=== PATIENT | female | born 1985 | race Caucasian/White ===

== ENCOUNTER 2021-07-22 14:12 | Emergency (ER) | payer MEDICAID, SELFPAY ==
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
[2021-07-22 14:19] VITALS: BP 110/72; PULSE 83; O2SAT 98
[2021-07-22 14:33] VITALS: BP 103/66; PULSE 74; RESP 18; TEMP 36.7; O2SAT 99; BMI 35.2
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
== END 2021-07-22 15:39 | disposition home or self-care (01) ==
PROVIDERS: Emergency Provider Internal Medicine; PCP Family Medicine
DX: S93.492A Sprain of other ligament of left ankle, initial encounter (principal); S40.812A Abrasion of left upper arm, initial encounter; S90.512A Abrasion, left ankle, initial encounter; X58.XXXA Exposure to other specified factors, initial encounter; Y93.9 Activity, unspecified; Y92.9 Unspecified place or not applicable; Y99.9 Unspecified external cause status; Z79.899 Other long term (current) drug therapy
CPT/HCPCS: 73610; 73630; 99283

== ENCOUNTER 2021-07-27 14:44 | Outpatient (REF) | payer MEDICAID, SELFPAY ==
--- NOTE | ~2021-07-27 | XR_ITS ---
EXAMINATION: XR SHOULDER, LEFT CLINICAL INFORMATION: Pain COMPARISON: None TECHNIQUE: AP external rotation, Grashey, scapular Y, and axillary views of the left shoulder. FINDINGS: The bones and soft tissues are normal. No fracture. Glenohumeral and acromioclavicular alignment is anatomic with normal joint space. No abnormal soft tissue calcifications. XR/XR shoulder LT min 2V IMPRESSION: Normal left shoulder.
== END 2021-07-27 14:45 | disposition home or self-care (01) ==
LOC: HO.LAB 14:44
PROVIDERS: Absent Provider Family Medicine; PCP Family Medicine; Visit Provider Nurse Practitioner Primary Care
DX: M25.512 Pain in left shoulder (principal)
CPT/HCPCS: 73030

== ENCOUNTER 2022-09-10 12:26 | Emergency (ER) | payer MEDICAID, SELFPAY ==
--- NOTE | ~2022-09-10 | CT_ITS ---
EXAMINATION: CT HEAD WITHOUT CONTRAST CLINICAL INFORMATION: Headache and hand tingling COMPARISON: None TECHNIQUE: Contiguous axial imaging was performed from the skull base to vertex without intravenous administration of contrast. This CT examination was performed using dose optimization techniques as appropriate, variously including the following: *Automated exposure control *Adjustment of mA and/or kV according to patient size (this includes techniques or standardized protocols for targeted exams where dose is matched to indication/reason for exam; i.e. extremities or head) *Use of iterative reconstruction technique DLP: 692 mGy-cm FINDINGS: Findings: There is no evidence for an extra-axial collection. There is no evidence for intra-or extra-axial hemorrhage. The ventricles and extra-axial CSF spaces are appropriate. Guerra-white matter differentiation is normal. No mass, mass effect or infarct is seen. Review of bone windows is normal. Visualized paranasal sinuses, mastoid air cells and middle ears are clear. CT/CT head/brain wo IV con IMPRESSION: Unremarkable exam.
[2022-09-10 12:37] VITALS: BP 129/83; PULSE 70; RESP 18; TEMP 36.2; O2SAT 98; BMI 33.5
--- NOTE | 2022-09-10 12:47 | ED.HA ---
HPI - Headache General Chief Complaint: Headache <Caleb Rose MD - Last Filed: 09/10/22 12:49> Stated Complaint: r eye drooping <Caleb Rose MD - Last Filed: 09/10/22 12:49> Time Seen by Provider: 09/10/22 14:57 <Caleb Rose MD - Last Filed: 09/10/22 12:49> Source: patient <POONAM Macedo - Last Filed: 09/10/22 15:58> Mode of arrival: ambulatory <POONAM Macedo - Last Filed: 09/10/22 15:58> Limitations: no limitations <POONAM Macedo - Last Filed: 09/10/22 15:58> History of Present Illness HPI Narrative: 37-year-old female with history of migraine headaches presents to the ER for evaluation of rights sided eye droop and swelling of her upper eyelid that started yesterday when she woke up. She also showed that her right arm was numb when she woke up yesterday from the elbow down to the hand. She states she sleeps on her back and did not sleep on that arm. She reports the numbness is now resolved but she reports pain in her right forearm with any movement of her hand or wrist, or with palpation. She denies any weakness in the right side just pain. She reports today when she woke up the right eyelid with a little more swollen and droopy than it was yesterday. She denies any difficulty with speech or swallowing. She reports she is treated with multiple medications for migraines and she has had throbbing headaches lately. She had meds adjusted by her PCP and is due to see them in 1 month. <POONAM Macedo - Last Filed: 09/10/22 15:58> MD elicited complaint: headache and other (Right eyelid drooping and right arm numbness and pain) <POONAM Macedo - Last Filed: 09/10/22 15:58> Pertinent past history: migraines <POONAM Macedo - Last Filed: 09/10/22 15:58> Onset (ago): day(s) (1) <POONAM Macedo Last Filed: 09/10/22 15:58> Onset description: suddenly <POONAM Macedo Last Filed: 09/10/22 15:58> Location: right <POONAM Macedo - Last Filed: 09/10/22 15:58> Severity: moderate <POONAM Macedo - Last Filed: 09/10/22 15:58> Quality & Timing: aching and throbbing <POONAM Macedo - Last Filed: 09/10/22 15:58> Exacerbating factors: none <POONAM Macedo - Last Filed: 09/10/22 15:58> Relieving factors: nothing <POONAM Macedo - Last Filed: 09/10/22 15:58> Context: occurred at rest <POONAM Macedo - Last Filed: 09/10/22 15:58> Treatments prior to arrival: none <POONAM Macedo - Last Filed: 09/10/22 15:58> Related Data Home Medications: Previous Rx's Medication Instructions Recorded cyclobenzaprine 10 mg tablet 10 mg PO TID PRN muscle spasm #10 07/22/21 tabs ibuprofen 600 mg tablet 600 mg PO Q8H PRN pain #20 tabs 07/22/21 <Caleb Rose MD - Last Filed: 09/10/22 12:49> Allergies/Adverse Reactions: Allergies Allergy/AdvReac Type Severity Reaction Status Date / Time No Known Allergies Allergy Mild UNKNOWN Verified 07/22/21 14:35 <Caleb Rose MD - Last Filed: 09/10/22 12:49> Review of Systems Review of Systems: Constitutional: No Fever, No Chills ENT/Mouth: No sore throat, No Rhinorrhea, No Swallowing Difficulty Eyes: No Eye Pain, + Swelling, No Redness Cardiovascular: No Chest Pain, No SOB Respiratory: No Cough, No Sputum, No Wheezing, No dyspnea Gastrointestinal: No Nausea, No Vomiting, No Diarrhea, No abdominal Pain Musculoskeletal: No joint pain, No Myalgias Skin: No Skin Lesions, No rash Neuro: No Weakness, + Numbness, No Dizziness, + Headache Psych: + Anxiety/Panic, No Depression Heme/Lymph: No Bruising, No Lymphadenopathy <POONAM Macedo - Last Filed: 09/10/22 15:58> [facility] Past Medical History Medical History: Medical History (Updated 11/22/22 @ 15:29 by POONAM Macedo) No known health problems <Caleb Rose MD - Last Filed: 09/10/22 12:49> Social History Social History: Social History Advance Directives: No Advance Directives Information Provided: No <Caleb Rose MD - Last Filed: 09/10/22 12:49> Physical Exam Vital Signs: Vital Signs: Last Vital Signs Temp 98.6 F 09/10/22 15:32 Pulse 74 09/10/22 15:32 Resp 16 09/10/22 15:32 BP 111/69 09/10/22 15:32 Pulse Ox 98 09/10/22 15:32 O2 Del Method 09/10/22 15:32 BMI result Body Mass Index 33.5 <Caleb Rose MD - Last Filed: 09/10/22 12:49> Vital Signs: Last Vital Signs Temp 98.6 F 09/10/22 15:32 Pulse 74 09/10/22 15:32 Resp 16 09/10/22 15:32 BP 111/69 09/10/22 15:32 Pulse Ox 98 09/10/22 15:32 O2 Del Method 09/10/22 15:32 BMI result Body Mass Index 33.5 <POONAM Macedo - Last Filed: 09/10/22 15:58> Appearance: Alert. Oriented X3. No acute distress. Eyes: Right upper eyelid with mild generalized swelling and ptosis. No erythema. Pupils equal, round and reactive to light. ENT: Pharynx normal. Neck: Normal inspection. Neck supple. No midline tenderness. Normal range of motion. CVS: Normal heart rate and rhythm. Pulses normal. Respiratory: No respiratory distress. Breath sounds normal. Skin: Skin warm and dry. Normal skin color. Normal skin turgor. No rashes. Extremities: No lower extremity edema. Neuro: Oriented X 3. No motor deficit. No sensory deficit. CN II-XII intact. Normal speech and cognition. Strength is equal and symmetrical throughout. <POONAM Macedo - Last Filed: 09/10/22 15:58> NIH Stroke Scale Internal: Initial- Upon Arrival <POONAM Macedo - Last Filed: 09/10/22 15:58> Level of Consciousness: Alert <POONAM Macedo - Last Filed: 09/10/22 15:58> Level of Consciousness Questions: Answers both questions correctly <POONAM Macedo - Last Filed: 09/10/22 15:58> Level of Consciousness Commands: Performs both tasks correctly <POONAM Macedo - Last Filed: 09/10/22 15:58> Best Gaze: Normal <POONAM Macedo - Last Filed: 09/10/22 15:58> Visual: No visual loss <POONAM Macedo - Last Filed: 09/10/22 15:58> Facial Palsy: Minor paralyis <POONAM Macedo - Last Filed: 09/10/22 15:58> Motor Arm (Right): No drift <POONAM Macedo - Last Filed: 09/10/22 15:58> Motor Arm (Left): No drift <POONAM Macedo - Last Filed: 09/10/22 15:58> Motor Leg (Right): No drift <POONAM Macedo - Last Filed: 09/10/22 15:58> Motor Leg (Left): No drift <POONAM Macedo - Last Filed: 09/10/22 15:58> Limb Ataxia: Absent <POONAM Macedo - Last Filed: 09/10/22 15:58> Sensory: Normal <POONAM Macedo - Last Filed: 09/10/22 15:58> Best Language: No aphasia <POONAM Macedo - Last Filed: 09/10/22 15:58> Dysarthia: Normal <POONAM Macedo - Last Filed: 09/10/22 15:58> Extinction and Inattention: No abnormality <POONAM Macedo - Last Filed: 09/10/22 15:58> Score: 1 <POONAM Macedo - Last Filed: 09/10/22 15:58> Course Reevaluation(s) Reevaluation #1: 37 yo female with history of migraine headache c/o right facial numbness, droopy eye and right hand tingling which started yesterday. Currently on topamax, sumitriptan prn and zofran prn for headaches. No known tick bite. Never had imaging. Lyme titer and CT head ordered. <Caleb Rose MD - Last Filed: 09/10/22 12:49> Time: 12:47 <Caleb Rose MD - Last Filed: 09/10/22 12:49> Reevaluation #2: Patient seen and evaluated in the emergency department. Her exam is not consistent with Thomas's palsy. Her CT scan is negative. She has no sensory or motor deficits on examination. Her right eye droop is due to some right upper eyelid swelling, unclear etiology. Lyme titer was sent. Case discussed with Dr. Roes, could be due to atypical migraine. She has an appointment with her PCP coming up after medications were adjusted. Comfortable with discharge home with outpatient follow-up. Patient advised come back to the ER symptoms were to worsen. <POONAM Macedo - Last Filed: 09/10/22 15:58> Time: 15:40 <POONAM Macedo - Last Filed: 09/10/22 15:58> Critical Care Time Critical Care Time Critical Care Time: No <POONAM Macedo - Last Filed: 09/10/22 15:58> Discharge Plan Discharge Clinical Impression: Migraine, Arm pain, right <Caleb Rose MD - Last Filed: 09/10/22 12:49> Patient Disposition: Home, Self-Care <Caleb Rose MD - Last Filed: 09/10/22 12:49> Instructions: Migraine Headache (ED) <Caleb Rose MD - Last Filed: 09/10/22 12:49> Additional Instructions: Your head CT today was normal. If you test positive for Lyme, we will call [facility] started on antibiotics for this. Recommend rest, no strenuous activity or lifting with the right arm. Take your previously prescribed medications for her migraines. This may be a manifestation of an atypical migraine. Follow-up with your doctor. If you develop new or worsening symptoms call 911 or come back to the ER for further evaluation. <Caleb Rose MD - Last Filed: 09/10/22 12:49> Prescriptions: No Action ibuprofen 600 mg tablet 600 mg PO Q8H PRN (Reason: pain) Qty: 20 0RF cyclobenzaprine 10 mg tablet 10 mg PO TID PRN (Reason: muscle spasm) Qty: 10 0RF <Caleb Rose MD - Last Filed: 09/10/22 12:49> Referrals: Jazmín Quevedo MD [Primary Care Provider] - <Caleb Rose MD - Last Filed: 09/10/22 12:49> Stand Alone Forms: Work/School Release <Caleb Rose MD - Last Filed: 09/10/22 12:49> Interventions: ED Discharge Assessment Last Done: 09/10/22 15:48 <Caleb Rose MD - Last Filed: 09/10/22 12:49> Discharge Date/Time: 09/10/22 15:48 <Caleb Rose MD - Last Filed: 09/10/22 12:49>
--- NOTE | 2022-09-10 14:30 | PC.NURSE ---
PT reports right eye swelling, right arm pain. A&Ox4, neuro exam intact. Right eye lid swelling with redness noted. Denies trauma to area.
[2022-09-10 15:32] VITALS: BP 111/69; PULSE 74; RESP 16; TEMP 37; O2SAT 98
[2022-09-13 20:51] LABS: Lyme Abs Screen <0.90 index
== END 2022-09-10 15:48 | disposition home or self-care (01) ==
PROVIDERS: Emergency Medicine; Emergency Provider Emergency Medicine; PCP Family Medicine
DX: G43.909 Migraine, unspecified, not intractable, without status migrainosus (principal); R20.2 Paresthesia of skin; Z79.899 Other long term (current) drug therapy
CPT/HCPCS: 36415; 70450; 86617; 86618; 99283; 99284

== ENCOUNTER 2022-10-30 08:28 | Outpatient (REF) | payer MEDICAID, SELFPAY ==
--- NOTE | ~2022-10-30 | MR_ITS ---
EXAMINATION: MRI OF THE BRAIN WITHOUT CONTRAST CLINICAL INFORMATION: Increased headache with nausea, worse lying down. COMPARISON: CT scan of the head 09/10/2022. TECHNIQUE: MRI of the brain was obtained using routine sequences without contrast. FINDINGS: No diffusion abnormalities are identified to suggest an acute or subacute infarct. No mass effect or midline shift is seen. The ventricles and sulci are normal in size. Brain parenchymal signal is unremarkable. No extra-axial fluid collections are seen. The brainstem and cerebellum are normal. No pathologic magnetic susceptibility artifact is identified on the gradient refocused acquisition. The craniovertebral junction and marrow signal are normal. There is a 1.3 mm area of low signal in the pars intermedia region of the pituitary gland, which may be consistent with a pars intermedia cyst. The major intracranial flow-voids at the level of the [place] are preserved. The dural venous sinus flow-voids are maintained. The mastoid air cells are well-aerated. There is mucoperiosteal thickening in the inferior right maxillary and bilateral ethmoid sinuses. The left frontal sinus is hypoplastic. MR/MR head/brain wo con IMPRESSION: 1. There are no acute bleeds or infarcts. No masses are demonstrated. 2. There is mild paranasal sinus disease.
== END 2022-10-30 08:29 | disposition home or self-care (01) ==
LOC: HO.MRI 08:28
PROVIDERS: PCP Family Medicine; Visit Provider Family Medicine
DX: G44.049 Chronic paroxysmal hemicrania, not intractable (principal)
CPT/HCPCS: 70551

== ENCOUNTER → 2023-03-05 09:11 | Outpatient (BNVA) | payer MEDICAID, SELFPAY | PROVIDERS: PCP Family Medicine; Referring Provider Family Medicine; Visit Provider Internal Medicine | DX: R00.2 Palpitations (principal) | CPT/HCPCS: 93005; 99202 ==

== ENCOUNTER 2023-05-29 15:50 | Outpatient (REF) | payer MEDICAID, SELFPAY ==
--- NOTE | ~2023-05-29 | XR_ITS ---
EXAMINATION: XR WRIST, LEFT CLINICAL INFORMATION: Left wrist pain beginning one week ago. COMPARISON: None available. TECHNIQUE: PA, lateral, and oblique views of the left wrist. FINDINGS: The bones and soft tissues appear unremarkable. No fracture appreciated. Alignment is anatomic with normal joint spaces. No erosions or abnormal soft tissue calcifications. XR/XR wrist LT min 3V IMPRESSION: Normal Pavel film examination of the left wrist.
== END 2023-05-29 15:51 | disposition home or self-care (01) ==
LOC: HO.HHCX 15:50
PROVIDERS: Visit Provider Pediatrics
DX: S63.502A Unspecified sprain of left wrist, initial encounter (principal)
CPT/HCPCS: 73110

== ENCOUNTER 2023-06-11 08:07 | Outpatient (REF) | payer MEDICAID, SELFPAY ==
--- NOTE | ~2023-06-11 | MM_ITS ---
EXAMINATION: MM SCREENING DIGITAL BREAST TOMOSYNTHESIS, BILATERAL CLINICAL INFORMATION: Screening. Asymptomatic. COMPARISON: Mammography: None. Baseline exam. TECHNIQUE: Digital breast tomosynthesis is performed in both the craniocaudal and mediolateral oblique views along with computer-aided detection (CAD). Synthesized 2D images are generated from the tomosynthesis. FINDINGS: There are scattered areas of fibroglandular density (ACR BI-RADS breast composition Category b). There are bilateral nipple rings present. There is a metallic object in the far posterior, slightly medial and upper left breast, unknown etiology or significance. This is not typical for a biopsy clip. This localizes to the skin on tomographic images. In the left breast, lower inner quadrant, middle one third, is a focal asymmetry for which diagnostic views are recommended. In the left breast in the MLO view only, there is a second oval asymmetry in one view slightly upper aspect without definite CC correlate, mid depth, for which diagnostic views are recommended. No additional suspicious findings right breast. In the left breast, there are no suspicious masses, suspicious grouped calcifications, or areas of architectural distortion. MM/MM tomosynthesis screening BI IMPRESSION: 1. Focal asymmetry right breast slightly lower inner quadrant, middle one third, for which diagnostic views are recommended to include 3-D spot CC and spot MLO views. 2. One view asymmetry seen right breast on MLO view only, upper aspect, middle one third, for which diagnostic views recommended to include 3-D spot MLO view. 3. As always, should the findings persist, ultrasound should be scheduled at the discretion of the interpreting radiologist. 4. There are no suspicious findings in the left breast. ASSESSMENT: BI-RADS BI-RADS 0 - Incomplete: Needs additional Imaging. RECOMMENDATION: 1. Additional views of the right breast 2. Targeted ultrasound if warranted after review of the additional views. 3. Radiology department staff will contact the patient for additional imaging. Additional Imaging required This examination should not preclude the clinical evaluation of a suspicious palpable abnormality.
== END 2023-06-11 08:08 | disposition home or self-care (01) ==
LOC: HO.MAMMO 08:07
PROVIDERS: PCP Family Medicine; Visit Provider Family Medicine
DX: Z12.31 Encounter for screening mammogram for malignant neoplasm of breast (principal)
CPT/HCPCS: 77063; 77067

== ENCOUNTER → 2023-06-11 08:15 | Outpatient (BNV) | payer MEDICAID, SELFPAY | PROVIDERS: PCP Family Medicine; Visit Provider Radiology Diagnostic Radiology | DX: Z12.31 Encounter for screening mammogram for malignant neoplasm of breast (principal) | CPT/HCPCS: 77063; 77067 ==

== ENCOUNTER → 2023-07-02 08:00 | Outpatient (BNV) | payer MEDICAID, SELFPAY | PROVIDERS: PCP Family Medicine; Visit Provider Radiology Diagnostic Radiology | DX: R92.8 Other abnormal and inconclusive findings on diagnostic imaging of breast (principal) | CPT/HCPCS: 76642; 77061; 77065 ==

== ENCOUNTER 2023-07-02 08:02 | Outpatient (REF) | payer MEDICAID, SELFPAY ==
--- NOTE | ~2023-07-02 | US_ITS ---
EXAMINATION: MM DIAGNOSTIC DIGITAL BREAST TOMOSYNTHESIS, RIGHT US BREAST LIMITED, RIGHT MAMMOGRAPHY: CLINICAL INFORMATION: Follow-up from screening mammography: Evaluate one view asymmetry seen right MLO projection superiorly. Evaluate 2 view asymmetric density seen lower inner right breast, middle one third. COMPARISON: Mammography: Baseline screening examination 06/11/2023. TECHNIQUE: Digital right breast tomosynthesis is performed utilizing full-field right 3-D digital mediolateral view, as well as 3-D right spot compression MLO views x2, and CC compression view, along with computer-aided detection (CAD). Synthesized 2D images are generated from the tomosynthesis. FINDINGS: There are scattered areas of fibroglandular density (ACR BI-RADS breast composition Category b). On diagnostic views, the one view asymmetry seen in the upper right breast on the MLO projection appears to persist, however there is no correlate on either the MLO tomosynthesis, or 90 degree lateral right ML tomosynthesis. This most likely represents superimposition artifact of normal overlapping tissues but will be evaluated with subsequent ultrasound. The focal asymmetry in the right breast slightly lower inner quadrant, middle one third, persists on diagnostic views and will be evaluated with subsequent ultrasound. ULTRASOUND: CLINICAL INFORMATION: Evaluate asymmetries as detailed above. COMPARISON: No prior relevant ultrasound. TECHNIQUE: Targeted sonographic evaluation of the right breast was performed spanning the 3:00 to 5:00 positions, and 9-10 o'clock positions, using a high frequency linear transducer. Selected archived documentation. FINDINGS: RIGHT BREAST: There is a mixture of fatty and fibroglandular tissue. No suspicious mass is seen. There is no pathologic acoustic shadowing. There is fibrocystic change noted in the 9-10 o'clock axis. There is no definite ultrasonographic correlate to the asymmetries seen on mammography. US/US breast RT limited mamm only IMPRESSION: Right breast asymmetry is seen on mammography persist on diagnostic views but do not have ultrasonographic correlate. These findings most likely represent fibrocystic changes/overlapping breast tissues, and are probably benign. Six-month interval follow-up right breast mammography to include standard 3-D right CC and MLO views recommended to ensure stability. Results were discussed with the patient by the technologist. OVERALL ASSESSMENT: Mammography: BI-RADS 3 - Probably benign finding(s) - 6 month follow-up suggested Ultrasound: BI-RADS 3 - Probably benign finding(s) - 6 month follow-up suggested RECOMMENDATION: 6 Month F/U This patient's information was entered into a reminder system with a target due date for their next mammogram.
== END 2023-07-02 08:03 | disposition home or self-care (01) ==
LOC: HO.MAMMO 08:02
PROVIDERS: PCP Family Medicine; Visit Provider Family Medicine
DX: N64.89 Other specified disorders of breast (principal)
CPT/HCPCS: 76642; 77061; 77065

== ENCOUNTER 2023-07-11 17:42 | Outpatient (REF) | payer MEDICAID, SELFPAY | END 2023-07-11 17:43 | disposition home or self-care (01) | LOC: HO.LNP 17:42 | PROVIDERS: Visit Provider Registered Nurse | DX: B34.9 Viral infection, unspecified (principal) | CPT/HCPCS: 87070; 87147 ==

== ENCOUNTER 2023-07-23 02:40 | Emergency (ER) | payer MEDICAID, SELFPAY ==
--- NOTE | ~2023-07-23 | XR_ITS ---
EXAMINATION: XR CHEST CLINICAL INFORMATION: Concern for pneumonia. COMPARISON: None available. TECHNIQUE: Frontal view of the chest was obtained. FINDINGS: The cardiomediastinal silhouette is normal. There is no focal lung consolidation or pleural effusion. The bony structures and soft tissues are unremarkable. XR/XR chest 1V IMPRESSION: No active cardiopulmonary disease.
[2023-07-23 02:45] VITALS: BP 110/66; PULSE 79; RESP 18; TEMP 36.7; O2SAT 98; BMI 33.6
[2023-07-23 03:16] LABS: COVID-19 Test Negative (Negative); IDNOW Serial# BCCEAD1C
[2023-07-23 03:18] LABS: IDNOW Serial# 08D9AD1C; Influenza A Negative (Negative); Influenza B2 Negative (Negative)
[2023-07-23 03:58] VITALS: BP 91/60; PULSE 65; RESP 16; O2SAT 98
--- NOTE | 2023-07-23 05:11 | ED_ITS ---
HPI - URI/Sore Throat General Chief Complaint: Upper Respiratory Symptoms Stated Complaint: flu like symptoms Time Seen by Provider: 07/23/23 05:06 Source: patient Mode of arrival: ambulatory Limitations: no limitations History of Present Illness HPI Narrative: Patient comes in the emergency room complaining of 3 weeks of coughing, chest pain from cough, chills. Patient states that she has been tested multiple times for flu and COVID and it is negative. However, patient states the cough keeps getting worse. Patient shortness of breath, no fever at [place] Related Data Home Medications Medication Instructions Recorded Confirmed ondansetron HCl 4 mg tablet 4 mg PO PRN nausea 03/05/23 03/05/23 sumatriptan succinate 25 mg tablet 25 mg PO PRN 03/05/23 03/05/23 topiramate 25 mg tablet 25 mg PO QPM PRN migraine 03/05/23 03/05/23 Previous Rx's Medication Instructions Recorded cyclobenzaprine 10 mg tablet 10 mg PO TID PRN muscle spasm #10 07/22/21 tabs codeine 6.3 mg-guaifenesin 100 10 ml PO Q4-6H PRN cough #473 mL 07/23/23 mg/5 mL oral liquid Allergies Allergy/AdvReac Type Severity Reaction Status Date / Time No Known Allergies Allergy Mild UNKNOWN Verified 03/05/23 09:25 Review of Systems Review of Systems: Constitutional : No Weight loss, No Fever, No Chills, No Night Sweats, No Fatigue, No Malaise ENT/Mouth : No Hearing loss, No Ear Pain, complaining a of Nasal Congestion, No Sinus Pain, No Hoarseness, No sore throat, No Rhinorrhea, No Swallowing Difficulty Eyes: No Eye Pain, No Swelling, No Redness, No Foreign Body, No Discharge, No Vision Changes Cardiovascular : No Chest Pain, No SOB, No Dyspnea on Exertion, No Orthopnea, No Edema, No Palpitations Respiratory : Complaining of worsening cough, shortness of breath Gastrointestinal, no nausea vomiting, no Diarrhea, No Constipation, No abdominal Pain, No Hematochezia, No Melena Genitourinary : no irregular bleeding, No Dysuria, No Urinary Frequency, No Hematuria, No Urinary Incontinence, No Urgency, No Flank Pain, No Urinary Flow Changes, No Hesitancy Musculoskeletal : No joint pain, No Myalgias, No Joint Swelling Skin : No Skin Lesions, No rash Neuro : No Weakness, No Numbness, No Paresthesias, No Loss of Consciousness, No Dizziness, No Headache Psych : No Anxiety/Panic, No Depression, No SI/HI/AH/VH, No Social Issues, Heme/Lymph: No Bruising, No Bleeding,No Lymphadenopathy Endocrine : No Polyuria, No Polydipsia, No Temperature Intolerance PMF Past Medical History Medical History No known health problems Family History Family History (Updated 03/05/23 @ 09:26 by Marbella Rapp) Mother No problems noted. Social History Social History (Updated 03/05/23 @ 09:27 by Marbella Rapp) Patient Tobacco Use Status: Current everyday Tobacco user Tobacco use type: Cigarette Cigarettes Per Day: 6 Advance Directives: No Advance Directives Information Provided: No Physical Exam Vital Signs: Vital Signs: Last Vital Signs Temp 98.1 F 07/23/23 02:45 Pulse 65 07/23/23 03:58 Resp 16 07/23/23 03:58 BP 91/60 07/23/23 03:58 Pulse Ox 98 07/23/23 03:58 O2 Del Method Room Air 07/23/23 03:58 BMI result Body Mass Index 33.6 Const: Other: Appearance: Alert. Oriented X3. No acute distress. Eyes: Pupils equal, round and reactive to light. ENT: Pharynx normal. Patient does have nasal congestion, Neck: Normal inspection. Neck supple. No lymph nodes noted. No crepitus CVS: Normal heart rate and rhythm. Pulses normal. Normal S1 and S2 Respiratory: No respiratory distress. Breath sounds normal. No Wheezing. No rales Abdomen: Soft and nontender. No rigidity. No distention. Skin: Skin warm and dry. Normal skin color. Normal skin turgor. Extremities: No lower extremity edema. No Lacerations. No Rash Neuro: Oriented X 3. No motor deficit. No sensory deficit. Moving all extremities. No slurred speech. CN 2 through 12 grossly intact Psych: calm, cooperative, normal affect Course Course Course Narrative: -my interpretation of labs, patient tested negative for COVID RSV and flu -chest x-ray: Medical Decision Making Medical Decision Making [facility] Narrative: -my interpretation of chest x-ray: No pneumonia -interpretation of labs, negative for COVID, influenza -patient likely has chronic bronchitis Differential Diagnosis Differential Diagnoses: The differential diagnosis associated with the presentation includes (COVID, influenza, bronchitis, pneumonia cough earlier) Lab Data MDM Lab Attestation statement: I reviewed the patient's lab results. Labs: Lab Results 07/23/23 Range/Units 02:55 COVID-19 (ALISHA) Negative (Negative) COVID-19 Clin Com See Note Influenza Type A (PERLA) Negative (Negative) Influenza Type B (PERLA) Negative (Negative) Influenza A & B Note See Note Independent Interpretation I performed an independent interpretation of an: Plain X-Ray Radiology Impression Discussion of test interpretation with radiology: I have reviewed the radiologist's reading. Radiologist Impression: FINDINGS: The cardiomediastinal silhouette is normal. There is no focal lung consolidation or pleural effusion. The bony structures and soft tissues are unremarkable. XR/XR chest 1V IMPRESSION: No active cardiopulmonary disease. Discharge Plan Discharge Clinical Impression: Viral bronchitis Patient Disposition: Home, Self-Care Instructions: Acute Bronchitis (ED) Additional Instructions: Is likely that you will have cough for the next 6-10 weeks, gradually getting better. Please follow-up with your primary care physician tomorrow. If you have any worsening or new symptoms, please return to the emergency room or call 911 Prescriptions: New codeine-guaifenesin 6.3-100 mg/5 mL liquid 10 ml PO Q4-6H PRN (Reason: cough) Qty: 473 0RF No Action cyclobenzaprine 10 mg tablet 10 mg PO TID PRN (Reason: muscle spasm) Qty: 10 0RF sumatriptan succinate 25 mg tablet 25 mg PO PRN ondansetron HCl 4 mg tablet 4 mg PO PRN (Reason: nausea) topiramate 25 mg tablet 25 mg PO QPM PRN (Reason: migraine)
--- NOTE | 2023-07-23 06:18 | PC.NURSE ---
No sob or chest pain, no respiratory distress, reviewed discharge instruction with pt. pt verbalized understanding.
== END 2023-07-23 06:19 | disposition home or self-care (01) ==
PROVIDERS: Emergency Provider Emergency Medicine; PCP Family Medicine
DX: J20.8 Acute bronchitis due to other specified organisms (principal); R05.9 Cough, unspecified; R07.89 Other chest pain; F17.210 Nicotine dependence, cigarettes, uncomplicated; Z20.822 Contact with and (suspected) exposure to COVID-19; Z20.828 Contact with and (suspected) exposure to other viral communicable diseases; Z71.6 Tobacco abuse counseling; Z79.899 Other long term (current) drug therapy
CPT/HCPCS: 71045; 87502; 87635; 99282; 99283

== ENCOUNTER 2023-10-19 09:05 | Emergency (ER) | payer MEDICAID, SELFPAY ==
--- NOTE | ~2023-10-19 | XR_ITS ---
EXAMINATION: XR CHEST CLINICAL INFORMATION: Cough. COMPARISON: None available. TECHNIQUE: 2 views of the chest were obtained. FINDINGS: The lungs are clear. The cardiomediastinal silhouette is normal in size. There is no pleural effusion or pneumothorax. No acute osseous abnormality. XR/XR chest 2V IMPRESSION: No acute cardiopulmonary findings.
[2023-10-19 09:14] VITALS: BP 116/67; PULSE 83; RESP 16; TEMP 36.6; O2SAT 98; BMI 35.7
--- NOTE | 2023-10-19 09:43 | ED_ITS ---
HPI - General Adult General Chief complaint: General Medical Stated complaint: Flu symptoms Time Seen by Provider: 10/19/23 09:34 Source: patient, RN notes reviewed and old records reviewed Mode of arrival: ambulatory History of Present Illness HPI narrative: 38-year-old female with no significant past medical history presenting to the ED complaining of right-sided lower back spasms x few weeks, nonradiating, generalized fatigue/malaise, nasal congestion, cough, chills & ?syncopal episode yesterday after donating plasma. Admits donates plasma weekly, felt generally unwell prior, and worse after donating plasma yesterday, states when driving home felt lightheaded, pulled over and may have passed out, however daughter states patient did not pass out and maybe had seizure, but no witnessed convulsions, tongue biting or incontinence. Patient does admit to remote hx of epilepsy when she was a child however has been off medications/follow-up since she 14yo. Denies chest pain/shortness of breath, abdominal pain, nausea/vomiting at present, incontinence/retention Related Data Home Medications Medication Instructions Recorded Confirmed ondansetron HCl 4 mg tablet 4 mg PO PRN nausea 03/05/23 03/05/23 sumatriptan succinate 25 mg tablet 25 mg PO PRN 03/05/23 03/05/23 topiramate 25 mg tablet 25 mg PO QPM PRN migraine 03/05/23 03/05/23 Previous Rx's Medication Instructions Recorded cyclobenzaprine 10 mg tablet 10 mg PO TID PRN muscle spasm #10 07/22/21 tabs codeine 6.3 mg-guaifenesin 100 10 ml PO Q4-6H PRN cough #473 mL 07/23/23 mg/5 mL oral liquid Allergies Allergy/AdvReac Type Severity Reaction Status Date / Time No Known Allergies Allergy Mild UNKNOWN Verified 10/19/23 09:14 Review of Systems 2 Review of Systems: Constitutional: No Fever, +Chills, + Fatigue, + Malaise ENT/Mouth: No Ear Pain, No Nasal Congestion, No sore throat, No Rhinorrhea, No Swallowing Difficulty Eyes: No Eye Pain, No Swelling, No Redness, No Vision Changes Cardiovascular: No Chest Pain, No SOB, No Dyspnea on Exertion,No Edema, No Palpitations Respiratory: + Cough, No Dyspnea Gastrointestinal: No Nausea, No Vomiting, No Diarrhea, No Constipation, No Abdominal pain Genitourinary: No Dysuria, No Urinary Incontinence/retention, No Flank Pain Musculoskeletal: No joint pain, +Myalgias, No Joint Swelling Skin: No Skin Lesions, No rash Neuro: No Weakness, No Numbness, No Paresthesias, + Loss of Consciousness, No Dizziness, No Headache Yes all other systems are reviewed and are negative Constitutional: Constitutional: Reports as per [facility] Past Medical History Attestation statement: The following information was validated with the patient. Source: old records reviewed Medical History No known health problems Family History Family History Mother No problems noted. Social History Social History Patient Tobacco Use Status: Current everyday Tobacco user Tobacco use type: Cigarette Cigarettes Per Day: 6 Advance Directives: No Physical Exam ED Vital Signs: Vital Signs - 24 hr 10/19/23 09:14 10/19/23 10:50 10/19/23 10:53 Temperature 97.8 F 98.6 F Pulse Rate 83 73 73 Respiratory Rate 16 16 Blood Pressure 116/67 106/61 106/61 Pulse Oximetry 98 98 Oxygen Delivery Method Room Air Room Air BMI result Body Mass Index 35.7 Const General: cooperative, healthy appearing and no acute distress Orientation/consciousness: patient oriented x3 Limitations: no limitations HENMT Head: Yes normal to inspection and Yes atraumatic Ears: hearing grossly normal bilaterally General nose exam: Normal external nose present Face and sinus: Yes normal facial exam Mouth: Normal oral and palatal mucosa present Throat: Yes posterior oropharynx normal Eyes General: appearance normal, both eyes and all related structures EOM: EOMs intact bilaterally Neck Neck: Yes normal visual inspection and Yes no meningeal signs Resp Effort & Inspection: normal respiratory effort and no respiratory distress Auscultation: clear to auscultation bilaterally, no crackles and no wheezes Cardio Rate: regular rate Heart sounds: S1 normal heart sound present and S2 normal heart sound present GI Inspection: Yes normal to inspection Palpation (GI): Soft to palpation, nontender, no guarding and not rigid General: Yes no CVA tenderness Back/Spine/Pelvis Other: No midline cervical/thoracic/lumbar spinous tenderness/step-off or deformity. + back pain not reproducible. No rash Back: no CVA tenderness Skin Rashes: no rashes Wounds: no wounds Neuro Other: Strength intact throughout. No saddle anesthesia. Sensation intact to light touch. Neurovascular intact distally General: patient oriented x3, tone normal, moves all extremities and no meningeal signs Cranial nerves: Yes CN's II-XII intact bilaterally Gait exam (Neuro): Normal gait present Motor exam (neuro): 5/5 motor strength present throughout Extrem General: Yes normal to inspection Course Course Course Narrative: -COVID-19 positive -1109--labs reassuring. UA negative -orthostatic vital signs negative Results discussed with patient including worrisome signs and symptoms and strict return precautions, and when to return to the emergency department. They verbalized understanding and feel safe for discharge at this time. Medications Administered Discontinued Medications Generic Name Dose Route Start Last Admin Trade Name Thorq PRN Reason Stop Dose Admin Acetaminophen 650 mg 10/19/23 09:59 10/19/23 10:39 Acetaminophen 325 Mg Tablet PO 10/19/23 10:00 650 mg ONCE ONE Administration Lidocaine 1 patch 10/19/23 09:59 10/19/23 10:39 Lidocaine 4 % Patch Adh..Patch TRANSDERMA 10/19/23 10:00 1 patch ONCE ONE Administration Protocol Medical Decision Making Medical Decision Making [facility] Narrative: 38-year-old female with no significant past medical history presenting to the ED complaining of right-sided lower back spasms x few weeks, nonradiating, generalized fatigue/malaise, nasal congestion, cough, chills & ?syncopal episode yesterday after donating plasma. On exam vital signs stable, NAD, nontoxic appearing, no midline spinous tenderness through or red flag symptoms. Ambulating with steady gait. No focal neuro deficits. Concern for metabolic/infectious etiologies vs syncope versus seizure vs viral syndrome. Lower suspicion for ACS/PE, CVA/TIA. Rule out anemia. Unlikely cauda equina/cord compression Plan: EKG, labs, UA, CXR, viral testing, orthostatics, re-evaluate Please refer to course for remaining clinical decision making, interpretation of labs/imaging results, and discussions with consultants and/or family members. Differential Diagnosis Differential Diagnoses: The differential diagnosis associated with the presentation includes As above Admission/Observation Consideration of admission/observation: Escalation of care including admission/observation considered Lab Data MDM Lab Attestation statement: I reviewed the patient's lab results. 10/19/23 10:09 10/19/23 10:09 Labs: Lab Results 10/19/23 10/19/23 10/19/23 Range/Units 09:29 10:09 10:47 WBC 4.8 (4.8-10.8) X10*3/uL RBC 5.02 (4.20-5.50) X10*6/uL Hgb 15.2 (12.0-16.0) g/dl Hct 45.1 (37.0-47.0) % MCV 89.8 (80.0-98.0) fL MCH 30.3 (27.0-33.0) pg MCHC 33.7 (31.0-35.0) g/dl RDW 12.7 (11.0-16.0) % Plt Count 182 (160-400) X10*3/uL MPV 9.3 L (9.4-12.3) fL Immature Gran % (Auto) 0.2 (0.0-0.4) % Neut % (Auto) 66.4 (45-73) % Lymph % (Auto) 19.7 L (20-40) % Harmon % (Auto) 13.1 H (2-11) % Eos % (Auto) 0.2 (0-4) % Baso % (Auto) 0.4 (0-2) % Lymph # (Auto) 1.0 L (1.2-4.9) X10*3/uL Harmon # (Auto) 0.6 (0.1-1.2) X10*3/uL Eos # (Auto) 0.0 (0.0-0.4) X10*3/uL Baso # (Auto) 0.0 (0.0-0.2) X10*3/uL Abs Immat Gran (auto) 0.01 (0.00-0.03) X10*3/uL Absolute Neuts (auto) 3.2 (2.0-8.3) x10*3/uL Absolute Nucleated RBC 0.000 (0.0-0.012) X10*3/uL Nucleated RBC % (auto) 0.0 (0.0-0.2) /100WBC Sodium 141 (135-145) mmol/L Potassium 4.7 (3.3-5.1) mmol/L Chloride 108 (96-108) mmol/L Carbon Dioxide 25 (22-29) mmol/L Anion Gap 13 (12-20) BUN 14 (9-16) mg/dL Creatinine 0.83 (0.5-1.4) mg/dL Estim Creat Clear Calc 100.3 Estimated GFR > 60 Random Glucose 99 (60-115) mg/dL Calcium 8.5 (8.4-10.2) mg/dL Magnesium 2.3 (1.6-2.6) mg/dL Total Bilirubin 0.3 (0.0-1.0) mg/dL Direct Bilirubin 0.1 (0.0-0.5) mg/dL AST 21 (5-31) U/L ALT 24 (0-31) U/L Alkaline Phosphatase 72 (39-117) U/L Total Protein 6.6 (6.5-8.0) g/dL Albumin 3.9 (3.5-5.0) g/dL Urine Color Dark Yellow Urine Appearance Cloudy Urine pH 5.5 (5.0-9.0) Ur Specific [place] >= 1.030 H (1.005-1.025) Urine Protein Trace (Neg-Trace) mg/dL Urine Glucose (UA) Negative (Negative) mg/dL Urine Ketones Trace (Negative) mg/dL Urine Blood Negative (Negative) Urine Nitrite Negative (Negative) Ur Leukocyte Esterase Negative (Negative) Urine Test (NEGATIVE) Influenza Type A (PCR) NEGATIVE (Negative) Influenza Type B (PCR) NEGATIVE (Negative) RSV RNA Qual (PCR) NEGATIVE (Negative) SARS-CoV-2 RNA (RT-PCR) POSITIVE A (Negative) 10/19/23 Range/Units 10:56 WBC (4.8-10.8) X10*3/uL RBC (4.20-5.50) X10*6/uL Hgb (12.0-16.0) g/dl Hct (37.0-47.0) % MCV (80.0-98.0) fL MCH (27.0-33.0) pg MCHC (31.0-35.0) g/dl RDW (11.0-16.0) % Plt Count (160-400) X10*3/uL MPV (9.4-12.3) fL Immature Gran % (Auto) (0.0-0.4) % Neut % (Auto) (45-73) % Lymph % (Auto) (20-40) % Harmon % (Auto) (2-11) % Eos % (Auto) (0-4) % Baso % (Auto) (0-2) % Lymph # (Auto) (1.2-4.9) X10*3/uL [place]on # (Auto) (0.1-1.2) X10*3/uL Eos # (Auto) (0.0-0.4) X10*3/uL Baso # (Auto) (0.0-0.2) X10*3/uL Abs Immat Gran (auto) (0.00-0.03) X10*3/uL Absolute Neuts (auto) (2.0-8.3) x10*3/uL Absolute Nucleated RBC (0.0-0.012) X10*3/uL Nucleated RBC % (auto) (0.0-0.2) /100WBC Sodium (135-145) mmol/L Potassium (3.3-5.1) mmol/L Chloride (96-108) mmol/L Carbon Dioxide (22-29) mmol/L Anion Gap (12-20) BUN (9-16) mg/dL Creatinine (0.5-1.4) mg/dL Estim Creat Clear Calc Estimated GFR Random Glucose (60-115) mg/dL Calcium (8.4-10.2) mg/dL Magnesium (1.6-2.6) mg/dL Total Bilirubin (0.0-1.0) mg/dL Direct Bilirubin (0.0-0.5) mg/dL AST (5-31) U/L ALT (0-31) U/L Alkaline Phosphatase (39-117) U/L Total Protein (6.5-8.0) g/dL Albumin (3.5-5.0) g/dL Urine Color Urine Appearance Urine pH (5.0-9.0) Ur Specific [place] (1.005-1.025) Urine Protein (Neg-Trace) mg/dL Urine Glucose (UA) (Negative) mg/dL Urine Ketones (Negative) mg/dL Urine Blood (Negative) Urine Nitrite (Negative) Ur Leukocyte Esterase (Negative) Urine Test NEGATIVE (NEGATIVE) Influenza Type A (PCR) (Negative) Influenza Type B (PCR) (Negative) RSV RNA Qual (PCR) (Negative) SARS-CoV-2 RNA (RT-PCR) (Negative) Independent Interpretation I performed an independent interpretation of an: EKG and Plain X-Ray Radiology Impression Discussion of test interpretation with radiology: I have reviewed the radiologist's reading. External Record Review External record reviewed: Inpatient record, Office record, Outpatient record, Prior outpatient labs, Prior outpatient radiology, Primary care record and Outside ED record Tests considered The following testing was considered but not selected: As above Prescription Management I considered prescription management with: Pain Medication Discharge Plan Discharge Clinical Impression: COVID-19 Patient Disposition: Home, Self-Care Instructions: COVID-19 (Coronavirus Disease 2019) (ED) Additional Instructions: YOU HAVE COVID-19 At this time you will be okay for discharge. Please self isolate for 5 days. Do not expose yourself to others. You may not go to work or school. Please continue to follow cold instructions and wash your hands frequently. You may take Tylenol / Motrin as directed on the bottle for pain or fever. If you have constant or persistent shortness of breath, fever unresolved with medications, chest pain, or your unable to eat or drink please return to the ED CDC Guidelines for home isolation: - Stay away from others - WEAR A MASK if you are sick AND STAY HOME - Cover your mouth and nose with a tissue when you cough or sneeze. Dispose of tissues in a lined trash can and wash your hands immediately with soap and water for at least 20 seconds. If soap and water are not available, clean hands with alcohol-based hand advisor to command in combat that contains at least 60% alcohol. - Clean your hands often with soap and water for at least 20 seconds - Avoid touching your eyes, nose and mouth with unwashed hands - Do not share dishes, drinking glasses, cups, eating utensils, towels, or bedding with other people in your home. After using these items, wash them thoroughly with soap and water or put in the skilled labor. - Clean high-touch surfaces in your isolation area ( sick room and bathroom) every day; let a caregiver clean and disinfect high-touch surfaces in other areas of the home. Clean the area or item with soap and water or another detergent if it is dirty. Then, use a household disinfectant. - Limit contact with pets and animals: If you must care for a pet, wash your hands before and after interacting with them) Prescriptions: No Action cyclobenzaprine 10 mg tablet 10 mg PO TID PRN (Reason: muscle spasm) Qty: 10 0RF codeine-guaifenesin 6.3-100 mg/5 mL liquid 10 ml PO Q4-6H PRN (Reason: cough) Qty: 473 0RF sumatriptan succinate 25 mg tablet 25 mg PO PRN ondansetron HCl 4 mg tablet 4 mg PO PRN (Reason: nausea) topiramate 25 mg tablet 25 mg PO QPM PRN (Reason: migraine) Referrals: Jazmín Quevedo MD [Primary Care Provider] - 10 days Stand Alone Forms: Work/School Release
--- NOTE | 2023-10-19 09:50 | ECG_ITS ---
Test Reason : SYNCOPE Blood Pressure : / mmHG Vent. Rate : 083 BPM Atrial Rate : 083 BPM P-R Int : 130 ms QRS Dur : 088 ms QT Int : 382 ms P-R-T Axes : 025 034 052 degrees QTc Int : 448 ms Normal sinus rhythm Normal ECG When compared with ECG of 13-FEB-2007 07:46, Vent. rate has increased BY 31 BPM Referred By: Vonnie Godinez Electronically Signed By:ISABEL LAMBERT
[2023-10-19 10:13] LABS: MANUAL DIFF FLAG NO
[2023-10-19 10:19] LABS: Basophils Percent Auto 0.4 % (0-2); Eosinophils Percent Auto 0.2 % (0-4); Hematocrit 45.1 % (37.0-47.0); Hemoglobin 15.2 g/dl (12.0-16.0); Imm Gran Abs Auto 0.01 X10*3/uL (0.00-0.03); Imm Gran Pct Auto 0.2 % (0.0-0.4); Lymphocytes Percent Auto 19.7 % (20-40); Mean Corpuscular HGB Conc 33.7 g/dl (31.0-35.0); Mean Corpuscular Hemoglobin 30.3 pg (27.0-33.0); Mean Corpuscular Volume 89.8 fL (80.0-98.0); Mean Platelet Volume 9.3 fL (9.4-12.3); Monocytes Absolute Auto 0.6 X10*3/uL (0.1-1.2); Monocytes Percent Auto 13.1 % (2-11); Neutrophils Absolute Auto 3.2 x10*3/uL (2.0-8.3); Neutrophils Percent Auto 66.4 % (45-73); Platelet Count 182 X10*3/uL (160-400); Red Blood Count 5.02 X10*6/uL (4.20-5.50); Red Cell Distribution Width 12.7 % (11.0-16.0); White Blood Count 4.8 X10*3/uL (4.8-10.8)
[2023-10-19 10:24] LABS: Influenza A PCR NEGATIVE (Negative); Influenza B PCR NEGATIVE (Negative); Resp Syncy Virus RNA Qual PCR NEGATIVE (Negative); SARS COV2 PCR INHOUSE POSITIVE (Negative)
[2023-10-19 10:36] LABS: Alanine Aminotransferase 24 U/L (0-31); Albumin Level 3.9 g/dL (3.5-5.0); Alkaline Phosphatase 72 U/L (39-117); Anion Gap 13 (12-20); Aspartate Amino Transferase 21 U/L (5-31); Bilirubin Direct 0.1 mg/dL (0.0-0.5); Bilirubin Total 0.3 mg/dL (0.0-1.0); Blood Urea Nitrogen 14 mg/dL (9-16); Calcium 8.5 mg/dL (8.4-10.2); Carbon Dioxide 25 mmol/L (22-29); Chloride 108 mmol/L (96-108); Creatinine Clr Calc Pharmacy 100.3; Estimated Glomerular Filt Rate > 60; Glucose Random 99 mg/dL (60-115); Magnesium 2.3 mg/dL (1.6-2.6); Potassium 4.7 mmol/L (3.3-5.1); Sodium 141 mmol/L (135-145); Total Protein 6.6 g/dL (6.5-8.0)
[2023-10-19] MEDS: Acetaminophen 325 MG TABLET 650 MG PO (10:39)
[2023-10-19] MEDS: Lidocaine 4 % Patch ADH..PATCH 1 PATCH TRANSDERMA (10:39)
[2023-10-19 10:50] VITALS: BP 106/61; PULSE 73
[2023-10-19 10:53] VITALS: BP 106/61; PULSE 73; RESP 16; TEMP 37; O2SAT 98
[2023-10-19 11:03] LABS: Appearance Urine Cloudy; Color Urine Dark Yellow; Glucose Urine UA Negative (Negative); Leukocyte Esterase Urine Negative (Negative); Nitrite Urine Negative (Negative); PH 5.5 (5.0-9.0); Specific Gravity - Urine >= 1.030 (1.005-1.025); Urine Blood Negative (Negative); Urine Ketones Trace mg/dL (Negative); Urine Protein Trace mg/dL (Neg-Trace)
[2023-10-19 11:05] LABS: UPreg QC Valid YES; Urine Pregnancy NEGATIVE (NEGATIVE)
== END 2023-10-19 11:21 | disposition home or self-care (01) ==
PROVIDERS: Physician Assistant; Emergency Provider Emergency Medicine; PCP Family Medicine
DX: U07.1 COVID-19 (principal)
CPT/HCPCS: 0241U; 36415; 71046; 80048; 80076; 81003; 81025; 83735; 85025; 93005; 99283; 99284

== ENCOUNTER → 2023-10-19 09:50 | Outpatient (BNV) | payer MEDICAID, SELFPAY | PROVIDERS: Emergency Provider Emergency Medicine; PCP Family Medicine; Visit Provider Internal Medicine | DX: R55 Syncope and collapse (principal) | CPT/HCPCS: 93010 ==

== ENCOUNTER 2023-12-26 12:56 | Outpatient (REF) | payer MEDICAID, SELFPAY ==
--- NOTE | ~2023-12-26 | MM_ITS ---
EXAMINATION: MM DIAGNOSTIC DIGITAL BREAST TOMOSYNTHESIS, RIGHT CLINICAL INFORMATION: 6 month Follow-up for focal 6 mm oval probably benign asymmetry seen right breast lower inner quadrant, middle one third. Previously no ultrasound correlate. COMPARISON: Mammography: 07/02/2023, 06/11/2023 (BI-RADS 0). Right breast ultrasound 07/02/2023. TECHNIQUE: Digital right breast tomosynthesis is performed in both the craniocaudal and mediolateral oblique views along with computer-aided detection (CAD). Synthesized 2D images are generated from the tomosynthesis. In addition, full-field 3-D right 90 degree ML view was also included. FINDINGS: There are scattered areas of fibroglandular density (ACR BI-RADS breast composition Category b). There is been no significant change in the focal asymmetry right breast slightly lower inner quadrant, middle one third, measuring 7 mm in diameter. This has benign features and is unchanged, measuring 6 mm in diameter. Previously no ultrasound correlate could be identified on targeted right breast ultrasound. This remains probably benign, and may be related to an intramammary lymph node or summation artifact. Additional six-month interval follow-up recommended when the patient is due for bilateral screening. No skin or axillary abnormality. No new suspicious abnormalities in the right breast. Nipple barbell again noted. MM/MM tomosynthesis diagnostic RT IMPRESSION: No findings suspicious for malignancy right breast. Stable probably benign focal asymmetry lower inner quadrant right breast, middle one third, unchanged. Recommend six-month interval follow-up when the patient is due for bilateral screening to establish one-year stability. At that time, if persistent, Second Look ultrasound may be of benefit. ASSESSMENT: BI-RADS BI-RADS 3 - Probably benign finding(s) - 12 month follow-up suggested RECOMMENDATION: 6 Month F/U Results were provided to the patient at time of visit by the technologist. This patient's information was entered into a reminder system with a target due date for their next mammogram.
== END 2023-12-26 12:57 | disposition home or self-care (01) ==
LOC: HO.MAMMO 12:56
PROVIDERS: PCP Family Medicine; Visit Provider Family Medicine
DX: R92.2 Inconclusive mammogram (principal)
CPT/HCPCS: 77061; 77065

== ENCOUNTER → 2023-12-26 13:00 | Outpatient (BNV) | payer MEDICAID, SELFPAY | PROVIDERS: PCP Family Medicine; Visit Provider Radiology Diagnostic Radiology | DX: R92.321 Mammographic fibroglandular density, right breast (principal) | CPT/HCPCS: 77061; 77065 ==

== ENCOUNTER 2024-02-18 13:57 | Outpatient (AMB) | payer MEDICAID, SELFPAY ==
--- NOTE | 2024-02-18 14:15 | A.OFFVIS_ITS ---
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 States she has a bump on her radial dorsum aspect of wrist. States she noticed this about 2 weeks ago and has increase in size. States since, it has decreased a lille however is having pain. States she has pain when she moves her wrist and affects her at work. She is also having numbness and tingling mainly at time time which started about 1 years. No EMG done. Allergies No Known Allergies Allergy (Mild, Verified 02/18/24 14:21) UNKNOWN HPI HPI DO[facility] [employer] NATUROPATHIC MEDICINE - LT wrist ganglion cyst: Details: Minal is a 39 year old right hand dominant woman who presents with complaints of a left wrist mass & bilateral hand numbness. She reports having a mass on her wrist for ~2 weeks now, which has been increasing & changing in size. She says this has been causing her pain and limiting her performance at work. 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 She complains of numbness in the bilateral thumb, index, and middle fingers. Symptoms intermittent, but daily, primarily at night. She also reports some hand weakness when trying to open jars. [facility] Medical History No known health problems Family History Mother No problems noted. 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 Review of Systems Const All systems reviewed & are unremarkable except as noted in HPI and below Physical Exam Vital Signs: BMI result Body Mass Index 35.7 Const General: cooperative, healthy appearing and no acute distress Orientation/consciousness: patient oriented x3 HEENT Head: Yes normocephalic and Yes atraumatic Eyes EOM: EOMs intact bilaterally Resp Effort & Inspection: normal respiratory effort and able to speak in complete sentences Cardio Jugular venous distension: no JVD Skin General skin exam: turgor normal Rashes: no rashes Neuro General: patient oriented x3 Extrem Other: Evaluation of Bilateral Upper Extremity: The patient is alert, oriented, and in no acute distress Neuro: Median, Ulnar, Radial nerves motor and sensory intact and sensation is normal to the tips of all digits No thenar or intrinsic wasting Good APB muscle belly firing & good finger cross Vascular: Cap refill brisk ROM: She can make a fist and extend all her digits No locking or catching Skin: No lacerations or abrasions. General: No Ecchymosis. No Erythema or evidence of infection. There is a mass on the dorsal radial of her left wrist. Measuring ~1.5cm in diameter, but this appears flatter than a week ago according to the patient and partially-deflated. This is soft and fluid-filled today but the patient says a few weeks ago this was larger and harder. Psych Appearance: grossly normal Affect: normal affect Attitude: cooperative Assessment & Plan Assessment & Plan (1) Numbness and tingling in both hands: Code(s): R20.0 - Anesthesia of skin; R20.2 - Paresthesia of skin Category: Medical (2) Ganglion cyst of dorsum of left wrist: Code(s): M67.432 - Ganglion, left wrist Category: Medical Plan Assessment & Plan: 1. Left dorsal wrist ganglion On the dorsal radial aspect of her wrist Measuring ~1.5cm in diameter, this is partially-deflated and soft to palpation I educated her about this condition This has been slowly decreasing in size in the last week I recommend she massage across this mass gently to see if this improves If this does not improve we may consider surgery We will review this again at her next appointment 2. Bilateral hand numbness In the median nerve distribution Symptoms intermittent, but daily, primarily at night I ordered a NCS to assess for peripheral nerve compression She will follow up when completed for review Scribed for Erica Gregory MD by Mateusz Tolentino, paramedical aide, on 02/18/24 at 2:25 PM, EST. Orders: Orders NE nerve conduction velocity Today R20.0 - Anesthesia of skin, R20.2 - Paresthesia of skin Coding Level of Care Code New Pt Level 3 (29670) Diagnoses Numbness and tingling in both hands R20.0; R20.2 Ganglion cyst of dorsum of left wrist M67.432
[2024-02-18 14:17] VITALS: BMI 35.7
== END 2024-02-18 14:30 | disposition home or self-care (01) ==
PROVIDERS: PCP Family Medicine; Referring Provider Family Medicine; Visit Provider Orthopaedic Surgery
DX: R20.0 Anesthesia of skin (principal); R20.2 Paresthesia of skin; M67.432 Ganglion, left wrist
CPT/HCPCS: 99203

== ENCOUNTER → 2024-02-18 13:57 | Outpatient (BNVA) | payer MEDICAID, SELFPAY | PROVIDERS: PCP Family Medicine; Visit Provider Orthopaedic Surgery | DX: R20.0 Anesthesia of skin (principal); R20.2 Paresthesia of skin; M67.432 Ganglion, left wrist | CPT/HCPCS: 99202 ==

== ENCOUNTER 2024-12-09 12:38 | Emergency (ER) | payer SELFPAY ==
--- NOTE | ~2024-12-09 | XR_ITS ---
EXAMINATION: XR LUMBOSACRAL SPINE CLINICAL INFORMATION: pain after lifting COMPARISON: None available. TECHNIQUE: Three views of the lumbosacral spine. FINDINGS: There is a prominent right transverse process of L5 joining the right S1 with the sclerosis and the articular surface. The last rib-bearing vertebra labeled T12 suggesting Castellvi type I sacralization. Endplate sclerosis and decreased intervertebral disc height at L5-S1. No acute cortical disruption or gross malalignment. No lytic or blastic lesions. XR/XR lumbar spine 2-3V IMPRESSION: Consider Bertolotti syndrome, right-sided. Electronically signed by: Grupo Garzon MD 12/09/2024 01:37 PM EST
[2024-12-09 13:15] VITALS: BP 121/58; PULSE 73; RESP 16; TEMP 36.4; O2SAT 100; BMI 33.1
--- NOTE | 2024-12-09 13:16 | ED.GENADULT ---
HPI - General Adult General Chief complaint: Back Pain/Injury Stated complaint: back pain Time Seen by Provider: 12/09/24 20:09 Source: patient and RN notes reviewed Mode of arrival: ambulatory Limitations: no limitations History of Present Illness ED Provider: Sumi Stallings PA-C HPI narrative: This is a 39-year-old female, with a history of back pain, who presents emergency department for evaluation of back pain. Patient reports that on Friday she was loading saw onto her truck, and felt pain. Patient reports that she has had pain with movement, with palpation. She denies any urinary frequency, urgency, dysuria or hematuria. No saddle anesthesia. No urinary or bowel retention or incontinence. She denies any fevers, chills, chest pain, shortness for breath, abdominal pain, nausea, vomiting or diarrhea. MD complaint: Back pain Related Data Home Medications ?Medication ?Instructions ?Recorded ?Confirmed naproxen 250 mg tablet 250 mg PO BID PRN 02/18/24 Previous Rx's ?Medication ?Instructions ?Recorded acetaminophen 500 mg tablet 1,000 mg (2 x 500 mg) PO Q8H PRN 12/09/24 (Tylenol Extra Strength) pain #30 tabs cyclobenzaprine 5 mg tablet 5 mg PO TID PRN muscle spasm #14 12/09/24 tabs lidocaine 5 % topical patch 1 patch topical DAILY #30 ea 12/09/24 (Lidoderm) prednisone 20 mg tablet 40 mg (2 x 20 mg) PO DAILY 5 days 12/09/24 #10 tabs Allergies Allergy/AdvReac Type Severity Reaction Status Date / Time No Known Allergies Allergy Mild UNKNOWN Verified 12/09/24 13:17 Review of Systems Review of Systems: Yes all other systems are reviewed and are negative Constitutional: Constitutional: Reports as per [facility] Past Medical History Medical History No known health problems Family History Family History Mother No problems noted. 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 Physical Exam ED Vital Signs: Vital Signs - 24 hr 12/09/24 13:15 Temperature 97.5 F Pulse Rate 73 Respiratory Rate 16 Blood Pressure 121/58 L Pulse Oximetry 100 Oxygen Delivery Method Room Air BMI result Body Mass Index 33.1 Const General: cooperative, comfortable and no acute distress Orientation/consciousness: patient oriented x3 Limitations: no limitations HENMT Head: Yes normal to inspection, Yes normocephalic and Yes atraumatic Ears: hearing grossly normal bilaterally General nose exam: Normal external nose present Face and sinus: Yes normal facial exam Mouth: Normal oral and palatal mucosa present, oropharynx normal and moist mucous membranes Throat: Yes posterior oropharynx normal Eyes General: appearance normal, both eyes and all related structures Eyelids: Yes eyelids normal Conjunctivae: conjunctivae normal Sclerae: sclerae normal Pupils: Equal, round and reactive pupils present EOM: EOMs intact bilaterally Neck Neck: Yes normal visual inspection, Yes full ROM and Yes no lymphadenopathy Lymphatic: no lymphadenopathy noted Chest Chest palpation & inspection: normal inspection of the chest Resp Effort & Inspection: normal respiratory effort and able to speak in complete sentences Auscultation: clear to auscultation bilaterally, no crackles, no rales, no rhonchi and no wheezes Cardio Rate: regular rate Rhythm: regular rhythm Heart sounds: S1 normal heart sound present and S2 normal heart sound present GI Other: Abdomen is soft, nontender, nondistended Inspection: Yes normal to inspection Back/Spine/Pelvis Other: No overlying skin changes or warmth. Patient has mild tenderness palpation along the lumbar midline spine, as well as paraspinous muscles, more overlying the left. DTRs are 2+. Strength 5/5 in lower extremities. Skin General skin exam: no rashes or lesions noted Trauma: no lacerations or abrasions Wounds: no wounds Neuro General: patient oriented x3 and moves all extremities Cranial nerves: Yes Equal, round and reactive pupils present Extrem General: Yes normal to inspection Right upper extremity: normal to inspection Left upper extremity: normal to inspection Right lower extremity: normal to inspection Left lower extremity: normal to inspection Course Course Course Narrative: This is a rapid medical exam performed by Ignacia Hernandez NP: Additional HPI, ROS, PE not included below will be deferred to primary provider. Patient is a 39-year-old female presenting with complaint of low back pain since Friday while lifting bags of salt. Describes as spasms. Denies bowel/bladder incontinence, saddle anesthesia. Plan: imaging Medical Decision Making Medical Decision Making [facility] Narrative: This is a 39-year-old female who presents emergency department for evaluation of low back pain since Friday. Patient has been in the emergency department for several hours prior to being seen. A lumbar spine x-ray was performed, this revealed prominent right transverse process of L5 joint with a right S1 with sclerosis in the articular surface. Consider brought totally syndrome, right-sided. I discussed with patient. She does report that she has a history of back pain however states that this back pain is different. She has no red flag back symptoms. DTRs are 2+. Strength is 5/5 in lower extremities. Will treat with Toradol injection, and discharged on prednisone, muscle relaxants, and Lidoderm patches. Given strict return precautions. She understands and agrees with plan. Patient stable for discharge. Differential Diagnosis Differential Diagnoses: The differential diagnosis associated with the presentation includes Lumbar radiculopathy, fracture, herniated disc, sciatica Radiology Impression Discussion of test interpretation with radiology: I have reviewed the radiologist's reading. Radiologist Impression: EXAMINATION: XR LUMBOSACRAL SPINE CLINICAL INFORMATION: pain after lifting COMPARISON: None available. TECHNIQUE: Three views of the lumbosacral spine. FINDINGS: There is a prominent right transverse process of L5 joining the right S1 with the sclerosis and the articular surface. The last rib-bearing vertebra labeled T12 suggesting Castellvi type I sacralization. Endplate sclerosis and decreased intervertebral disc height at L5-S1. No acute cortical disruption or gross malalignment. No lytic or blastic lesions. XR/XR lumbar spine 2-3V IMPRESSION: Consider Bertolotti syndrome, right-sided. Electronically signed by: Grupo Garzon MD 12/09/2024 01:37 PM [facility] Dictated By: Grupo Watson MD Discharge Plan Discharge Clinical Impression: Back pain Patient Disposition: Home, Self-Care Instructions: Acute Low Back Pain (ED), Back Pain (ED) Additional Instructions: You were seen in the emergency department due to back pain. Your x-ray findings are as listed below. There are no new findings, however given your symptoms, I want you to follow-up with your primary care physician as you may need further diagnostic imaging. I am also referring you to the regional facilities specialist. We had given you a medication called Toradol in the emergency department. I am discharging you home on muscle relaxants, Lidoderm patch, and pain medication. Please take Flexeril as needed for symptoms, please be advised that this is a muscle relaxants and can cause drowsiness, do not drink alcohol or drive while taking this medication. Please take prednisone as prescribed, this can help decrease inflammation and help with your symptoms. Use Lidoderm patches as prescribed, do not directly apply heat or ice to this area as this can cause thermal lopez. Take Tylenol as needed for pain. If any new or worsening symptoms occur including but not limited to worsening back pain, severe abdominal pain, chest pain, shortness of breath, please seek emergent care. Prescriptions: New prednisone 20 mg tablet 40 mg PO DAILY 5 Days Qty: 10 0RF acetaminophen [Tylenol Extra Strength] 500 mg tablet 1,000 mg PO Q8H PRN (Reason: pain) Qty: 30 0RF cyclobenzaprine 5 mg tablet 5 mg PO TID PRN (Reason: muscle spasm) Qty: 14 0RF lidocaine [Lidoderm] 5 % adhesive patch,medicated 1 patch topical DAILY Qty: 30 0RF Rx Instructions: leave on most painful area for up to 12 hrs No Action naproxen 250 mg tablet 250 mg PO BID PRN Referrals: [facility] [Provider Group] Stand Alone Forms: Work/School Release Print Language: Surinamese
[2024-12-09] MEDS: Lidocaine 4 % Patch ADH..PATCH 1 PATCH TRANSDERMA (20:29)
[2024-12-09] MEDS: Ketorolac Tromethamine 15 MG/ML VIAL IM (20:29)
[2024-12-09 20:32] VITALS: BP 126/74; PULSE 62; RESP 16; TEMP 37.1; O2SAT 99
--- OUTSIDE RECORDS SUMMARY | 2024-12-09 20:33 | XMS_ITS | Clinical Summary ---
Author Organization [employer] Address [address] [facility] [address] [place] [address] Care Team Providers Care Gang Leader Name Role Phone Jazmín Quevedo MD Primary Care Provider [phone] Allergies No known active allergies Medications SUMAtriptan (Imitrex) 25 MG tablet Take 1 tablet by mouth if needed each day. 07/31/2022 Active topiramate (Topamax) 25 MG tablet Take 25 mg by mouth at bedtime. 07/31/2022 Active cyclobenzaprine (Flexeril) 5 MG tablet Take 1 tablet by mouth if needed at bedtime for pain. 09/06/2022 Active ondansetron (Zofran) 4 MG tablet Take 1 tablet by mouth. When migraine comes with nausea, up to three times a day as needed 09/06/2022 Active amitriptyline (Elavil) 25 MG tablet Take 25 mg by mouth at bedtime. 01/06/2023 Active Benzocaine 15 MG lozengeIndicati ons:Acute viral syndrome Dissolve 15 mg in the mouth Every 4-6 hours as needed (sore throat). 100 lozenge 07/11/2023 Active baclofen (Lioresal) 10 MG tablet Take 1 tablet (10 mg) by mouth every 8 (eight) hours if needed for muscle spasms. 90 tablet 07/19/2024 Active Active Problems Problem Noted Date Diagnosed Date Ganglion cyst 02/19/2024 Overview (02/19/2024): -seen by Erica Gregory MD 01/2024 1. Left dorsal wrist ganglion On the dorsal radial aspect of her wrist Measuring 1.5cm in diameter, this is partially-deflated and soft to palpation -slowly decreasing in size in the last week -recommend she massage across this mass gently to see if this improves -If this does not improve we may consider surgery Bilateral hand numbness 02/19/2024 Overview (02/19/2024): -Seen by Dr. Erica Gregory 01/2024 for Bilateral hand numbness In the median nerve distribution Symptoms intermittent, but daily, primarily at night -NCS ordered by Dr. Gregory to assess for peripheral nerve compression She will follow up when completed for review Preventative health care 05/01/2023 Overview (05/01/2023): -next physical exam due after 12/2023. -eye care facilitated by -dental home is Palpitations 12/23/2022 Overview (05/01/2023): Seen by cardiology 02/2023. -EKG normal. -Echo and holter monitor order. -Number was given today to call 05/01/2023. Assessment & Plan (05/01/2023 11:00 AM EDT): Seen by cardiology 02/2023. -EKG normal. -Echo and holter monitor order. -Number was given today to call 05/01/2023. Assessment & Plan (12/23/2022 9:40 AM EST): Cardiology referral done 12/23/22. Chronic nonintractable headache 10/02/2022 Overview (12/20/2022): -Reporting headaches sine 10/2021. Exam non focal. -Seen once by me and twice by for migraine type headache. -Seen 08/2022 in ER for right eye droop with headache. CT unremarkable. -Headachess daily but get better and worse. At times gets week and feels she will pass out . Worse when lying down. Positive nausea, no vomiting. -Feels like spasms on right side like getting electrocuted lasting minutes. Can be severe. -No aura. -No recent eye exam. -Given positional worse with lying down, associated nausea, length of symptoms and episodic focal symptom of eye droop in past, will check MRI and labs. Assessment & Plan (12/20/2022 11:55 AM EST): -Reporting headaches sine 10/2021. Exam non focal. -Seen once by me and twice by for migraine type headache. -Seen 08/2022 in ER for right eye droop with headache. CT unremarkable. -Headachess daily but get better and worse. At times gets week and feels she will pass out . Worse when lying down. Positive nausea, no vomiting. -Feels like spasms on right side like getting electrocuted lasting minutes. Can be severe. -No aura. -No recent eye exam. -Given positional worse with lying down, associated nausea, length of symptoms and episodic focal symptom of eye droop in past, will check MRI and labs. Assessment & Plan (10/02/2022 12:52 PM EST): -Reporting headaches sine 10/2021. Exam non focal. -Seen once by me and twice by for migraine type headache. -Seen 08/2022 in ER for right eye droop with headache. CT unremarkable. -Headachess daily but get better and worse. At times gets week and feels she will pass out . Worse when lying down. Positive nausea, no vomiting. -Feels like spasms on right side like getting electrocuted lasting minutes. Can be severe. -No aura. -No recent eye exam. -Given positional worse with lying down, associated nausea, length of symptoms and episodic focal symptom of eye droop in past, will check MRI and labs. Midline low back pain 10/02/2022 Right tennis elbow 10/02/2022 Overview (10/02/2022): -Dx on exam 10/02/2022 -[place] of elbow brace Assessment & Plan (10/02/2022 12:50 PM EST): -Dx on exam 10/02/2022 -[place] of elbow brace Vitamin D deficiency 09/30/2022 Cobalamin deficiency 01/03/2022 Resolved Problems Problem Noted Date Diagnosed Date Resolved Date Strep pharyngitis 02/17/2023 05/01/2023 Overview (02/17/2023): -clinic picture highly suspicious for strep pharyngitis -formal culture sent to lab -amoxicillin 500mg bid for 10 days, can discontinue if strep send out is negative -droplet precautions discussed -supportive care discussed -ER precautions given Assessment & Plan (02/17/2023 10:51 AM EDT): -clinic picture highly suspicious for strep pharyngitis -formal culture sent to lab -amoxicillin 500mg bid for 10 days, can discontinue if strep send out is negative -droplet precautions discussed -supportive care discussed -ER precautions given Migraine 09/30/2022 10/02/2022 Encounters Date Type Department Care Team Description 12/09/2024 Orders Only [facility] External Provider, [facility] 12/09/2024 Telephone [facility] [address] [place] [address] Jazmín Quevedo MD Nurse Triage from Last 3 Months Immunizations Name Administration Dates Next Due DTaP 08/31/2013 Influenza injectable quadriv alent IIV4 with preservative 10/02/2022,07/13/2018,07/07/2017 Influenza injectable quadriv alent preservative free 09/26/2020,09/09/2019 Influenza, Split (incl. asha fied surface antigen) 08/02/2013,11/10/2012 MMR 10/17/2017 Pfizer Covid-19 Vaccine 12+ 03/02/2021, 1 TD (adult), 2 Lf tetanus tox oid, preservative free, adsorbed 06/22/2019 Tdap 10/01/2017,07/07/2017 Social History Tobacco Use Types Packs/Day Years Used Date Smoking Tobacco: Every Day Cigarettes Passive Smoke Exposure: Current Smokeless Tobacco: Never Tobacco Cessation:Ready to Q uit: Not Asked; Counseling Given: Not Answered Depression Answer Date Recorded Patient Health Questionnaire-9 Score 0 12/23/2022 Housing Stability Answer Date Recorded What is your housing situation today? I have mayda blevins 08/06/[address] you li ve. Do you have problems with any of the following? None of the above 08/06/2023 Food Insecurity Answer Date Recorded Within the past 12 months, y ou worried that your food would run out before you got money to buy more: Never True 08/06/2023 Within the past 12 months,th e food you bought just didn't last and you didn't have enough money to get more: Never True Transportation Answer Date Recorded In the past 12 months, has l ack of transportation kept you from medical appts, meetings, work or from getting things needed for daily living? No 08/06/2023 Utilities Answer Date Recorded In the past 12 months, has t he lark, gas, oil or water company threatened to shut off services in your home? No 08/06/2023 Depression Answer Date Recorded Patient Health Questionnaire-2 Score 0 12/23/2022 Comments Unknown Sex and Gender Information Value Date Recorded Sex Assigned at Female 08/19/2022 10:19 AM EDT Legal Sex Female 10:19 AM EDT Gender Identity Female 08/19/2022 10:19 AM EDT Sexual Orientation Choose not to disclose 2022 8:18 AM EST Sexual Orientation Straight 12/23/2022 8: 18 AM EST Last Filed Vital Signs Vital Sign Reading Time Taken Comments Blood Pressure 113/71 07/19/2024 6:52 PM EDT Pulse 86 07/19/2024 6:52 PM EDT Temperature 35.8 ??C (96.5 ??F) 07/19/2024 6:52 PM ED T Respiratory Rate 12 07/19/2024 6:52 PM EDT Oxygen Saturation 98% 07/19/2024 6:52 PM EDT Inhaled Oxygen Concentration - - Weight 94.7 kg (208 lb 12.8 oz) 07/19/2024 6:52 PM EDT Height 162.6 cm (5' 4 ) 07/19/2024 6:52 PM EDT Body Mass Index 35.84 07/19/2024 6:52 PM EDT Plan of Treatment Health Maintenance Due Date Last Done Comments Alcohol/Substance Use Screening 1995 Family Planning (PISQ) 1998 Hepatitis B Vaccines (1 of 3 - 19+ 3-dose series) 2002 Pneumococcal Vaccine: Pediatrics (0 to 5 Years) and At-Risk Patients (6 to 49) Years) (1 of 2 - PCV) 2002 Depression Screening 12/24/2023 12/23/2022, 12/24/19 SDOH Screening 12/24/2023 12/23/2022 COVID-19 Vaccine ( season) 2024 03/02/2021, 02/09/2021 Influenza Vaccine (#1) 2024 , 09/26/2020, 09/09/2019, Additional history exists Diagnostic Breast Imaging 12/25/2024 12/26/2023, Tobacco Screening 02/03/2025 02/04/2024 Lipid Panel 10/02/2027 10/02/2022 Cervical Cancer Screening 12/24/2027 HPV/Cotest 12/24/2027 12/23/2022, 11/26/2017 Pap Smear 12/24/2027 12/23/2022, 11/26/2017 DTaP/Tdap/Td Vaccines (6 - Td or Tdap) 06/22/2029 06/22/2019, 10/01/2017, 07/07/2017, Additional history exists Zoster Vaccines (1 of 2) 2033 RSV Patients and Patients Aged 60 years or older (1 - 1-dose 75+ series) 2058 HIV Screening Completed 10/02/2022, 06/30/2020 Hepatitis C Screening Completed 10/02/2022 , 09/19/2022, 06/30/2020 HIB Vaccines Aged Out No longer eligi ble based on patient's age to complete this topic HPV Vaccines Aged Out No longer eligi ble based on patient's age to complete this topic Hepatitis A Vaccines Aged Out No long er eligible based on patient's age to complete this topic IPV Vaccines Aged Out No longer eligi ble based on patient's age to complete this topic Meningococcal Vaccine Aged Out No marcy vivien eligible based on patient's age to complete this topic RSV under 20 months Aged Out No longe r eligible based on patient's age to complete this topic Rotavirus Vaccines Aged Out No longer eligible based on patient's age to complete this topic Procedures Procedure Name Priority Date/Time Associated Diagnosis Comments XR LUMBAR SPINE 2-3 VIEWS Routine 12/09/2024 1:16 PM EST BI MAMMOGRAM DIAGNOSTIC TOMOSYNTHESIS RIGHT Routine 12/26/2023 1:15 PM EST THINPREP PAP, HPV MRNA E6/E7 RFX HPV 16,18/45, CHLAMYDIA/N.GONORRHOEA E Routine 12/23/2022 9:47 AM EST Pap smear for cervical cancer screening HEPATITIS C VIRAL RNA, QUANTITATIVE, REAL-TIME PCR Routine 10/02/2022 10:24 AM EST Chronic intractable headache, unspecified headache type HIV 1/2 ANTIGEN/ANTIBODY, FOURTH GENERATION W/RFL Routine 10/02/2022 10:24 AM EST Chronic intractable headache, unspecified headache type LIPID PANEL, STANDARD Routine 10/02/2022 10:24 AM EST Chronic intractable headache, unspecified headache type from Last 3 Months or Most Recently Relevant to Health Maintenance Results * XR Lumbar Spine 2-3 Views (12/09/2024 1:16 PM EST) Anatomical Region Laterality Modality Spine, L-spine Radiographic Heather ging 12/09/2024 1:16 PM EST Narrative 12/09/2024 1:40 PM EST ? [facility] ?[address] ?[place] [address] ?XRay Report ? Signed ? Patient: Minal Rodriguez ?MR#: [id number] ?? 32 ? : 1985 ?Acct:[id number] ? Age/Sex: 39 / F ?ADM Date: 12/09/24 ? Loc: HO.ED ? Attending Dr: ? Ordering Physician: Kadi Hernandez DIMENSIONAL INTEGRATION ENGINEER ?? Date of Service: 12/09/24 ?? Procedure(s): XR lumbar spine 2-3V ?? Accession Number(s): [id number] ? cc: Jazmín Quevedo MD; Kadi Hernandez NP ? EXAMINATION: ?? XR LUMBOSACRAL SPINE ? CLINICAL INFORMATION: ?? pain after lifting ? COMPARISON: ?? None available. ? TECHNIQUE: ?? Three views of the lumbosacral spine. ? FINDINGS: ?? There is a prominent right transverse process of L5 joining the right ?? S1 with the sclerosis and the articular surface. ?? The last rib-bearing vertebra labeled T12 suggesting Castellvi type I ?? sacralization. ?? Endplate sclerosis and decreased intervertebral disc height at L5-S1. ?? No acute cortical disruption or gross malalignment. No lytic or blastic ?? lesions. ? XR/XR lumbar spine 2-3V ?? IMPRESSION: ?? Consider Bertolotti syndrome, right-sided. ? Electronically signed by: ??Grupo Garzon MD ??12/09/2024 01:37 PM ?? EST RP ? Dictated By: ?Grupo Watson MD ? Signed By: ?<Electronically signed by Grupo Clemens MD in OV> ? 12/09/24 1337 ? DD/ 1316 ? TD/TT: 12/09/24 1330 ? Tourist Guide: ? Procedure Note Tonie, Faith - 12/09/2024 [place] [address] XRay Report Signed Patient: Trinidad Rodriguez#: [id number] 32 : 1985Acct:[id number] Age/Sex: 39 / FADM Date: 12/09/24 Loc: HO.ED Attending Dr: Ordering Physician: Kadi Hernandez NP Date of Service: 12/09/24 Procedure(s): XR lumbar spine 2-3V Accession Number(s): [id number] cc: Jazmín Quevedo MD; Kadi Hernandez NP EXAMINATION: XR LUMBOSACRAL SPINE CLINICAL INFORMATION: pain after lifting COMPARISON: None available. TECHNIQUE: Three views of the lumbosacral spine. FINDINGS: There is a prominent right transverse process of L5 joining the right S1 with the sclerosis and the articular surface. The last rib-bearing vertebra labeled T12 suggesting Castellvi type I sacralization. Endplate sclerosis and decreased intervertebral disc height at L5-S1. No acute cortical disruption or gross malalignment. No lytic or blastic lesions. XR/XR lumbar spine 2-3V IMPRESSION: Consider Bertolotti syndrome, right-sided. Electronically signed by: Grupo Garzon MD 12/09/2024 01:37 PM EST RP Dictated By: Grupo Watson MD Signed By: <Electronically signed by Grupo Clemens MDin OV> 12/09/24 1337 DD/ 1316 TD/TT: 12/09/24 1330 Tourist Guide: [facility] External Provider IMG XR PROCEDURES Final Result * BI Mammogram Diagnostic Tomosynthesis Right (12/26/2023 1:15 PM EST) Anatomical Region Laterality Modality Breast Right Mammography 12/26/2023 1:15 PM EST Narrative 12/26/2023 1:52 PM EST ? [facility] ? [address] ?[place] [address] ? Mammography Report ? Signed with Addenda ? Patient: Perri Rodriguezn ?MR#: [id number] ?? 32 ? : 1985 ?Acct:[id number] ? Age/Sex: 38 / F ?ADM Date: 03/08/24 ? Loc: HO.MAMMO ? Attending Dr: Jazmín Quevedo MD ? Ordering Physician: Sae,Jazmín MD ? Results: 3.12MProbably Benign Finding - 12 month F/U ?? Suggested ? Date of Service: 12/26/23 ?Follow Up: 12 month diagnos ?? tic follow up ? Procedure(s): MM tomosynthesis diagnostic RT ?? Accession Number(s): [id number] ? cc: Jazmín Quevedo MD ?ADDENDUM ?? ADDENDUM: ?? Typographical follow-up error in the original report. Corrected is ?? below: ? OVERALL ASSESSMENT: ?? BI-RADS 3 - Probably benign finding(s) - 12 month follow-up suggested ? RECOMMENDATION: ?? 12 month diagnostic follow up ? Results were provided to the patient at time of visit by the ?? technologist. ? This patient's information was entered into a reminder system with a ?? target due date for their next mammogram. ? Addendum Dictated By: ?Torrey Rios MD ? Addendum Signed By: ? <Electronically signed by Torrey Rios MD in OV> ?12/29/23 0825 ?? Addendum Cosigned By: ? DD/ /12/1300 ? TD/TT: / ? EXAMINATION: ?? MM DIAGNOSTIC DIGITAL BREAST TOMOSYNTHESIS, RIGHT ? CLINICAL INFORMATION: ? 6 month Follow-up for focal 6 mm oval probably benign asymmetry seen ?? right breast lower inner quadrant, middle one third. Previously no ?? ultrasound correlate. ? COMPARISON: ?? Mammography: 07/02/2023, 06/11/2023 (BI-RADS 0). ?? Right breast ultrasound 07/02/2023. ? TECHNIQUE: ?? Digital right breast tomosynthesis is performed in both the ?? craniocaudal and mediolateral oblique views along with computer-aided ?? detection (CAD). Synthesized 2D images are generated from the ?? tomosynthesis. In addition, full-field 3-D right 90 degree ML view was ?? also included. ? FINDINGS: ?? There are scattered areas of fibroglandular density (ACR BI-RADS breast ?? composition Category b). ? There is been no significant change in the focal asymmetry right breast ?? slightly lower inner quadrant, middle one third, measuring 7 mm in ?? diameter. This has benign features and is unchanged, measuring 6 mm in ?? diameter. Previously no ultrasound correlate could be identified on ?? targeted right breast ultrasound. This remains probably benign, and may ?? be related to an intramammary lymph node or summation artifact. ?? Additional six-month interval follow-up recommended when the patient is ?? due for bilateral screening. ? No skin or axillary abnormality. No new suspicious abnormalities in the ?? right breast. Nipple barbell again noted. ? MM/MM tomosynthesis diagnostic RT ?? IMPRESSION: ?? No findings suspicious for malignancy right breast. ? Stable probably benign focal asymmetry lower inner quadrant right ?? breast, middle one third, unchanged. Recommend six-month interval ?? follow-up when the patient is due for bilateral screening to establish ?? one-year stability. At that time, if persistent, Second Look ultrasound ?? may be of benefit. ? ASSESSMENT: ? BI-RADS BI-RADS 3 - Probably benign finding(s) - 12 month follow-up ?? suggested ? RECOMMENDATION: ?? 6 Month F/U ? Results were provided to the patient at time of visit by the ?? technologist. ? This patient's information was entered into a reminder system with a ?? target due date for their next mammogram. ? Dictated By: ?Torrey Rios MD ? Signed By: ?<Electronically signed by Torrey Rios MD in OV> ?12/26/23 1348 ? DD/ 1315 ? TD/TT: ? Tourist Guide: ? Procedure Note Tonie, Image - 12/29/2023 [facility] [address] [place] [address] [place] [address] Mammography Report Signed with Glenn Patient: Perri RodriguezElíasR#: [id number] 32 : 1985Acct:[id number] Age/Sex: 38 / FADM Date: 12/26/23 Loc: HO.MAMMO Attending Dr: Jazmín Quevedo MD Ordering Physician: Jazmín Quevedo MD Results: 3.12MProbably Benign Finding - 12 month F/U Suggested Date of Service: 12/26/23Follow Up: 12 month diagnos tic follow up Procedure(s): MM tomosynthesis diagnostic RT Accession Number(s): [id number] cc: Jazmín Quevedo MD ADDENDUM ADDENDUM: Typographical follow-up error in the original report. Corrected is below: OVERALL ASSESSMENT: BI-RADS 3 - Probably benign finding(s) - 12 month follow-up suggested RECOMMENDATION: 12 month diagnostic follow up Results were provided to the patient at time of visit by the technologist. This patient's information was entered into a reminder system with a target due date for their next mammogram. Addendum Dictated By: Torrey Rios MD Addendum Signed By: <Electronically signed by Torrey Rios MD in OV> 12/29/23824 Addendum Cosigned By: DD/ /12/1300 TD/TT: / EXAMINATION: MM DIAGNOSTIC DIGITAL BREAST TOMOSYNTHESIS, RIGHT CLINICAL INFORMATION: 6 month Follow-up for focal 6 mm oval probably benign asymmetry seen right breast lower inner quadrant, middle one third. Previously no ultrasound correlate. COMPARISON: Mammography: 07/02/2023, 06/11/2023 (BI-RADS 0). Right breast ultrasound 07/02/2023. TECHNIQUE: Digital right breast tomosynthesis is performed in both the craniocaudal and mediolateral oblique views along with computer-aided detection (CAD). Synthesized 2D images are generated from the tomosynthesis. In addition, full-field 3-D right 90 degree ML view was also included. FINDINGS: There are scattered areas of fibroglandular density (ACR BI-RADS breast composition Category b). There is been no significant change in the focal asymmetry right breast slightly lower inner quadrant, middle one third, measuring 7 mm in diameter. This has benign features and is unchanged, measuring 6 mm in diameter. Previously no ultrasound correlate could be identified on targeted right breast ultrasound. This remains probably benign, and may be related to an intramammary lymph node or summation artifact. Additional six-month interval follow-up recommended when the patient is due for bilateral screening. No skin or axillary abnormality. No new suspicious abnormalities in the right breast. Nipple barbell again noted. MM/MM tomosynthesis diagnostic RT IMPRESSION: No findings suspicious for malignancy right breast. Stable probably benign focal asymmetry lower inner quadrant right breast, middle one third, unchanged. Recommend six-month interval follow-up when the patient is due for bilateral screening to establish one-year stability. At that time, if persistent, Second Look ultrasound may be of benefit. ASSESSMENT: BI-RADS BI-RADS 3 - Probably benign finding(s) - 12 month follow-up suggested RECOMMENDATION: 6 Month F/U Results were provided to the patient at time of visit by the technologist. This patient's information was entered into a reminder system with a target due date for their next mammogram. Dictated By: Torrey Rios MD Signed By: <Electronically signed by Torrey Rios MD in OV> 12/26/23 1348 DD/ 1315 TD/TT: Tourist Guide: Jazmín Quevedo MD IMG BI PROCEDURES Edited R esult - Final * Thinprep PAP, HPV mRNA E6/E7 RFX HPV 16,18/45, Chlamydia/N. Gonorrhoeae (12/23/2022 9:47 AM EST) Clinical Information: NO HX ABNORMAL PAPS [facility] LMP: NONE GIVEN [facility] Prev. PAP: NONE GIVEN Univat Prev. BX: NO Tapvalue Diagnost SOURCE: None given Univat Statement Of Adequacy: Client Outlook Comment: Satisfactory for evaluation. Endocervical/transformation zone component present. Interpretation/Re sult: Negative for intraepithelial lesion or malignancy. [facility] [employer] Plant Grinder: [facility] [employer] Comment: RXB, CT(ASCP) CT screening location: [address] ??[address] (Always Message) [facility] Comment: EXPLANATORY NOTE: The Pap is a screening test for cervical cancer. It is not a diagnostic test and is subject to false negative and false positive results. It is most reliable when a satisfactory sample, regularly obtained, is submitted with relevant clinical findings and history, and when the Pap result is evaluated along with historic and current clinical information. HPV nRNA E6/E7 Not Detected Not Detected Client Outlook Comment: Methodology: Knee Bolter-Mediated Amplification This assay detects E6/E7 viral messenger RNA (mRNA) from 14 high-risk HPV types (16,18,31,33,35,39,45,51,52,56,58,59,66,68). Cervical sources are required for HPV testing. If a vaginal source from a patient who has had a total hysterectomy with removal of cervix was submitted, please contact the testing laboratory for alternative testing options. For additional information, please refer to http://[employer].Moodswing/faq/WHQ895t2 (This link if provided for information/ educational purposes only.) Chlamydia trachomatis RNA, TMA, Urogenital NOT DETECTED NOT DETECTED Client Outlook Neisseria gonorrhoeae RNA, TMA, Urogenital NOT DETECTED NOT DETECTED Client Outlook (Always Message) [facility] Comment: The analytical performance characteristics of this assay, when used to test SurePath(TM) specimens have been determined by [employer]. The modifications have not been cleared or approved by the FDA. This assay has been validated pursuant to the CLIA regulations and is used for clinical purposes. For additional information, please refer to https://[employer].Moodswing/faq/VGP856 (This link is being provided for information/ educational purposes only.) Cytology specimen container (physical object) 12/23/2022 9:47 AM EST 12/24/2022 10:14 AM EST Jazmín Quevedo MD LAB PATHOLOGY ORDERABLES F inal Result [facility] [address] [facility], [place] [address] Client Outlook [address] [facility], ([address]) [place] [address] * Hepatitis C Viral RNA, Quantitative, Real-Time PC (10/02/2022 10:24 AM EST) HCV RNA, QN Real Time PCR <15 NOT DETECTED NOT DETECTED IU/mL Client Outlook HCV RNA QN Real Time PCR <1.18 NOT DETECTED NOT DETECTED Log IU/mL Univat Comment: This test was performed using Real-Time Polymerase Chain Reaction. Reportable Range: 15 IU/mL to 100,000,000 IU/mL (1.18 Log IU/mL to 8.00 Log IU/mL). ?? The analytical performance characteristics of this assay have been determined by [employer]. The modifications have not been cleared or approved by the FDA. This assay has been validated pursuant to the CLIA regulations and is used for clinical purposes. ?? For more information on this test, go to: http://[employer].Moodswing/faq/IKB94n5 (This link is being provided for informational/ educational purposes only.) 10/02/2022 10:2 4 AM EST 10/02/2022 10:25 AM EST Narrative [facility] - 10/05/2022 2:27 PM EST FASTING:YES FASTING: YES Jazmín Quevedo MD LAB BLOOD ORDERABLES Final Result [facility] [address] [facility], [facility], [place] [address] [facility] [place] [employer] [address] [facility], ([address]) [place] [address] * HIV-1/2 Antigen and Antibodies, Fourth Generation, with Reflexes (10/02/2022 10:24 AM EST) HIV Antigen/Antibody, 4th Generation NON-REAC TIVE NON-REAC TIVE [facility] [place] [employer] Comment: HIV-1 antigen and HIV-1/HIV-2 antibodies were not detected. There is no laboratory evidence of HIV infection. PLEASE NOTE: This information has been disclosed to you from records whose confidentiality may be protected by state law. ??If your state requires such protection, then the state law prohibits you from making any further disclosure of the information without the specific written consent of the person to whom it pertains, or as otherwise permitted by law. A general authorization for the release of medical or other information is NOT sufficient for this purpose. ?? For additional information please refer to http://education.Moodswing/faq/HAB333 (This link is being provided for informational/ educational purposes only.) The performance of this assay has not been clinically validated in patients less than 2 years old. Blood Venous blood specimen / Unknown 10/02/2022 10:24 AM EST 10/02/2022 10:25 AM EST Narrative [facility] - 10/05/2022 2:27 PM EST FASTING:YES FASTING: YES Jazmín Quevedo MD LAB BLOOD ORDERABLES Final Result [facility] [address] [facility], [facility], [place] [address] [facility] [place] [facility] [address] [facility], ([address]) [place] [address] * (ABNORMAL) Lipid Panel, Standard (10/02/2022 10:24 AM EST) Cholesterol, Total 173 <200 mg/dL [facility] [place] [facility] HDL Cholesterol 52 > OR = 50 mg/dL [facility] [place] [facility] Triglycerides 57 <150 mg/dL [facility] [place] [facility] LDL Cholesterol 107(H) mg/dL (calc) [facility] [place] [facility] Comment: Reference range: <100 Desirable range <100 mg/dL for primary prevention; ?? <70 mg/dL for patients with CHD or diabetic patients with > or = 2 CHD risk factors. LDL-C is now calculated using the Kenrick-Dawit calculation, which is a validated novel method providing better accuracy than the Friedewald equation in the estimation of LDL-C. Kenrick GARCIA et al. CAYETANO. 2013;310(19): 8927-1886 (http://education.Ischemix/faq/IOM008) Chol/HDLC Ratio 3.3 <5.0 (calc) [facility] Non-HDL Cholesterol 121 <130 mg/dL (calc) Client Outlook Comment: For patients with diabetes plus 1 major ASCVD risk factor, treating to a non-HDL-C goal of <100 mg/dL (LDL-C of <70 mg/dL) is considered a therapeutic option. Blood Venous blood specimen / Unknown 10/02/2022 10:24 AM EST 10/02/2022 10:25 AM EST Narrative [facility] - 10/05/2022 2:27 PM EST FASTING:YES FASTING: YES Jazmín Quevedo MD LAB BLOOD ORDERABLES Final Result [facility] [address] [facility], 3rd [address], [place] [address] [facility] [address] [facility], ([address]) [place] [address] from Last 3 Months or Most Recently Relevant to Health Maintenance [facility] Care Teams Gang Leader Relationship Specialty Start Date End Date Jazmín Quevedo MD [address] [place] [id number] PCP - General Family Medicine 10/20/18
--- OUTSIDE RECORDS SUMMARY | 2024-12-09 20:33 | XMS_ITS | Encounter Summary ---
Author Organization [employer] Address [address] [place] [address] Care Team Providers Care Radiologic Technologist Chief Name Role Phone Jazmín Quevedo MD Primary Care Provider +1- [phone] Encounter Details Date Type Department Care Team (Late st Contact Info) Description 12/09/2024 Orders Only [facility] External Provider, [facility] Social History Tobacco Use Types Packs/Day Years Used Date Smoking Tobacco: Every Day Cigarettes Passive Smoke Exposure: Current Smokeless Tobacco: Never Depression Answer Date Recorded Patient Health Questionnaire-9 Score 0 12/23/2022 Housing Stability Answer Date Recorded What is your housing situation today? I have maydamichelle blevins 08/06/[address] you [...] the past 12 months, has t he electric, gas, oil or water company threatened to [...] Orientation Straight 12/23/2022 8: 18 AM EST documented as of this encounter Plan of Treatment Not on file documented as of this encounter Procedures Procedure Name Priority Date/Time Associated Diagnosis Comments XR LUMBAR SPINE 2-3 VIEWS Routine 12/09/2024 1:16 PM EST documented in this encounter Results * XR Lumbar Spine 2-3 Views (12/09/2024 1:16 PM EST) Anatomical Region Laterality Modality Spine, L-spine Radiographic Heather ging 12/09/2024 1:16 PM EST Narrative 12/09/2024 1:40 PM EST ? [facility] ?[address] ?[place] [address] ?XRay Report ? Signed ? Patient: Rodriguez,Minal ?MR#: [id number] ?? 32 ? : 1985 ?Acct:[id number] ? Age/Sex: 39 / F ?ADM Date: 12/09/24 ? Loc: HO.ED ? Attending Dr: ? Ordering Physician: Kadi Hernandez NP ?? Date of Service: 12/09/24 ?? Procedure(s): XR lumbar spine 2-3V ?? Accession Number(s): [id number] ? cc: Jazmín Quevedo MD; Kadi Hernandez [...] DD/ 1316 ? TD/TT: 12/09/24 1330 ? Ware Cleaner: ? Procedure Note Donotuseinterpreter, Image - 12/09/[address] [address] XRay Report Signed Patient: Trinidad Rodriguez#: [id number] 32 : 1985Acct:[id number] Age/Sex: 39 / FADM Date: 12/09/24 Loc: HO.ED Attending Dr: Ordering Physician: Kadi Hernandez NP Date of Service: 12/09/24 Procedure(s): XR lumbar spine 2-3V Accession Number(s): [id number] cc: Jazmín Quevedo MD; Kadi Hernandez NP [...] Grupo Garzon MD 12/09/2024 01:37 PM EST Dictated By: Grupo Watson MD Signed By: <Electronically signed by Grupo Clemens MDin OV> 12/09/24 1337 DD/ 1316 TD/TT: 12/09/24 1330 Ware Cleaner: [facility] External Provider IMG XR PROCEDURES Final Result documented in this encounter Visit Diagnoses Not on filedocumented in this encounter Additional Health Concerns Assessment Noted Time PHQ-9 Depression Total Score: 0 12/24/19 23 9:04 AM EST documented as of this encounter Care Teams Radiologic Technologist Chief Relationship Specialty Start Date End Date Jazmín Quevedo MD [address] [place] [address] PCP - General Family Medicine 10/20/18 documented as of this encounter
--- OUTSIDE RECORDS SUMMARY | 2024-12-09 20:33 | XMS_ITS | Encounter Summary ---
Author Organization [employer] Address [address] [facility] [address] [place] [address] Care Team Providers Care Taxicab Starter Name Role Phone Jazmín Quevedo MD Primary Care Provider +1- [phone] Reason for Visit * Reason Comments Med Refill Encounter Details Date Type Department Care Team ([facility] st Contact Info) Description 04/15/[address] [facility] MEDICINE [address] [place], [place] [phone] Jazmín Quevedo MD [address] [place], [place] [phone] Social History Tobacco Use Types Packs/Day Years Used Date Smoking Tobacco: Every Day Cigarettes Smokeless Tobacco: Never Depression Answer Date Recorded Patient Health Questionnaire-9 Score 0 12/23/2022 Depression Answer Date Recorded Patient Health Questionnaire-2 [...] on file documented as of this encounter Visit Diagnoses Not on filedocumented in this encounter Additional Health Concerns Assessment Noted Time PHQ-9 Depression Total Score: 0 12/24/19 9:04 AM EST documented as of this encounter Care Teams Taxicab Starter Relationship Specialty Start Date End Date Jazmín Quevedo MD [address] [place] [address] PCP - General Family Medicine 10/20/18 documented as of this encounter
--- OUTSIDE RECORDS SUMMARY | 2024-12-09 20:33 | XMS_ITS | Encounter Summary ---
Author Organization [employer] Address [address] [place] [address] Care Team Providers Care Retail Sales Manager Name Role Phone Jazmín Quevedo MD Primary Care Provider +1- [phone] Reason for Visit * Reason Onset Date Comments Nurse Triage 12/09/2024 Encounter Details Date Type Department Care Team ([facility] st Contact Info) Description 12/09/2024 Telephone [facility] MEDICINE [address] [place], [place] [phone] Jazmín Quevedo MD [address] [place], [place] [phone] Nurse Triage Social History Tobacco Use Types Packs/Day Years [...] AM EST documented as of this encounter Miscellaneous Notes * Telephone Encounter - Jordana Condon RN - 12/09/2024 9:04 AM EST Call returned to [facility] to triage below. Reports having possible lifting injury to lower back 2 days ago. Pain states right leg having intermittent leg numbness. Pt has been using Motrin OTC PRN with mild relief. Pain with ambulation. NO heat/ice compresses. Pt advised of disptioin, no Sickon site today or tomorrow. Advised of disposition, agrees to seek [facility] for exam as no sick on site availability on teams at time of call. Reviewed [facility] operating hours and that wait times vary. Reviewed home care advise, ER precautions and reasons to call back. Protocol Used: Back Injury (Adult) Protocol-Based Disposition: Go to Office or Video Visit Now Video visit offer not recorded Positive Triage Question: * Pain radiates into the thigh or further down the leg now * All higher-acuity triage questions were negative Care Advice Discussed: * Reassurance and Education - Bending or Twisting Injury (Strain, Sprain) * Use Heat on Area After 48 Hours * Avoid Heavy Lifting and Sports * Rest vs. Movement * Reasons To Call Back - You become worse documented in this encounter Plan of Treatment Not on file documented as of this encounter Visit Diagnoses Not on filedocumented in this encounter Additional Health Concerns Assessment Noted Time PHQ-9 Depression Total Score: 0 12/24/19 23 9:04 AM EST documented as of this encounter Care Teams Retail Sales Manager Relationship Specialty Start Date End Date Jazmín Quevedo MD [address] [place] [phone] PCP - General Family Medicine 10/20/18 documented as of this encounter
[2024-12-09 20:37] VITALS: BP 126/74; PULSE 62; RESP 16; TEMP 37.1; O2SAT 99
== END 2024-12-09 20:38 | disposition home or self-care (01) ==
PROVIDERS: Emergency Provider Internal Medicine; PCP Family Medicine
DX: M54.50 Low back pain, unspecified (principal); F17.210 Nicotine dependence, cigarettes, uncomplicated; Z79.899 Other long term (current) drug therapy
CPT/HCPCS: 72100; 96372; 99283; 99284; J1885

== ENCOUNTER → 2024-12-09 13:16 | Outpatient (BNV) | payer SELFPAY | PROVIDERS: PCP Family Medicine; Visit Provider Radiology Diagnostic Radiology | DX: M54.50 Low back pain, unspecified (principal) | CPT/HCPCS: 72100 ==

== ENCOUNTER 2025-03-01 12:21 | Outpatient (REF) | payer MEDICAID, SELFPAY ==
--- NOTE | ~2025-03-01 | XR_ITS ---
CLINICAL HISTORY: atraumatic right posterior chest pain 2 view chest x-ray Comparison: None Findings: No consolidation or effusion. Heart size is normal. No acute fracture. IMPRESSION: 1. No acute findings. This document has been electronically signed by: Genaro Sanford MD on 03/01/2025 16:00:15
[2025-03-01 13:16] LABS: D Dimer High Sensitivity 234 NG/ML
--- OUTSIDE RECORDS SUMMARY | 2025-03-01 13:28 | XMS_ITS | Clinical Summary ---
Author Organization [employer] Address [address] [facility] 7t [place] [address] Care Team Providers Care Shipwright Apprentice Name Role Phone Jazmín Quevedo MD Primary Care Provider +1- [phone] Allergies No known active allergies Medications SUMAtriptan [...] for muscle spasms. 90 tablet 07/19/2024 Active cefpodoxime (Vantin) 200 MG tablet Take 1 tablet (200 mg) by mouth 2 times daily for 7 days. 14 tablet 03/01/2025 03/08/20 25 Active Active Problems Problem Noted Date Diagnosed Date Tobacco dependence 03/01/2025 Posterior chest pain 03/01/2025 Acute midline low back pain without sciatica Overview (12/10/2024): -seen in ER 12/09/24 X ray There is a prominent right transverse process of L5 joining the right S1 with the sclerosis and the articular surface. The last rib-bearing vertebra labeled T12 suggesting Castellvi type I sacralization. Endplate sclerosis and decreased intervertebral disc height at L5-S1. No acute cortical disruption or gross malalignment. No lytic or blastic lesions. Consider Bertolotti syndrome, right-sided. Ganglion cyst 02/19/2024 Overview (02/19/2024): -seen by [...] for review Preventative health care 05/01/2023 Overview (12/28/2024): -next physical exam due after 12/2023 -eye care facilitated by -dental home is -health care proxy Palpitations 12/23/2022 Overview (05/01/2023): Seen by cardiology [...] 10/02/2022 Overview (10/02/2022): -Dx on exam 10/02/2022 -[place] of elbow brace Assessment & Plan (10/02/2022 12:50 PM EST): -Dx on exam 10/02/2022 -[place] of elbow brace Vitamin D deficiency [...] Encounters Date Type Department Care Team Description 03/01/2025 10:40 AM EDT Office Visit [facility] [address] [place] [phone] Right flank pain (Primary Dx); Posterior chest pain; Chronic right-sided low back pain with right-sided sciatica 01/07/2025 Telephone [facility] [address] [place] [address] Jazmín Quevedo MD mammography appoinment 12/09/2024 Orders Only [facility] External Provider, [facility] Acute midline low back pain without sciatica (Primary Dx) 12/09/2024 Telephone [facility] [address] [place] [address] Jazmín Quevedo MD Nurse Triage [...] Sign Reading Time Taken Comments Blood Pressure 127/77 03/01/2025 10:39 AM EDT Pulse 85 03/01/2025 10:39 AM EDT Temperature 36.7 ??C (98.1 ??F) 03/01/2025 1 0:39 AM EDT Respiratory Rate 16 03/01/2025 10:3 9 AM EDT Oxygen Saturation 98% 03/01/2025 10: 39 AM EDT Inhaled Oxygen Concentration - - Weight 91.1 kg (200 lb 12.8 oz) 025 10:39 AM EDT Height 162.6 cm (5' 4 ) 07/19/2024 6:52 PM EDT Body Mass Index 34.47 07/19/2024 6:52 PM EDT Plan of Treatment Health Maintenance Due Date Last Done Comments Alcohol/Substance Use Screening 1995 Family Planning (PISQ) 1998 Hepatitis B Vaccines (1 of 3 - 19+ 3-dose series) 2002 Pneumococcal Vaccine: Pediatrics (0 to 5 Years) and At-Risk Patients (6 to 49) Years) (1 of 2 - PCV) 2002 Depression Screening 12/24/2023 12/23/2022, 12/24/19 23 SDOH Screening 12/24/2023 12/23/2022 COVID-19 Vaccine ( season) 2024 03/02/2021, 02/09/2021 Influenza Vaccine (#1) 2024 , 09/26/2020, 09/09/2019, Additional history exists Diagnostic Breast Imaging 12/25/2024 12/26/2023, Mammogram 01/17/2025 12/26/2023, 06/20, 06/11/2023 Tobacco Screening 03/01/2026 03/01/2025 Lipid Panel 10/02/2027 10/02/2022 Cervical Cancer Screening [...] Procedure Name Priority Date/Time Associated Diagnosis Comments POCT URINALYSIS DIPSTICK Routine 03/01/2025 1:13 PM EDT Posterior chest pain D DIMER HIGH SENSITIVITY Routine 03/01/2025 12:38 PM EDT Acute midline low back pain without sciatica XR LUMBAR SPINE 2-3 VIEWS Routine 12/09/2024 [...] Recently Relevant to Health Maintenance Results * (ABNORMAL) POCT urinalysis dipstick manually resulted (03/01/2025 1:13 PM EDT) Color, UA Yellow Clarity, UA Clear Glucose, UA Negative Bilirubin, UA Negative Ketones, UA Negative Spec Grav, UA 1.020 Blood, UA Positive(A) Negative, None Detected Comment:moderate pH, UA 6.0 Protein, UA Few 15 Comment:30 mg/dL Urobilinogen, UA 0.2 Leukocytes, UA Moderate(A) Negative, Rare, Trace Nitrite, UA Positive(A) Negative, None Detected Urine 03/01/2025 1:13 PM EDT us Yeison Erwin MD POINT OF CARE TEST ENTER/EDIT OR DERABLES Final Result * D Dimer High Sensitivity (03/01/2025 12:38 PM EDT) Pathologist [facility] D Dimer High Sensitivity 234 NG/ML [facility] Comment:D-DIMER HS REFERENCE RANGENote: Our assay reports D-Dimer Units (D- DU).The cut-off value for venous thromboembolic (VTE) disease is230 ng/mL. This value has a very high negative predictivevalue when the patient has a low to moderate clinicalprobability of VTE.The upper limit of normal is 243 ng/mL. 03/01/2025 12:3 8 PM EDT 03/01/2025 12:38 PM EDT us Yeison Erwin MD LAB BLOOD ORDERABLES Final Resul t [facility] [address] [place] [address] [phone] * XR Lumbar Spine 2-3 Views (12/09/2024 1:16 PM EST) Anatomical Region Laterality Modality Spine, L-spine Radiographic Heather ging 12/09/2024 1:16 PM EST Narrative 12/09/2024 1:40 PM EST ? [facility] ?[address] ?[place] [address] ?XRay Report ? Signed ? Patient: Minal Rodriguez ?MR#: [id number] ?? 32 ? : 1985 ?Acct:[id number] ? Age/Sex: 39 / F ?ADM Date: 12/09/24 ? Loc: HO.ED ? Attending Dr: ? Ordering Physician: Kadi Hernandez NP ?? Date of Service: 12/09/24 ?? Procedure(s): XR lumbar spine 2-3V ?? Accession Number(s): [id number] ? cc: Jazmín Quevedo MD; Kadi Hernandez [...] DD/ 1316 ? TD/TT: 12/09/24 1330 ? Wardrobe Technician: ? Procedure Note Donotuseinterpreter, Image - 12/09/[address] [address] XRay Report Signed Patient: Trinidad Rodriguez#: [id number] 32 : 1985Acct:[id number] Age/Sex: 39 / FADM Date: 12/09/24 Loc: HO.ED Attending Dr: Ordering Physician: Kadi Hernandez NP Date of Service: 12/09/24 Procedure(s): XR lumbar spine 2-3V Accession Number(s): [id number] cc: Jazmín Quevedo MD; Kadi Hernandez NP [...] 12/09/24 1337 DD/ 1316 TD/TT: 12/09/24 1330 Wardrobe Technician: [facility] External Provider IMG XR PROCEDURES Final Result * BI Mammogram Diagnostic Tomosynthesis Right (12/26/2023 1:15 PM EST) Anatomical Region Laterality Modality Breast Right Mammography 12/26/2023 1:15 PM EST Narrative 12/26/2023 1:52 PM EST ? [facility] ? [address] ?[place] [address] ? Mammography Report ? Signed with Addenda ? Patient: Rodriguez,Minal ?MR#: [id number] ?? 32 ? : 1985 ?Acct:[id number] ? Age/Sex: 38 / F ?ADM Date: 12/26/23 ? Loc: HO.MAMMO ? Attending Dr: Jazmín Quevedo MD ? Ordering Physician: Jazmín Quevedo MD ? Results: 3.12MProbably Benign Finding - 12 month F/U ?? Suggested ? Date of Service: 12/26/23 ?Follow Up: 12 month diagnos ?? tic follow up ? Procedure(s): MM tomosynthesis diagnostic RT ?? Accession Number(s): [id number] ? cc: Jazmín Quevedo MD ?ADDENDUM ?? [...] signed by Torrey Rios MD in OV> ?03/11/24 0825 ?? Addendum Cosigned By: ? DD/ [...] 1348 ? DD/ 1315 ? TD/TT: ? Wardrobe Technician: ? Procedure Note Donjoselulúalejoter, Image - 12/29/2023 [facility] [address] [place], [place] [address] Mammography Report Signed with Addenda Patient: Perri RodrigueznMWashington#: [id number] 32 : 1985Acct:[id number] Age/Sex: 38 / FADM Date: 12/26/23 Loc: HO.MAMMO Attending Dr: Jazmín Quevedo MD Ordering Physician: Jazmín Quevedo MD Results: 3.12MProbably Benign Finding - 12 month F/U Suggested Date of Service: 12/26/23Follow Up: 12 month diagnos tic follow up Procedure(s): MM tomosynthesis diagnostic RT Accession Number(s): [id number] cc: Jazmín Quevedo MD ADDENDUM ADDENDUM: Typographical [...] signed by Torrey Rios MD in OV> 12/29/23 08 Addendum Cosigned By: DD/ /1300 TD/TT: / EXAMINATION: MM DIAGNOSTIC DIGITAL BREAST [...] in OV> 12/26/23 1348 DD/ 1315 TD/TT: Wardrobe Technician: us Jazmín Quevedo MD IMG BI PROCEDURES Edited R esult - Final * Thinprep PAP, HPV mRNA E6/E7 RFX HPV 16,18/45, Chlamydia/N. Gonorrhoeae (12/23/2022 9:47 AM EST) Clinical Information: NO HX ABNORMAL PAPS [employer] LMP: NONE GIVEN [employer] Prev. PAP: NONE GIVEN [employer] Prev. BX: NO [employer] SOURCE: None given [employer] Statement Of Adequacy: [email or web address] Comment: Satisfactory for evaluation. Endocervical/transformation zone component present. Interpretation/Re sult: Negative for intraepithelial lesion or malignancy. [email or web address] Mortgage Loan Closer: Ivana hager [employer] Comment: RXB, CT(ASCP) CT screening location: [address] ??[address] (Always Message) [employer] Comment: EXPLANATORY NOTE: The Pap is a [...] HPV nRNA E6/E7 Not Detected Not Detected [email or web address] Comment: Methodology: Quality Control Operator-Mediated Amplification This assay detects E6/E7 viral messenger RNA (mRNA) from 14 high-risk HPV types (16,18,31,33,35,39,45,51,52,56,58,59,66,68). Cervical sources are required for HPV testing. If a vaginal source from a patient who has had a total hysterectomy with removal of cervix was submitted, please contact the testing laboratory for alternative testing options. For additional information, please refer to http://education.CryptoSeal/faq/CUE984u8 (This link if provided for information/ educational purposes only.) Chlamydia trachomatis RNA, TMA, Urogenital NOT DETECTED NOT DETECTED [email or web address] Neisseria gonorrhoeae RNA, TMA, Urogenital NOT DETECTED NOT DETECTED [email or web address] (Always Message) Eyewitness Surveillance [facility] [employer] Comment: The analytical performance characteristics of this assay, when used to test SurePath(TM) specimens have been determined by [employer]. The modifications have not been cleared or approved by the FDA. This assay has been validated pursuant to the CLIA regulations and is used for clinical purposes. For additional information, please refer to https://Think Passenger.CryptoSeal/faq/DOY261 (This link is being provided for information/ educational purposes only.) Cytology specimen container (physical object) 12/23/2022 9:47 AM EST 12/24/2022 10:14 AM EST Jazmín Quevedo MD LAB PATHOLOGY ORDERABLES F inal Result [facility] [address], [place] [address] [facility] [address] [facility], ([address]) [place] [address] * Hepatitis C Viral RNA, Quantitative, Real-Time PC (10/02/2022 10:24 AM EST) HCV RNA, QN Real Time PCR <15 NOT DETECTED NOT DETECTED IU/mL [employer] HCV RNA QN Real Time PCR <1.18 NOT DETECTED NOT DETECTED Log IU/mL [facility] Comment: This test was performed using Real-Time Polymerase Chain Reaction. Reportable Range: 15 IU/mL to 100,000,000 IU/mL (1.18 Log IU/mL to 8.00 Log IU/mL). ?? The analytical performance characteristics of this assay have been determined by [employer]. The modifications have not been cleared or approved by the FDA. This assay has been validated pursuant to the CLIA regulations and is used for clinical purposes. ?? For more information on this test, go to: http://Think Passenger.CryptoSeal/faq/FWV35j7 (This link is being provided for informational/ educational purposes only.) 10/02/2022 10:2 4 AM EST 10/02/2022 10:25 AM EST Narrative [facility] - 10/05/2022 2:27 PM EST FASTING:YES FASTING: YES Jazmín Quevedo MD LAB BLOOD ORDERABLES Final Result [facility] [address], [place] [address] [employer] [place] [employer] [address] [facility], ([address]) [place] [address] * HIV-1/2 Antigen and Antibodies, Fourth Generation, with Reflexes (10/02/2022 10:24 AM EST) HIV Antigen/Antibody, 4th Generation NON-REAC TIVE NON-REAC TIVE [employer] Comment: HIV-1 antigen and HIV-1/HIV-2 antibodies were [...] ?? For additional information please refer to http://education.CryptoSeal/faq/IKP191 (This link is being provided for informational/ educational purposes only.) The performance of this assay has not been clinically validated in patients less than 2 years old. Blood Venous blood specimen / Unknown 10/02/2022 10:24 AM EST 10/02/2022 10:25 AM EST Narrative [facility] - 10/05/2022 2:27 PM EST FASTING:YES FASTING: YES Jazmín Quevedo MD LAB BLOOD ORDERABLES Final Result [facility] [address], [place] [address] [employer] [place] [employer] [address] [facility], ([address]) [place] [address] * (ABNORMAL) Lipid Panel, Standard (10/02/2022 10:24 AM EST) Cholesterol, Total 173 <200 mg/dL [facility] [employer] HDL Cholesterol 52 > OR = 50 mg/dL [facility] [place] [employer] Triglycerides 57 <150 mg/dL [facility] [place] [employer] LDL Cholesterol 107(H) mg/dL (calc) [facility] [place] [employer] Comment: Reference range: <100 Desirable range <100 mg/dL for primary prevention; ?? <70 mg/dL for patients with CHD or diabetic patients with > or = 2 CHD risk factors. LDL-C is now calculated using the Denise calculation, which is a validated novel method providing better accuracy than the Friedewald equation in the estimation of LDL-C. Kenrick SS et al. CAYETANO. 2013;310(19): 0114-8625 (http://education.Coffee and Power/faq/STR978) Chol/HDLC Ratio 3.3 <5.0 (calc) [employer] Non-HDL Cholesterol 121 <130 mg/dL (calc) [facility] [employer] Comment: For patients with diabetes plus 1 major ASCVD risk factor, treating to a non-HDL-C goal of <100 mg/dL (LDL-C of <70 mg/dL) is considered a therapeutic option. Blood Venous blood specimen / Unknown 10/02/2022 10:24 AM EST 10/02/2022 10:25 AM EST Narrative [facility] - 10/05/2022 2:27 PM EST FASTING:YES FASTING: YES us Jazmín Quevedo MD LAB BLOOD ORDERABLES Final Result [facility] [address], [place] [address] [employer] [address] [facility], ([address]) [place] [address] from Last 3 Months or Most Recently Relevant to Health Maintenance Insurance [facility] C3 Care Teams Shipwright Apprentice Relationship Specialty Start Date End Date [place], [place] Jazmín [address] [place] [phone] PCP - General Family Medicine 10/20/18
--- OUTSIDE RECORDS SUMMARY | 2025-03-01 13:28 | XMS_ITS | Encounter Summary ---
Author Organization [email or web address] Address [address] [facility] 7[address] [place] [address] Care Team Providers Care Hat Cleaner Name Role Phone Jazmín Quevedo MD Primary Care Provider +1- [phone] Reason for Referral * Consultation (Routine) - Pending Review Specialty Diagnoses / Procedures Referred By Keo chen Referred To Contact Pain Medicine Diagnoses Chronic right-sided low back pain with right-sided sciatica Yeison Erwin MD [address] [place] [address] Phone: tel: fax: Referral ID Status Reason Start Date Expiration Date Visits Requested Visits Authorized [id number] Pending Review Specialty Services Required 03/01/2025 03/01/2026 1 1 Reason for Visit * Reason Comments Leg Pain Encounter Details Date Type Department Care Team ([facility] Contact Info) Description 03/01/2025 10:40 AM EDT Office Visit [facility] [address] [place] [phone] Right flank pain (Primary Dx); Posterior chest pain; Chronic right-sided low back pain with right-sided sciatica Social History Tobacco Use Types Packs/Day Years [...] the past 12 months, has t he [employer], gas, oil or water company threatened to [...] AM EST documented as of this encounter Last Filed Vital Signs Vital Sign Reading [...] 12.8 oz) 025 10:39 AM EDT Height - - Body Mass Index 34.47 07/19/2024 6:52 PM EDT documented in this encounter Plan of Treatment Scheduled Orders Name Type Priority Associated Diagnoses Orde r Schedule Culture, Urine, Routine Microbiology Routine Posterior chest pain Ordered: 03/01/2025 XR Chest 2 Views Imaging Routine Posterior chest pain Expected: 03/01/2025, Expires: 03/01/2026 D-Dimer, Quantitative Lab Routine Posterior chest pain Expected: 03/01/2025 (Approximate), Expires: 03/01/2026 Scheduled Referrals Name Type Priority Associated Diagnoses Orde r Schedule Referral to Pain Medicine Outpatient Referral Routine Chronic right-sided low back pain with right-sided sciatica Expected: 03/01/2025 (Approximate), Expires: 03/01/2026 documented as of this encounter Procedures Procedure Name Priority Date/Time Associated Diagnosis Comments POCT URINALYSIS DIPSTICK Routine 03/01/2025 1:13 PM EDT Posterior chest pain documented in this encounter Results * (ABNORMAL) POCT urinalysis dipstick manually [...] None Detected Urine 03/01/2025 1:13 PM EDT Yeison Erwin MD POINT OF CARE TEST ENTER/EDIT OR DERABLES Final Result documented in this encounter Visit Diagnoses Diagnosis Right flank pain- Primary Abdominal pain, unspecified site Posterior chest pain Chronic right-sided low back pain with right-sided sciatica documented in this encounter Additional Health Concerns Assessment Noted Time PHQ-9 Depression Total Score: 0 12/24/19 23 9:04 AM EST documented as of this encounter Care Teams Hat Cleaner Relationship Specialty Start Date End Date Jazmín Quevedo MD [address] [place] [phone] PCP - General Family Medicine 10/20/18 documented as of this encounter
--- OUTSIDE RECORDS SUMMARY | 2025-03-01 13:28 | XMS_ITS | Encounter Summary ---
Author Organization [employer] Address [address] [facility] 7t [place] [address] Care Team Providers Care Neurology Tech Name Role Phone Jazmín Quevedo MD Primary Care Provider [phone]- [phone] Reason for Visit * Reason Comments Med Refill Encounter Details Date Type Department Care Team ([facility] st Contact Info) Description 04/15/2023 Refill [facility] [address] [place], [place] [phone] Jazmín Quevedo MD [address] [place], [place] [phone] Social History Tobacco Use Types Packs/Day Years [...] documented as of this encounter Care Teams Neurology Tech Relationship Specialty Start Date End Date Jazmín Quevedo MD [address] [place] [address] PCP - General Family Medicine 10/20/18 documented as of this encounter
== END 2025-03-01 12:22 | disposition home or self-care (01) ==
LOC: HO.XRAY 12:21
PROVIDERS: PCP Family Medicine; Visit Provider Emergency Medicine
DX: R07.89 Other chest pain (principal)
CPT/HCPCS: 36415; 71046; 85379

== ENCOUNTER → 2025-03-01 12:41 | Outpatient (BNV) | payer MEDICAID, SELFPAY | PROVIDERS: PCP Family Medicine; Visit Provider Radiology Diagnostic Radiology | DX: R07.9 Chest pain, unspecified (principal) | CPT/HCPCS: 71046 ==

== ENCOUNTER 2025-03-01 16:09 | Outpatient (REF) | payer MEDICAID, SELFPAY ==
--- OUTSIDE RECORDS SUMMARY | 2025-03-01 16:37 | XMS_ITS | Encounter Summary ---
Author Organization [employer] Address [address] [facility] 7t [place] [address] Care Team Providers Care Accounts Receivable Collector Name Role Phone Jazmín Quevedo MD Primary Care Provider +1- [phone] Reason for Referral * Consultation (Routine) - Pending Review Specialty Diagnoses / Procedures Referred By Keo chen Referred To Contact Pain Medicine Diagnoses Chronic right-sided low back pain with right-sided sciatica Yeison Franklin MD [address] [place] [address] Phone: tel: fax: Referral ID Status Reason Start Date Expiration Date Visits Requested Visits Authorized [id number] Pending Review Specialty Services Required 03/01/2025 03/01/2026 1 1 Reason for Visit * Reason Comments Leg Pain Encounter Details Date Type Department Care Team ([facility] Contact Info) Description 03/01/2025 10:40 AM EDT Office Visit [facility] [address] [place] [address] Yeison Franklin MD [address] [place] [phone] Right flank pain (Primary Dx); Posterior chest [...] 6:52 PM EDT documented in this encounter Progress Notes * Yeison Franklin MD - 03/01/2025 10:40 AM EDT Subjective Patient ID: Minal Rodriguez is a 40 y.o. female. HPI Yesterday Minal woke with pain in right lateral upper back, worse with inspiration, walking, twisting torso, described as an ache. + tactile fever last night, chills with nausea, no vomiting. No cough, SOB, urinary sx. States that this pain is different than chronic right LBP with chronic numbness that goes down right LEKeo Fontaine was seen at the [facility] emergency department on December 09, 2024 for low back pain. It mentions that she has a history of back pain that worsened when she was loading a saw onto her truck. Lumbar spine x-rays: FINDINGS: There is a prominent right transverse process of L5 joining the right S1 with the sclerosis and thearticular surface. The last rib-bearing vertebra labeled T12 suggesting Castellvi type I sacralization. Endplate sclerosis and decreased intervertebral disc height at L5-S1. No acute cortical disruption or gross malalignment. No lytic or blastic lesions. XR lumbar spine 2-3V IMPRESSION: Consider Bertolotti syndrome, right-sided. Lives with and 8 children. LMP=5/1. H/o BTL Not employed. Smokes 6 cigarettes/day. Declines NRT Patient Active Problem List Diagnosis Cobalamin deficiency Vitamin D deficiency Chronic nonintractable headache Midline low back pain Right tennis elbow Palpitations Preventative health care Ganglion cyst Bilateral hand numbness Acute midline low back pain without sciatica The following portions of the chart were reviewed this encounter and updated as appropriate: Review of Systems Constitutional: Negative for fever. Respiratory: Negative for shortness of breath. Cardiovascular: Positive for chest pain. Gastrointestinal: Negative for abdominal pain. Musculoskeletal: Positive for back pain. Skin: Negative for rash. Neurological: Positive for numbness. Negative for headaches. Objective Physical Exam Constitutional: Appearance: Normal appearance. HENT: Right Ear: Tympanic membrane, ear canal and external ear normal. Left Ear: Tympanic membrane, ear canal and external ear normal. Nose: Nose normal. Mouth/Throat: Mouth: Mucous membranes are moist. Pharynx: Oropharynx is clear. Eyes: Conjunctiva/sclera: Conjunctivae normal. Pupils: Pupils are equal, round, and reactive to light. Cardiovascular: Rate and Rhythm: Normal rate and regular rhythm. Heart sounds: No murmur heard. Pulmonary: Effort: Pulmonary effort is normal. Breath sounds: Normal breath sounds. Musculoskeletal: General: Normal range of motion. Arms: Cervical back: No tenderness. Comments: Area over right upper back/flank where pain is located noted above. No tenderness or rash. Skin: Findings: No rash. Neurological: Mental Status: She is alert. Gait: Gait is intact. Psychiatric: Mood and Affect: Mood normal. Behavior: Behavior normal. Procedures Assessment/Plan Diagnoses and all orders for this visit: Right flank pain U/a: + nitrite, mod blood, mod delfina. Presumptive right pyelonephritis based on last night's fever, chills, nausea, and UA results. Urine C&S is pending. Will call patient with results Prescribed cefpodoxime. Patient declined any analgesic prescriptions. Advised to try ice or heat. Return to clinic if not improving Posterior chest pain Due to pleuritic nature of pain, D-dimer is ordered. Will call patient with results. Return to clinic if not improving - POCT urinalysis dipstick manually resulted - Culture, Urine, Routine - XR Chest 2 Views; Future - D-Dimer, Quantitative; Future Chronic right-sided low back pain with right-sided sciatica Referred to pain management. Other orders - cefpodoxime (Vantin) 200 MG tablet; Take 1 tablet (200 mg) by mouth 2 times daily for 7 days. documented in this encounter Plan of Treatment Scheduled Orders Name Type Priority Associated Diagnoses Orde r Schedule Culture, Urine, Routine Microbiology Routine Posterior chest pain Ordered: 03/01/2025 D-Dimer, Quantitative Lab Routine Posterior chest pain Expected: 03/01/2025 (Approximate), Expires: 03/01/2026 Scheduled Referrals Name Type Priority Associated Diagnoses Orde r Schedule Referral to Pain Medicine Outpatient Referral Routine Chronic right-sided low back pain with right-sided sciatica Expected: 03/01/2025 (Approximate), Expires: 03/01/2026 documented as of this encounter Procedures Procedure Name Priority Date/Time Associated Diagnosis Comments XR CHEST 2 VIEWS Routine 03/01/2025 4:00 PM EDT Posterior chest pain POCT URINALYSIS DIPSTICK Routine 03/01/2025 1:13 PM EDT Posterior chest pain documented in this encounter Results * XR Chest 2 Views (03/01/2025 4:00 PM EDT) Anatomical Region Laterality Modality Chest Radiographic Heather ging 03/01/2025 4:00 PM EDT Narrative 03/01/2025 4:01 PM EDT ? [facility] ?[address] ?[place] [address] ?XRay Report ? Signed ? Patient: Rodriguez,Minal ?MR#: [id number] ?? 34 ? : 1985 ?Acct:[id number] ? Age/Sex: 40 / F ?ADM Date: 03/01/25 ? Loc: HO.XRAY ? Attending Dr: Yeison Franklin MD ? Ordering Physician: YEISON FRANKLIN MD ?? Date of Service: 03/01/25 ?? Procedure(s): XR chest 2V ?? Accession Number(s): [id number] ? cc: YEISON FRANKLIN MD; Jazmín Quevedo MD ? CLINICAL HISTORY: atraumatic right posterior chest pain ? 2 view chest x-ray ? Comparison: None ? Findings: ?? No consolidation or effusion. ?? Heart size is normal. ?? No acute fracture. ? IMPRESSION: ?? 1. No acute findings. ? This document has been electronically signed by: Genaro Sanford MD on ?? 03/01/2025 16:00:15 ? Dictated By: ?Genaro Sanford MD ? Signed By: ?<Electronically signed by Genaro Sanford MD in OV> ? 03/01/25 1601 ? DD/ 1600 ? TD/TT: 03/01/25 1600 ? Producer: ? Procedure Note Faith Schilling - 03/01/[address] [address] XRay Report Signed Patient: Trinidad Rodriguez#: [id number] [birth year] : 1985Acct:[id number] Age/Sex: 40 / FADM Date: 03/01/25 Loc: [facility] Attending Dr: Yeison Franklin MD Ordering Physician: YEISON FRANKLIN MD Date of Service: 03/01/25 Procedure(s): XR chest 2V Accession Number(s): [id number] cc: YEISON FRANKLIN MD; Jazmín Quevedo MD CLINICAL HISTORY: atraumatic right posterior chest pain 2 view chest x-ray Comparison: None Findings: No consolidation or effusion. Heart size is normal. No acute fracture. IMPRESSION: 1. No acute findings. This document has been electronically signed by: Genaro Sanford MD on 03/01/2025 16:00:15 Dictated By: Genaro Sanford MD Signed By: <Electronically signed by Genaro Sanford MD in OV> 03/01/25 1601 DD/ 1600 TD/TT: 03/01/25 1600 Producer: us Yeison Franklin MD IMG XR PROCEDURES Final Result * (ABNORMAL) POCT urinalysis dipstick manually resulted [...] Urine 03/01/2025 1:13 PM EDT us Yeison Franklin MD POINT OF CARE TEST ENTER/EDIT OR DERABLES Final Result documented in this encounter Visit Diagnoses Diagnosis Right flank pain- Primary Abdominal pain, unspecified site Posterior chest pain Chronic right-sided low back pain with right-sided sciatica documented in this encounter Additional Health Concerns Assessment Noted Time PHQ-9 Depression Total Score: 0 12/24/19 23 9:04 AM EST documented as of this encounter Care Teams Accounts Receivable Collector Relationship Specialty Start Date End Date Jazmín Quevedo MD [address] [place] [address] PCP - General Family Medicine 10/20/18 documented as of this encounter
--- OUTSIDE RECORDS SUMMARY | 2025-03-01 16:37 | XMS_ITS | Clinical Summary ---
Author Organization [employer] Address [address] [facility] 7t [place] [address] Care Team Providers Care Database Marketing Specialist Name Role Phone Jazmín Quevedo MD Primary Care Provider +1- [phone] Allergies No known active allergies Medications SUMAtriptan [...] 10/02/2022 Overview (10/02/2022): -Dx on exam 10/02/2022 -[place] of elbow brace Assessment & Plan (10/02/2022 12:50 PM EST): -Dx on exam 10/02/2022 -[place] of elbow brace Vitamin D deficiency 09/30/2022 [...] Description 03/01/2025 10:40 AM EDT Office Visit [facility] [address] [place] [address] Yeison Franklin MD Right flank pain (Primary Dx); Posterior chest pain; Chronic right-sided low back pain with right-sided sciatica 03/01/2025 Telephone [facility] [address] [place] [address] Yeison Franklin MD 01/07/2025 Telephone [facility] MEDICINE [address] [place] [phone] Jazmín Quevedo MD mammography appoinment 12/09/2024 Orders Only [facility] External Provider, [facility] Acute midline low back pain without sciatica (Primary Dx) 12/09/2024 Telephone [facility] [address] [place], [place] [phone] Jazmín Quevedo MD Nurse Triage from Last [...] Relevant to Health Maintenance Results * XR Chest 2 Views (03/01/2025 4:00 PM EDT) Anatomical Region Laterality Modality Chest Radiographic Heather ging 03/01/2025 4:00 PM EDT Narrative 03/01/2025 4:01 PM EDT ? [facility] ?[address] ?[place] [address] ?XRay Report ? Signed ? Patient: Minal Rodriguez ?MR#: [id number] ?? 34 ? : 1985 ?Acct:[id number] ? Age/Sex: 40 / F ?ADM Date: 03/01/25 ? Loc: HO.XRAY ? Attending Dr: Yeison Franklin MD ? Ordering Physician: YEISON FRANKLIN MD ?? Date of Service: 03/01/25 ?? Procedure(s): XR chest 2V ?? Accession Number(s): [id number] ? cc: YEISON FRANKLIN MD; Jazmín Quevedo [...] DD/ 1600 ? TD/TT: 03/01/25 1600 ? Biological Science Technician Fish: ? Procedure Note Donotuseinterpreter, Image - 03/01/[address] [address] XRay Report Signed Patient: Trinidad Rodriguez#: [id number] [birth year] : 1985Acct:[id number] Age/Sex: 40 / FADM Date: 03/01/25 Loc: HO.XRAY Attending Dr: Yeison Franklin MD Ordering Physician: YEISON FRANKLIN MD Date of Service: 03/01/25 Procedure(s): XR chest 2V Accession Number(s): [id number] cc: YEISON FRANKLIN MD; Jazmín Quevedo MD [...] 03/01/25 1601 DD/ 1600 TD/TT: 03/01/25 1600 Biological Science Technician Fish: Yeison Franklin MD IMG XR PROCEDURES Final [...] Dimer High Sensitivity (03/01/2025 12:38 PM EDT) D Dimer High Sensitivity 234 NG/ML [facility] Comment:D-DIMER HS REFERENCE RANGENote: Our assay reports D-Dimer Units (D- DU).The cut-off value for venous thromboembolic (VTE) disease is230 ng/mL. This value has a very high negative predictivevalue when the patient has a low to moderate clinicalprobability of VTE.The upper limit of normal is 243 ng/mL. 03/01/2025 12:3 8 PM EDT 03/01/2025 12:38 PM EDT us Yeison Franklin MD LAB BLOOD ORDERABLES Final Resul t [facility] [address] [place] [address] [phone] * XR Lumbar Spine 2-3 Views (12/09/2024 1:16 PM EST) Anatomical Region Laterality Modality Spine, L-spine Radiographic Heather ging 12/09/2024 1:16 PM EST Narrative 12/09/2024 1:40 PM EST ? [facility] ?[address] ?[place] [address] ?XRay Report ? Signed ? Patient: Rodriguez,Minal ?MR#: [id number] ?? 34 ? : 1985 ?Acct:[id number] ? Age/Sex: 39 / F ?ADM Date: 02/20/25 ? Loc: HO.ED ? Attending Dr: ? Ordering Physician: Kadi Hernandez NP ?? Date of Service: 12/09/24 ?? Procedure(s): XR lumbar spine 2-3V ?? Accession Number(s): [id number] ? cc: Jazmín Quevedo MD; Kadi Hernandez [...] Garzon MD ??12/09/2024 01:37 PM ?? EST ? Dictated By: ?Grupo Watson MD ? Signed By: ?<Electronically signed by Grupo Clemens MD in OV> ? 12/09/24 1337 ? DD/ 1316 ? TD/TT: 12/09/24 1330 ? Biological Science Technician Fish: ? Procedure Note Tonie, Faith - 12/09/2024 [place] [address] XRay Report Signed Patient: Trinidad Rodriguez#: [id number] 34 : 1985Acct:[id number] Age/Sex: 39 / FADM Date: 12/09/24 Loc: HO.ED Attending Dr: Ordering Physician: Kadi Hernandez NP Date of Service: 12/09/24 Procedure(s): XR lumbar spine 2-3V Accession Number(s): [id number] cc: Jazmín Quevedo MD; Kadi Hernandez NP [...] 12/09/24 1337 DD/ 1316 TD/TT: 12/09/24 1330 Biological Science Technician Fish: [facility] External Provider IMG XR PROCEDURES Final Result * BI Mammogram Diagnostic Tomosynthesis Right (12/26/2023 1:15 PM EST) Anatomical Region Laterality Modality Breast Right Mammography 12/26/2023 1:15 PM EST Narrative 12/26/2023 1:52 PM EST ? [facility] [place] ? [address] [place] [address] ? Mammography Report ? Signed with Addenda ? Patient: Perri Rodriguezn ?MR#: [id number] ?? 34 ? : 1985 ?Acct:[id number] ? Age/Sex: 38 / F ?ADM Date: //24 ? Loc: HO.MAMMO ? Attending Dr: Jazmín Quevedo MD ? Ordering Physician: Jazmín Quevedo MD ? Results: 3.12MProbably Benign Finding - 12 month F/U ?? Suggested ? Date of Service: 12/26/23 ?Follow Up: 12 month diagnos ?? tic follow up ? Procedure(s): MM tomosynthesis diagnostic RT ?? Accession Number(s): [id number] ? cc: Jazmín Quevedo MD ?ADDENDUM ?? [...] 1348 ? DD/ 1315 ? TD/TT: ? Biological Science Technician Fish: ? Procedure Note Tonie, Image - 12/29/2023 [facility] [address] [place] [address] Dr. Julien, [place] [address] Mammography Report Signed with Glenn Patient: Perri RodriguezElíasR#: [id number] 34 : 1985Acct:[id number] Age/Sex: 38 / FADM Date: 12/26/23 Loc: [facility] Attending Dr: Jazmín Quevedo MD Ordering Physician: Jazmín Quevedo MD Results: 3.12MProbably Benign Finding - 12 month F/U Suggested Date of Service: 12/26/23Follow Up: 12 month diagnos tic follow up Procedure(s): MM tomosynthesis diagnostic RT Accession Number(s): [id number] cc: Jazmín Quevedo MD ADDENDUM ADDENDUM: Typographical [...] in OV> 12/26/23 1348 DD/ 1315 TD/TT: Biological Science Technician Fish: Jazmín Quevedo MD IM BI PROCEDURES Edited R esult - Final * Thinprep PAP, HPV mRNA E6/E7 RFX HPV 16,18/45, Chlamydia/N. Gonorrhoeae (12/23/2022 9:47 AM EST) Clinical Information: NO HX ABNORMAL PAPS [facility] LMP: NONE GIVEN [facility] Prev. PAP: NONE GIVEN [facility] Prev. BX: NO [facility] Diagnost SOURCE: None given [facility] Statement Of Adequacy: [facility] Comment: Satisfactory for evaluation. Endocervical/transformation zone component present. Interpretation/Re sult: Negative for intraepithelial lesion or malignancy. [employer] [place] [employer] Pasta Maker: Ivana Sberbankt Comment: RXB, CT(ASCP) CT screening location: [address] ??[address] (Always Message) [facility] [employer] Comment: EXPLANATORY NOTE: The Pap is a [...] HPV nRNA E6/E7 Not Detected Not Detected [facility] Comment: Methodology: Jacquard Twine Polisher Operator-Mediated Amplification This assay detects E6/E7 viral messenger RNA (mRNA) from 14 high-risk HPV types (16,18,31,33,35,39,45,51,52,56,58,59,66,68). Cervical sources are required for HPV testing. If a vaginal source from a patient who has had a total hysterectomy with removal of cervix was submitted, please contact the testing laboratory for alternative testing options. For additional information, please refer to http://MyToons.Sage Science/faq/VLY696a1 (This link if provided for information/ educational purposes only.) Chlamydia trachomatis RNA, TMA, Urogenital NOT DETECTED NOT DETECTED [facility] Neisseria gonorrhoeae RNA, TMA, Urogenital NOT DETECTED NOT DETECTED [facility] (Always Message) [facility] [employer] Comment: The analytical performance characteristics of this assay, when used to test SurePath(TM) specimens have been determined by [employer] [employer]. The modifications have not been cleared or approved by the FDA. This assay has been validated pursuant to the CLIA regulations and is used for clinical purposes. For additional information, please refer to https://MyToons.Sage Science/faq/ZRQ086 (This link is being provided for information/ educational purposes only.) Cytology specimen container (physical object) 12/23/2022 9:47 AM EST 12/24/2022 10:14 AM EST us Jazmín Quevedo MD LAB PATHOLOGY ORDERABLES F inal Result [facility] [address], [place] [address] [facility] [address] [facility], (Nl[address]) [place] [address] * Hepatitis C Viral RNA, Quantitative, Real-Time PC (10/02/2022 10:24 AM EST) Pathologist [facility] HCV RNA, QN Real Time PCR <15 NOT DETECTED NOT DETECTED IU/mL [facility] HCV RNA QN Real Time PCR <1.18 NOT DETECTED NOT DETECTED Log IU/mL [facility] Comment: This test was performed using Real-Time Polymerase Chain Reaction. Reportable Range: 15 IU/mL to 100,000,000 IU/mL (1.18 Log IU/mL to 8.00 Log IU/mL). ?? The analytical performance characteristics of this assay have been determined by [employer]. The modifications have not been cleared or approved by the FDA. This assay has been validated pursuant to the CLIA regulations and is used for clinical purposes. ?? For more information on this test, go to: http://education.Sage Science/faq/BFV78v4 (This link is being provided for informational/ educational purposes only.) 10/02/2022 10:2 4 AM EST 10/02/2022 10:25 AM EST Narrative [facility] - 10/05/2022 2:27 PM EST FASTING:YES FASTING: YES us Jazmín Quevedo MD LAB BLOOD ORDERABLES Final Result [facility] [address] [facility], [facility], [place] [address] [facility] [address] [facility], (Nl[address]) [place] [address] * HIV-1/2 Antigen and Antibodies, Fourth Generation, with Reflexes (10/02/2022 10:24 AM EST) [facility] HIV Antigen/Antibody, 4th Generation NON-REAC TIVE NON-REAC TIVE [employer] [facility] [place] [facility] [employer] Comment: HIV-1 antigen and HIV-1/HIV-2 antibodies were [...] ?? For additional information please refer to http://MyToons.Sage Science/faq/HZX748 (This link is being provided for informational/ educational purposes only.) The performance of this assay has not been clinically validated in patients less than 2 years old. Blood Venous blood specimen / Unknown 10/02/2022 10:24 AM EST 10/02/2022 10:25 AM EST Narrative [facility] - 10/05/2022 2:27 PM EST FASTING:YES FASTING: YES us Jazmín Quevedo MD LAB BLOOD ORDERABLES Final Result [facility] [address] [facility], [facility], [place] [address] [employer] [place] [employer] [address] [facility], (Nl[address]) [place] [address] * (ABNORMAL) Lipid Panel, Standard (10/02/2022 10:24 AM EST) Cholesterol, Total 173 <200 mg/dL [facility] HDL Cholesterol 52 > OR = 50 mg/dL [facility] Triglycerides 57 <150 mg/dL [facility] LDL Cholesterol 107(H) mg/dL (calc) [facility] Comment: Reference range: <100 Desirable range <100 mg/dL for primary prevention; ?? <70 mg/dL for patients with CHD or diabetic patients with > or = 2 CHD risk factors. LDL-C is now calculated using the Kenrick-Dawit calculation, which is a validated novel method providing better accuracy than the Friedewald equation in the estimation of LDL-C. Kenrick SS et al. CAYETANO. 2013;310(19): 0630-1165 (http://education.Zuffle/faq/LPO254) Chol/HDLC Ratio 3.3 <5.0 (calc) [facility] Non-HDL Cholesterol 121 <130 mg/dL (calc) [facility] Comment: For patients with diabetes plus 1 major ASCVD risk factor, treating to a non-HDL-C goal of <100 mg/dL (LDL-C of <70 mg/dL) is considered a therapeutic option. Blood Venous blood specimen / Unknown 10/02/2022 10:24 AM EST 10/02/2022 10:25 AM EST Narrative [facility] - 10/05/2022 2:27 PM EST FASTING:YES FASTING: YES Jazmín Quevedo MD LAB BLOOD ORDERABLES Final Result [facility] [address] [facility], [facility], [place] [address] [employer] [facility] [address] [facility], (N[address]) [place] [address] from Last 3 Months or Most Recently Relevant to Health Maintenance Insurance [employer] C3 Care Teams Database Marketing Specialist Relationship Specialty Start Date End Date [place], [place] Jazmín [address] [place] [address] PCP - General Family Medicine 10/20/18
--- OUTSIDE RECORDS SUMMARY | 2025-03-01 16:37 | XMS_ITS | Encounter Summary ---
Author Organization [employer] Address [address] [facility] 7t [place] [address] Care Team Providers Care Loan Originator Name Role Phone Jazmín Quevedo MD Primary Care Provider +1- [phone] Reason for Visit * Reason Comments Med Refill Encounter Details Date Type Department Care Team ([facility] st Contact Info) Description 04/15/2023 Refill [facility] [address] [place], [place] [phone] Jazmín Quevedo MD [address] [place], [place] [phone] Social History Tobacco Use Types Packs/Day Years [...] documented as of this encounter Care Teams Loan Originator Relationship Specialty Start Date End Date Jazmín Quevedo MD [address] [place] [address] PCP - General Family Medicine 10/20/18 documented as of this encounter
--- OUTSIDE RECORDS SUMMARY | 2025-03-01 16:37 | XMS_ITS | Encounter Summary ---
Author Organization [employer] Address [address] [facility] [facility] [address] [place] [address] Care Team Providers Care Clinical Associate Name Role Phone Jazmín Quevedo MD Primary Care Provider +1- [phone] Encounter Details Date Type Department Care Team (Late st Contact Info) Description 03/01/2025 Telephone [facility] [address] [place], [place] [phone] Yeison Erwin MD [address] [place], [place] [phone] Social History Tobacco Use Types Packs/Day Years [...] encounter Miscellaneous Notes * Telephone Encounter - Yeison Erwin MD - 03/01/2025 3:26 PM EDT I notified Minal of today's negative D-dimer result. documented in this encounter Plan of Treatment Not on file documented as of this encounter Visit Diagnoses Not on filedocumented in this encounter Additional Health Concerns Assessment Noted Time PHQ-9 Depression Total Score: 0 12/24/19 23 9:04 AM EST documented as of this encounter Care Teams Clinical Associate Relationship Specialty Start Date End Date Jazmín Quevedo MD [address] [place] [address] PCP - General Family Medicine 10/20/18 documented as of this encounter
== END 2025-03-01 16:10 | disposition home or self-care (01) ==
LOC: HO.HHCLNP 16:09
PROVIDERS: Visit Provider Emergency Medicine
DX: R07.89 Other chest pain (principal)
CPT/HCPCS: 87086; 87088; 87186

== ENCOUNTER 2025-03-21 08:56 | Outpatient (AMB) | payer MEDICAID, SELFPAY ==
[2025-03-21 09:04] VITALS: BP 134/71; PULSE 75; O2SAT 99
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
--- OUTSIDE RECORDS SUMMARY | 2025-03-21 09:24 | XMS_ITS | Clinical Summary ---
Author Organization [employer] Address [address] [facility] [address] [place] [address] Care Team Providers Care Retail Office Associate Name Role Phone Jazmín Quevedo MD Primary Care Provider [phone] Allergies No known active allergies Medications SUMAtriptan (Imitrex) 25 MG tablet Take 1 tablet by mouth if needed each day. 2 Active topiramate (Topamax) 25 MG tablet Take 25 mg by mouth at bedtime. 2 Active cyclobenzaprine (Flexeril) 5 MG tablet Take 1 tablet by mouth if needed at bedtime for pain. 2 Active ondansetron (Zofran) 4 MG tablet Take 1 tablet by mouth. When migraine comes with nausea, up to three times a day as needed 2 Active amitriptyline (Elavil) 25 MG tablet Take 25 mg by mouth at bedtime. 3 Active Benzocaine 15 MG lozengeIndicati ons:Acute viral syndrome Dissolve 15 mg in the mouth Every 4-6 hours as needed (sore throat). 100 lozenge 3 Active baclofen (Lioresal) 10 MG tablet Take 1 tablet (10 mg) by mouth every 8 (eight) hours if needed for muscle spasms. 90 tablet 4 Active cefpodoxime (Vantin) 200 MG tablet Take 1 tablet (200 mg) by mouth 2 times daily for 7 days. 14 tablet 5 03/08/20 25 Active Problems Problem Noted Date Diagnosed Date [...] 10/02/2022 Overview (10/02/2022): -Dx on exam 10/02/2022 -[place] of elbow brace Assessment & Plan (10/02/2022 12:50 PM EST): -Dx on exam 10/02/2022 -[place] of elbow brace Vitamin D deficiency 09/30/2022 [...] Encounters Date Type Department Care Team Description 03/10/2025 Refill [facility]ALK[facility] [address] [place] [address] Yeiosn Franklin MD 03/04/2025 Telephone [facility] [address] [place] [address] Yeison Franklin MD 03/03/2025 Population Health Risk Score [facility] ([facility]) Department [address] [place] [phone] Provider, Population Health Generic 03/01/2025 10:40 AM EDT Office Visit [facility] [address] [place] [address] Yeison Franklin MD Right flank pain (Primary Dx); Posterior chest pain; Chronic right-sided low back pain with right-sided sciatica 03/01/2025 Telephone [facility] [address] [place], [place] [phone] Yeison Franklin MD 01/07/2025 Telephone [facility] MEDICINE [address] [place], [place] [phone] Jazmín Quevedo MD mammography appoinment from Last 3 Months Immunizations Immunization Administration Dates Next Due DTaP 08/31/2013 Influenza [...] 07/19/2024 6:52 PM EDT Plan of Treatment Upcoming Encounters Date Type Department Care Team (Late st Contact Info) Description 04/29/2025 10:00 AM EDT Office Visit [facility] MEDICINE [address] [place] [address] Jazmín Quevedo MD [address] [place] [address] Health Maintenance Due Date Last Done Comments Alcohol/Substance Use Screening 1995 Family Planning (PISQ) 1998 Hepatitis B Vaccines (1 of 3 - 19+ 3-dose series) 2002 Pneumococcal Vaccine: Pediatrics (0 to 5 Years) and At-Risk Patients (6 to 49) Years) (1 of 2 - PCV) 2002 Depression Screening 12/24/2023 12/23/2022, 12/24/19 SDOH Screening 12/24/2023 12/23/2022 COVID-19 Vaccine ( season) 2024 03/02/2021, 02/09/2021 Diagnostic Breast Imaging 12/25/2024 12/26/2023, Mammogram 01/17/2025 12/26/2023, 06/20, 06/11/2023 Influenza Vaccine (Season Ended) 2025 10/02/2022, 09/26/2020, 09/09/2019, Additional history exists Disability Screening 03/01/2026 03/01/2025 Tobacco Screening 03/01/2026 03/01/2025 Lipid Panel 10/02/2027 [...] patient's age to complete this topic Meningococcal B Vaccine Aged Out No l onger eligible based on patient's age to complete [...] Acute midline low back pain without sciatica CULTURE, URINE, ROUTINE Routine 03/01/2025 11:58 AM EDT Posterior chest pain BI MAMMOGRAM DIAGNOSTIC TOMOSYNTHESIS RIGHT Routine 12/26/2023 [...] EDT Narrative 03/01/2025 4:01 PM EDT ? [facility] ?[address] ?[place] [address] ?XRay Report ? Signed ? Patient: Rodriguez,Minal ?MR#: [id number] ?? 32 ? : 1985 ?Acct:[id number] ? Age/Sex: 40 / F ?ADM Date: 03/01/25 ? Loc: HO.XRAY ? Attending Dr: Yeison Franklin MD ? Ordering Physician: YEISON FRANKLIN MD ?? Date of Service: 03/01/25 ?? Procedure(s): XR chest 2V ?? Accession Number(s): [id number] ? cc: YEISON FRANKLIN MD; Jazmín Quevedo [...] DD/ 1600 ? TD/TT: 03/01/25 1600 ? Embroiderer: ? Procedure Note [facility], Image - 03/01/[address] [address] XRay Report Signed Patient: Trinidad Rodriguez#: [id number] 32 : 1985Acct:[id number] Age/Sex: 40 / FADM Date: 03/01/25 Loc: HO.LAUROAY Attending Dr: Yeison Franklin MD Ordering Physician: YEISON FRANKLIN MD Date of Service: 03/01/25 Procedure(s): XR chest 2V Accession Number(s): [id number] cc: YEISON FRANKLIN MD; Jazmín Quevedo MD [...] 03/01/25 1601 DD/ 1600 TD/TT: 03/01/25 1600 Embroiderer: us Yeison Franklin MD IMG XR PROCEDURES [...] EDT) D Dimer High Sensitivity 234 NG/ML [facility] Comment:D-DIMER HS REFERENCE RANGENote: Our [...] MD LAB BLOOD ORDERABLES Final Resul t [facility] [address] [place] [phone] * Culture, Urine, Routine (03/01/2025 11:58 AM EDT) Urine Urine specimen obtained by clean catch procedure / Unknown 03/01/2025 11:58 AM EDT 03/01/2025 4:10 PM EDT Comment:UACC Narrative [facility] - 03/03/2025 7:45 AM EDT Escherichia coli Quant > 100,000 cfu/mL Escherichia coli: Ampicillin <=2(S) Escherichia coli: Cefazolin (Urine) <=1(S) Escherichia coli: Cefepime <=0.12(S) Escherichia coli: Ceftriaxone <=0.25(S) Escherichia coli: Ciprofloxacin <=0.06(S) Escherichia coli: Gentamicin <=1(S) Escherichia coli: Nitrofurantoin <=16(S) Escherichia coli: Trimethoprim/Sulfamethoxazole <=20(S) Specimen Source: Urine clean catch Yeison Franklin MD LAB MICROBIOLOGY - GENERAL ORDER FEDERICO Final Result Performing Organization Address [facility]/State/ZIP Co de Phone Number [facility] [address] [place] [address] [phone] * BI Mammogram Diagnostic Tomosynthesis Right (12/26/2023 1:15 PM EST) Anatomical Region Laterality Modality Breast Right Mammography 12/26/2023 1:15 PM EST Narrative 12/26/2023 1:52 PM EST ? [facility] ? [address] ?[place] [address] ? Mammography Report ? Signed with Addenda ? Patient: Rodriguez,Minal ?MR#: [id number] ?? 32 ? : 1985 ?Acct:[id number] ? Age/Sex: 38 / F ?ADM Date: 03/08/24 ? Loc: HO.MAMMO ? Attending Dr: Jazmín Quevedo MD ? Ordering Physician: Jazmín Quevedo MD ? Results: 3.12MProbably Benign Finding - 12 month F/U ?? Suggested ? Date of Service: 12/26/23 ?Follow Up: 12 month diagnos ?? tic follow up ? Procedure(s): MM tomosynthesis diagnostic RT ?? Accession Number(s): [id number] ? cc: Jazmín Quevedo MD ?ADDENDUM ?? [...] 1348 ? DD/ 1315 ? TD/TT: ? Embroiderer: ? Procedure Note Faith Schilling - 12/29/2023 [facility] [address] [place] [address] Dr. Julien, MEME [address] Mammography Report Signed with Addenda Patient: Perri RodrigueznMR#: [id number] 32 : 1985Acct:[id number] Age/Sex: 38 / FADM Date: 12/26/23 Loc: HO.MAMMO Attending Dr: Jazmín Quevedo MD Ordering Physician: Jazmín Quevedo MD Results: 3.12MProbably Benign Finding - 12 month F/U Suggested Date of Service: 12/26/23Follow Up: 12 month diagnos tic follow up Procedure(s): MM tomosynthesis diagnostic RT Accession Number(s): [id number] cc: Jazmín Quevedo MD ADDENDUM ADDENDUM: Typographical [...] in OV> 12/26/23 1348 DD/ 1315 TD/TT: Embroiderer: us Jazmín Quevedo MD IMG BI PROCEDURES Edited R esult - Final * Thinprep PAP, HPV mRNA E6/E7 RFX HPV 16,18/45, Chlamydia/N. Gonorrhoeae (12/23/2022 9:47 AM EST) Clinical Information: NO HX ABNORMAL PAPS [facility] LMP: NONE GIVEN [employer] [facility] Prev. PAP: NONE GIVEN [employer] [facility] Prev. BX: NO [employer] [facility] SOURCE: None given [facility] Statement Of Adequacy: [facility] Comment: Satisfactory for evaluation. Endocervical/transformation zone component present. Interpretation/Re sult: Negative for intraepithelial lesion or malignancy. [facility] Copyholder: Ivana Vertrot Comment: RXB, CT(ASCP) CT screening location: [address] ??[address] (Always Message) Que [employer] Comment: EXPLANATORY NOTE: The Pap is a [...] HPV nRNA E6/E7 Not Detected Not Detected [facility] Comment: Methodology: [place] Worker Helper-Mediated Amplification This assay detects E6/E7 viral messenger RNA (mRNA) from 14 high-risk HPV types (16,18,31,33,35,39,45,51,52,56,58,59,66,68). Cervical sources are required for HPV testing. If a vaginal source from a patient who has had a total hysterectomy with removal of cervix was submitted, please contact the testing laboratory for alternative testing options. For additional information, please refer to http://Kid Bunch.Tapjoy/faq/FJV154m6 (This link if provided for information/ educational purposes only.) Chlamydia trachomatis RNA, TMA, Urogenital NOT DETECTED NOT DETECTED [facility] Neisseria gonorrhoeae RNA, TMA, Urogenital NOT DETECTED NOT DETECTED [facility] (Always Message) [employer] [place] [facility] Comment: The analytical performance characteristics of this assay, when used to test SurePath(TM) specimens have been determined by [employer]. The modifications have not been cleared or approved by the FDA. This assay has been validated pursuant to the CLIA regulations and is used for clinical purposes. For additional information, please refer to https://Kid Bunch.Tapjoy/faq/WLX244 (This link is being provided for information/ educational purposes only.) Cytology specimen container (physical object) 12/23/2022 9:47 AM EST 12/24/2022 10:14 AM EST Jazmín Quevedo MD LAB PATHOLOGY ORDERABLES F inal Result [facility] [address] [facility], [place] [address] [facility] [address] [facility], ([address]) [place] [address] * Hepatitis C Viral RNA, Quantitative, Real-Time PC (10/02/2022 10:24 AM EST) Pathologist [facility] HCV RNA, QN Real Time PCR <15 NOT DETECTED NOT DETECTED IU/mL [employer] [facility] HCV RNA QN Real Time PCR <1.18 NOT DETECTED NOT DETECTED Log IU/mL [employer] [facility] Comment: This test was performed using Real-Time Polymerase Chain Reaction. Reportable Range: 15 IU/mL to 100,000,000 IU/mL (1.18 Log IU/mL to 8.00 Log IU/mL). ?? The analytical performance characteristics of this assay have been determined by [employer]. The modifications have not been cleared or approved by the FDA. This assay has been validated pursuant to the CLIA regulations and is used for clinical purposes. ?? For more information on this test, go to: http://education.Tapjoy/faq/IIT08n6 (This link is being provided for informational/ educational purposes only.) 10/02/2022 10:2 4 AM EST 10/02/2022 10:25 AM EST Narrative [facility] - 10/05/2022 2:27 PM EST FASTING:YES FASTING: YES us Jazmín Quevedo MD LAB BLOOD ORDERABLES Final Result [facility] [address], [place] [address] [employer] [facility] [address], ([address]) [place] [address] * HIV-1/2 Antigen and Antibodies, Fourth Generation, with Reflexes (10/02/2022 10:24 AM EST) Pathologist [facility] HIV Antigen/Antibody, 4th Generation NON-REAC TIVE NON-REAC TIVE [employer] [place] [facility] Comment: HIV-1 antigen and HIV-1/HIV-2 antibodies were [...] ?? For additional information please refer to http://Kid Bunch.Tapjoy/faq/LNH417 (This link is being provided for informational/ educational purposes only.) The performance of this assay has not been clinically validated in patients less than 2 years old. Blood Venous blood specimen / Unknown 10/02/2022 10:24 AM EST 10/02/2022 10:25 AM EST Narrative [facility] - 10/05/2022 2:27 PM EST FASTING:YES FASTING: YES us Jazmín Quevedo MD LAB BLOOD ORDERABLES Final Result [address], [place] [address] [employer] [place] [facility] [address] [facility], ([address]) [place] [address] * (ABNORMAL) Lipid Panel, Standard (10/02/2022 10:24 AM EST) Cholesterol, Total 173 <200 mg/dL [employer] [place] [facility] HDL Cholesterol 52 > OR = 50 mg/dL [employer] [place] [facility] Triglycerides 57 <150 mg/dL [employer] [place] [facility] LDL Cholesterol 107(H) mg/dL (calc) [employer] [place] [facility] Comment: Reference range: <100 Desirable range <100 mg/dL for primary prevention; ?? <70 mg/dL for patients with CHD or diabetic patients with > or = 2 CHD risk factors. LDL-C is now calculated using the Denise calculation, which is a validated novel method providing better accuracy than the Friedewald equation in the estimation of LDL-C. Kenrick GARCIA et al. CAYETANO. 2013;310(19): 5493-3890 (http://education.[employer] Solar.Sgnam/faq/LPR573) Chol/HDLC Ratio 3.3 <5.0 (calc) [facility] Non-HDL Cholesterol 121 <130 mg/dL (calc) [facility] Comment: For patients with diabetes plus 1 major ASCVD risk factor, treating to a non-HDL-C goal of <100 mg/dL (LDL-C of <70 mg/dL) is considered a therapeutic option. Blood Venous blood specimen / Unknown 10/02/2022 10:24 AM EST 10/02/2022 10:25 AM EST Narrative [facility] - 10/05/2022 2:27 PM EST FASTING:YES FASTING: YES us Jazmín Quevedo MD LAB BLOOD ORDERABLES Final Result [facility] [address] [facility], [place] [address] [employer] [place] [employer] [address] [facility], ([address]) [place] [address] from Last 3 Months or Most Recently Relevant to Health Maintenance Insurance [employer] C3 Care Teams Retail Office Associate Relationship Specialty Start Date End Date Sae, MD Jazmín [address] [place] [address] PCP - General Family Medicine 10/20/18
== END 2025-03-21 09:39 | disposition home or self-care (01) ==
LOC: HO.PMC 08:56
PROVIDERS: PCP Family Medicine; Referring Provider Emergency Medicine; Visit Provider Nurse Practitioner Family
DX: M47.817 Spondylosis without myelopathy or radiculopathy, lumbosacral region (principal); M54.41 Lumbago with sciatica, right side; G89.29 Other chronic pain; Q76.49 Other congenital malformations of spine, not associated with scoliosis; M51.369 Other intervertebral disc degeneration, lumbar region without mention of lumbar back pain or lower extremity pain; M54.16 Radiculopathy, lumbar region; M53.3 Sacrococcygeal disorders, not elsewhere classified; F17.200 Nicotine dependence, unspecified, uncomplicated
CPT/HCPCS: 99204

== ENCOUNTER → 2025-03-21 08:56 | Outpatient (BNVA) | payer MEDICAID, SELFPAY | PROVIDERS: PCP Family Medicine; Referring Provider Emergency Medicine; Visit Provider Nurse Practitioner Family | DX: M47.817 Spondylosis without myelopathy or radiculopathy, lumbosacral region (principal); M54.41 Lumbago with sciatica, right side; M51.369 Other intervertebral disc degeneration, lumbar region without mention of lumbar back pain or lower extremity pain; M54.16 Radiculopathy, lumbar region; M53.3 Sacrococcygeal disorders, not elsewhere classified; G89.29 Other chronic pain; Q76.49 Other congenital malformations of spine, not associated with scoliosis; F17.210 Nicotine dependence, cigarettes, uncomplicated | CPT/HCPCS: 99212 ==

== ENCOUNTER → 2025-03-24 19:03 | Outpatient (BNV) | payer MEDICAID, SELFPAY | PROVIDERS: PCP Family Medicine; Visit Provider Radiology Diagnostic Radiology | DX: M51.26 Other intervertebral disc displacement, lumbar region (principal) | CPT/HCPCS: 72148 ==

== ENCOUNTER 2025-03-24 19:13 | Outpatient (REF) | payer MEDICAID, SELFPAY ==
--- NOTE | ~2025-03-24 | MR_ITS ---
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 MR lumbar spine without gadolinium Comparison: None Findings: Bony alignment of the lumbar vertebral bodies is anatomic. No fracture or concerning bone marrow signal alteration. The conus terminates at T12-L1. No abnormal signal intensity identified within the conus medullaris. No retroperitoneal mass lesions identified. There is a 5 mm simple cyst within the right kidney. No enlarged lymph nodes within the field of view. Segmental analysis: L1-2: Negative. L2-3: Mild disc desiccation with broad-based disc bulge and mild facet joint degenerative change. Central canal and neural foramina are patent. L3-4: Broad-based disc bulge with zmjl-en-npiqzdyc facet joint degenerative change. Central canal and neural foramina are patent. L4-5: Broad-based disc bulge with a superimposed right central disc extrusion. The extruded component measures 12 x 9 x 12 mm in size. This contacts and displaces the traversing right L5 nerve root. The right L4 nerve root has already exited. There is moderate facet joint degenerative change. L5-S1: No disc bulge or protrusion. Minor posterior osteophytic ridging. Moderate facet joint degenerative change. Central canal is patent. Mild left-sided and bjia-ti-fuscnhbg right-sided neural foraminal narrowing. IMPRESSION: Large right central disc extrusion at L4-5 with prominent mass effect upon the traversing right L5 nerve rootlet. Correlation with a right L5 radiculopathy is suggested. Spine surgical consultation suggested. This document has been electronically signed by: Meir Dozier MD on 03/25/2025 08:31:01
== END 2025-03-24 19:14 | disposition home or self-care (01) ==
LOC: HO.MRI 19:13
PROVIDERS: PCP Family Medicine; Visit Provider Nurse Practitioner Family
DX: Q76.49 Other congenital malformations of spine, not associated with scoliosis (principal); M47.817 Spondylosis without myelopathy or radiculopathy, lumbosacral region; M54.41 Lumbago with sciatica, right side; G89.29 Other chronic pain; M51.369 Other intervertebral disc degeneration, lumbar region without mention of lumbar back pain or lower extremity pain; M54.16 Radiculopathy, lumbar region
CPT/HCPCS: 72148

== ENCOUNTER 2025-03-28 09:11 | Outpatient (AMB) | payer MEDICAID, SELFPAY ==
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
--- OUTSIDE RECORDS SUMMARY | 2025-03-28 09:35 | XMS_ITS | Clinical Summary ---
Author Organization [employer] Address [address] [facility] [address] [place] [address] Care Team Providers Care Lecturer In Marketing Name Role Phone Jazmín Quevedo MD Primary Care Provider [phone] Allergies No known active allergies Medications SUMAtriptan [...] midline low back pain without sciatica Overview (03/25/2025): -seen in ER 12/09/24 X ray There is a prominent right transverse process of L5 joining the right S1 with the sclerosis and the articular surface. The last rib-bearing vertebra labeled T12 suggesting Castellvi type I sacralization. Endplate sclerosis and decreased intervertebral disc height at L5-S1. No acute cortical disruption or gross malalignment. No lytic or blastic lesions. Consider Bertolotti syndrome, right-sided. -MRI with pain management 03/25/25 IMPRESSION: Large right central disc extrusion at L4-5 with prominent mass effect upon the traversing right L5 nerve rootlet. Correlation with a right L5 radiculopathy is suggested. Spine surgical consultation suggested. Ganglion cyst 02/19/2024 Overview (02/19/2024): -seen by [...] 10/02/2022 Overview (10/02/2022): -Dx on exam 10/02/2022 -Gooding of elbow brace Assessment & Plan (10/02/2022 12:50 PM EST): -Dx on exam 10/02/2022 -Gooding of elbow brace Vitamin D deficiency 09/30/2022 [...] Encounters Date Type Department Care Team Description 03/25/2025 Results Follow-Up [facility] [address] [place] [address] Jazmín Quevedo MD MR Lumbar Spine w/o Contrast 03/24/2025 Orders Only [facility] External Provider, [facility] Acute midline low back pain without sciatica (Primary Dx) 03/10/2025 Refill [facility] [address] [place] [phone] Yeison Franklin MD 03/04/2025 Telephone [facility]ALKIN [address] [address] Yeison Franklin MD 03/03/2025 Population Health Risk Score [facility] () [address] [phone] Provider, Population Health Generic 03/01/2025 10:40 AM EDT Office Visit [facility] WALK-IN [address] [address] Yeison Franklin MD Right flank pain (Primary Dx); Posterior chest pain; Chronic right-sided low back pain with right-sided sciatica 03/01/2025 Telephone [facility] [address] [address] Yeison Franklin MD 01/07/2025 Telephone [facility] [address] [place] [phone] Jazmín Quevedo MD mammography appoinment from Last [...] Description 04/29/2025 10:00 AM EDT Office Visit [facility] [address] [place] [address] Jazmín Quevedo MD [address] [place] [address] Health Maintenance Due Date Last Done Comments [...] Procedure Name Priority Date/Time Associated Diagnosis Comments MR LUMBAR SPINE WO CONTRAST Routine 03/25/2025 8:31 AM EDT XR CHEST 2 VIEWS Routine 03/01/2025 4:00 [...] Recently Relevant to Health Maintenance Results * MR Lumbar Spine w/o Contrast (03/25/2025 8:31 AM EDT) Anatomical Region Laterality Modality Spine, L-spine Magnetic Resonan ce 03/25/2025 8:31 AM EDT Narrative 03/25/2025 8:32 AM EDT ? [facility] ?[address] ?[place] [address] ? Magnetic Resonance Report ? Signed with Addenda ? Patient: Minal Rodriguez ?MR#: [id number] ?? 32 ? : 1985 ?Acct:[id number] ? Age/Sex: 40 / F ?ADM Date: 03/24/25 ? Loc: HO.MRI ? Attending Dr: Celena Brand BOX TOE BUFFER ? Ordering Physician: Celena Brand ?? Date of Service: 03/24/25 ?? Procedure(s): MR lumbar spine wo con ?? Accession Number(s): [id number] ? cc: Jazmín Quevedo MD; Celena Brand BOX TOE BUFFER ?ADDENDUM ?? This document has been electronically signed by: Meir Dozier MD on ?? 03/25/2025 08:31:01 ? ADDENDUM: ?? Receipt of this report by the clinical staff was confirmed with Tonia ?? Herbert regional vice president surgical sales on Mar 25, 2025 10:36:00 EDT. ? This document has been electronically signed by: Eboni Gomes on ?? 03/25/2025 10:36:57 ? Addendum Dictated By: ?Meir Dozier MD ? Addendum Signed By: ? <Electronically signed by Meir Dozier MD in OV> ? 03/25/25 1038 ?? Addendum Cosigned By: ? DD/ /13/831 ? TD/TT: 03/25/2504/13/1036 ? 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 ? MR lumbar spine without gadolinium ? Comparison: None ? Findings: ?? Bony alignment of the lumbar vertebral bodies is anatomic. ?? No fracture or concerning bone marrow signal alteration. ?? The conus terminates at T12-L1. No abnormal signal intensity identified ?? within the conus medullaris. ?? No retroperitoneal mass lesions identified. ?? There is a 5 mm simple cyst within the right kidney. ?? No enlarged lymph nodes within the field of view. ? Segmental analysis: ? L1-2: Negative. ?? L2-3: Mild disc desiccation with broad-based disc bulge and mild facet ?? joint degenerative change. Central canal and neural foramina are patent. ?? L3-4: Broad-based disc bulge with yayk-mt-nppayqib facet joint ?? degenerative change. Central canal and neural foramina are patent. ?? L4-5: Broad-based disc bulge with a superimposed right central disc ?? extrusion. The extruded component measures 12 x 9 x 12 mm in size. This ?? contacts and displaces the traversing right L5 nerve root. The right L4 ?? nerve root has already exited. ?? There is moderate facet joint degenerative change. ?? L5-S1: No disc bulge or protrusion. Minor posterior osteophytic ridging. ?? Moderate facet joint degenerative change. Central canal is patent. Mild ?? left-sided and qozf-gn-yrcbohhq right-sided neural foraminal narrowing. ? IMPRESSION: ?? Large right central disc extrusion at L4-5 with prominent mass effect upon ?? the traversing right L5 nerve rootlet. Correlation with a right L5 ?? radiculopathy is suggested. Spine surgical consultation suggested. ? This document has been electronically signed by: Meir Dozier MD on ?? 03/25/2025 08:31:01 ? Dictated By: ?Meir Dozier MD ? Signed By: ?<Electronically signed by Meir Dozier MD in OV> ? 03/25/25830 ? DD/ 0 ? TD/TT: 03/25/25830 ? Public Relations Intern: ? Procedure Note Tonie, Image - 03/25/[address] [address] Magnetic Resonance Report Signed with Hollieenda Patient: Perri RodrigueznMR#: [id number] 32 : 1985Acct:[id number] Age/Sex: 40 / FADM Date: 03/24/25 Loc: HO.MRI Attending Dr: Celena HERBERT Ordering Physician: Celena Brand Date of Service: 03/24/25 Procedure(s): MR lumbar spine wo con Accession Number(s): [id number] cc: Jazmín Quevedo MD; Buchachiy,Celena BOX TOE BUFFER ADDENDUM This document has been electronically signed by: Meir Dozier MD on 03/25/2025 08:31:01 ADDENDUM: Receipt of this report by the clinical staff was confirmed with Tonia Godinez, regional vice president surgical sales on Mar 25, 2025 10:36:00 EDT. 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 MR lumbar spine without gadolinium Comparison: None Findings: Bony alignment of the lumbar vertebral bodies is anatomic. No fracture or concerning bone marrow signal alteration. The conus terminates at T12-L1. No abnormal signal intensity identified within the conus medullaris. No retroperitoneal mass lesions identified. There is a 5 mm simple cyst within the right kidney. No enlarged lymph nodes within the field of view. Segmental analysis: L1-2: Negative. L2-3: Mild disc desiccation with broad-based disc bulge and mild facet joint degenerative change. Central canal and neural foramina are patent. L3-4: Broad-based disc bulge with evgr-fd-sofludei facet joint degenerative change. Central canal and neural foramina are patent. L4-5: Broad-based disc bulge with a superimposed right central disc extrusion. The extruded component measures 12 x 9 x 12 mm in size. This contacts and displaces the traversing right L5 nerve root. The right L4 nerve root has already exited. There is moderate facet joint degenerative change. L5-S1: No disc bulge or protrusion. Minor posterior osteophytic ridging. Moderate facet joint degenerative change. Central canal is patent. Mild left-sided and qero-wk-oybvtnfy right-sided neural foraminal narrowing. IMPRESSION: Large right central disc extrusion at L4-5 with prominent mass effect upon the traversing right L5 nerve rootlet. Correlation with a right L5 radiculopathy is suggested. Spine surgical consultation suggested. This document has been electronically signed by: Meir Dozier MD on 03/25/2025 08:31:01 Dictated By: Meir Dozier MD Signed By: <Electronically signed by Meir Dozier MD in OV> 03/25/25830 DD/ 0 TD/TT: 03/25/25830 Public Relations Intern: [facility] External Provider IMG MRI PROCEDURES Edited Result - Final * XR Chest 2 Views (03/01/2025 4:00 PM EDT) Anatomical Region Laterality Modality Chest Radiographic Heather ging 03/01/2025 4:00 PM EDT Narrative 03/01/2025 4:01 PM EDT ? [facility] ?[address] ?[place] [address] ?XRay Report ? Signed ? Patient: Rodriguez,Minal ?MR#: [id number] ?? 32 ? : 1985 ?Acct:[id number] ? Age/Sex: 40 / F ?ADM Date: 03/01/25 ? Loc: HO.XRAY ? Attending Dr: Yeison Franklin MD ? Ordering Physician: YEISON FRANKLIN MD ?? Date of Service: 03/01/25 ?? Procedure(s): XR chest 2V ?? Accession Number(s): [id number] ? cc: YEISON FRANKLIN MD; Jazmín Quevedo [...] DD/ 1600 ? TD/TT: 03/01/25 1600 ? Public Relations Intern: ? Procedure Note Faith Schilling - 03/01/2025 [facility] [address] [place] [address] XRay Report Signed Patient: Trinidad Rodriguez#: [id number] 32 : 1985Acct:[id number] Age/Sex: 40 / FADM Date: 03/01/25 Loc: XRAY Attending Dr: Yeison Franklin MD Ordering Physician: YEISON FRANKLIN MD Date of Service: 03/01/25 Procedure(s): XR chest 2V Accession Number(s): [id number] cc: YEISON FRANKLIN MD; Jazmín Quevedo MD [...] 03/01/25 1601 DD/ 1600 TD/TT: 03/01/25 1600 Public Relations Intern: Yeison Franklin MD IMG XR PROCEDURES Final Result * (ABNORMAL) POCT urinalysis dipstick manually resulted (03/01/2025 1:13 PM EDT) Pathologist [facility] Color, UA Yellow Clarity, UA Clear Glucose, UA Negative Bilirubin, UA Negative Ketones, UA Negative Spec Grav, UA 1.020 Blood, UA Positive(A) Negative, None Detected Comment:moderate pH, UA 6.0 Protein, UA Few 15 Comment:30 mg/dL Urobilinogen, UA 0.2 Leukocytes, UA Moderate(A) Negative, Rare, Trace Nitrite, UA Positive(A) Negative, None Detected Urine 03/01/2025 1:13 PM EDT Yeison Franklin MD POINT OF CARE TEST ENTER/EDIT OR DERABLES Final Result * D Dimer High Sensitivity (03/01/2025 12:38 PM EDT) Pathologist [facility] D Dimer High Sensitivity 234 NG/ML [facility] Comment:D-DIMER HS REFERENCE RANGENote: Our [...] MD LAB BLOOD ORDERABLES Final Resul t Performing Organization Address City/[facility]/ZIP Co de Phone Number [facility] [address] [place] [phone] * Culture, Urine, Routine (03/01/2025 11:58 AM EDT) Urine Urine specimen obtained by clean catch procedure / Unknown 03/01/2025 11:58 AM EDT 03/01/2025 4:10 PM EDT Comment:UACC Narrative [facility] - 03/03/2025 7:45 AM EDT Escherichia coli Quant > 100,000 cfu/mL Escherichia coli: Ampicillin <=2(S) Escherichia coli: Cefazolin (Urine) <=1(S) Escherichia coli: Cefepime <=0.12(S) Escherichia coli: Ceftriaxone <=0.25(S) Escherichia coli: Ciprofloxacin <=0.06(S) Escherichia coli: Gentamicin <=1(S) Escherichia coli: Nitrofurantoin <=16(S) Escherichia coli: Trimethoprim/Sulfamethoxazole <=20(S) Specimen Source: Urine clean catch us Yeison Franklin MD LAB MICROBIOLOGY - GENERAL ORDER FEDERICO Final Result Performing Organization Address [facility] Co de Phone Number [facility] [address] [place] [phone] * BI Mammogram Diagnostic Tomosynthesis Right (12/26/2023 1:15 PM EST) Anatomical Region Laterality Modality Breast Right Mammography 12/26/2023 1:15 PM EST Narrative 12/26/2023 1:52 PM EST ? [facility] ? [address] ?[place] [address] ? Mammography Report ? Signed with Addenda ? Patient: Rodriguez,Minal ?MR#: [id number] ?? 32 ? : 1985 ?Acct:[id number] ? Age/Sex: 38 / F ?ADM Date: 12/26/23 ? Loc: HO.MAMMO ? Attending Dr: Jazmín Quevedo MD ? Ordering Physician: Jazmín Quevedo MD ? Results: 3.12MProbably Benign Finding - 12 month F/U ?? Suggested ? Date of Service: 12/26/23 ?Follow Up: 12 month diagnos ?? tic follow up ? Procedure(s): MM tomosynthesis diagnostic RT ?? Accession Number(s): [id number] ? cc: Jazmín Quevedo MD ?ADDENDUM ?? [...] signed by Torrey Rios MD in OV> ?12/29/2325 ?? Addendum Cosigned By: ? DD/ /12/1300 [...] 1348 ? DD/ 1315 ? TD/TT: ? Public Relations Intern: ? Procedure Note Donotlulúinterpreter, Image - 12/29/2023 [facility] [address] [place], [place] [address] Mammography Report Signed with Glenn Patient: Trinidad Rodriguez#: [id number] 32 : 1985Acct:[id number] Age/Sex: 38 / FADM Date: 12/26/23 Loc: HO.MAMMO Attending Dr: Jazmín Quevedo MD Ordering Physician: Jazmín Quevedo MD Results: 3.12MProbably Benign Finding - 12 month F/U Suggested Date of Service: 12/26/23Follow Up: 12 month diagnos tic follow up Procedure(s): MM tomosynthesis diagnostic RT Accession Number(s): [id number] cc: Jazmín Quevedo MD ADDENDUM ADDENDUM: Typographical [...] by Torrey Rios MD in OV> 12/29/23 0825 Addendum Cosigned By: DD/ /12/1300 TD/TT: / [...] in OV> 12/26/23 1348 DD/ 1315 TD/TT: Public Relations Intern: us Jazmín Quevedo MD IMG BI PROCEDURES Edited R esult - Final * Thinprep PAP, HPV mRNA E6/E7 RFX HPV 16,18/45, Chlamydia/N. Gonorrhoeae (12/23/2022 9:47 AM EST) Clinical Information: NO HX ABNORMAL PAPS Assurely Diagnost LMP: NONE GIVEN Real Matterst Prev. PAP: NONE GIVEN Assurely Diagnost Prev. BX: NO Real Matterst SOURCE: None given Real Matterst Statement Of Adequacy: [employer] Comment: Satisfactory for evaluation. Endocervical/transformation zone component present. Interpretation/Re sult: Negative for intraepithelial lesion or malignancy. [employer] Casket Upholsterer: Ivana [facility] [employer] Comment: RXB, CT(ASCP) CT screening location: [address] ??[address] (Always Message) [facility] Comment: EXPLANATORY NOTE: The Pap is a [...] HPV nRNA E6/E7 Not Detected Not Detected [employer] Comment: Methodology: Computer Game Designer-Mediated Amplification This assay detects E6/E7 viral messenger RNA (mRNA) from 14 high-risk HPV types (16,18,31,33,35,39,45,51,52,56,58,59,66,68). Cervical sources are required for HPV testing. If a vaginal source from a patient who has had a total hysterectomy with removal of cervix was submitted, please contact the testing laboratory for alternative testing options. For additional information, please refer to http://education.ClrTouch/faq/FNA829x7 (This link if provided for information/ educational purposes only.) Chlamydia trachomatis RNA, TMA, Urogenital NOT DETECTED NOT DETECTED Real [facility] Neisseria gonorrhoeae RNA, TMA, Urogenital NOT DETECTED NOT DETECTED [employer] (Always Message) [facility] Comment: The analytical performance characteristics of this assay, when used to test SurePath(TM) specimens have been determined by [facility]. The modifications have not been cleared or approved by the FDA. This assay has been validated pursuant to the CLIA regulations and is used for clinical purposes. For additional information, please refer to https://Vibby.ClrTouch/faq/YDZ316 (This link is being provided for information/ educational purposes only.) Cytology specimen container (physical object) 12/23/2022 9:47 AM EST 12/24/2022 10:14 AM EST Jazmín Quevedo MD LAB PATHOLOGY ORDERABLES F inal Result [address], [facility], [place] [address] [facility] [place] [employer] [address] [facility], ([address]) [place] [address] * Hepatitis C Viral RNA, Quantitative, Real-Time PC (10/02/2022 10:24 AM EST) HCV RNA, QN Real Time PCR <15 NOT DETECTED NOT DETECTED IU/mL [facility] [place] [facility] HCV RNA QN Real Time PCR <1.18 NOT DETECTED NOT DETECTED Log IU/mL [facility] Comment: This test was performed using Real-Time Polymerase Chain Reaction. Reportable Range: 15 IU/mL to 100,000,000 IU/mL (1.18 Log IU/mL to 8.00 Log IU/mL). ?? The analytical performance characteristics of this assay have been determined by [facility]. The modifications have not been cleared or approved by the FDA. This assay has been validated pursuant to the CLIA regulations and is used for clinical purposes. ?? For more information on this test, go to: http://education.ClrTouch/faq/UWX00s9 (This link is being provided for informational/ educational purposes only.) 10/02/2022 10:2 4 AM EST 10/02/2022 10:25 AM EST Narrative [facility] - 10/05/2022 2:27 PM EST FASTING:YES FASTING: YES Jazmín Quevedo MD LAB BLOOD ORDERABLES Final Result Performing Organization Address City/[facility]/ZIP Co de Phone Number [facility] [address] [place] [address] [facility] [place] [facility] [address] [facility], ([address]) [place] [address] * HIV-1/2 Antigen and Antibodies, Fourth Generation, with Reflexes (10/02/2022 10:24 AM EST) HIV Antigen/Antibody, 4th Generation NON-REAC TIVE NON-REAC TIVE [facility] [place] [facility] Comment: HIV-1 antigen and HIV-1/HIV-2 antibodies were [...] ?? For additional information please refer to http://education.ClrTouch/faq/PXI317 (This link is being provided for informational/ educational purposes only.) The performance of this assay has not been clinically validated in patients less than 2 years old. Blood Venous blood specimen / Unknown 10/02/2022 10:24 AM EST 10/02/2022 10:25 AM EST Narrative [facility] - 10/05/2022 2:27 PM EST FASTING:YES FASTING: YES Jazmín Quevedo MD LAB BLOOD ORDERABLES Final Result Performing Organization Address City/[facility]/ZIP Co de Phone Number [facility] [address] [place] [address] [facility] [place] [facility] [address] [facility], ([address]) [place] [address] * (ABNORMAL) Lipid Panel, Standard (10/02/2022 10:24 AM EST) Cholesterol, Total 173 <200 mg/dL [facility] HDL Cholesterol 52 > OR = 50 mg/dL [facility] [place] [facility] Triglycerides 57 <150 mg/dL [facility] LDL Cholesterol 107(H) mg/dL (calc) [facility] [place] [facility] Comment: Reference range: <100 Desirable range <100 mg/dL for primary prevention; ?? <70 mg/dL for patients with CHD or diabetic patients with > or = 2 CHD risk factors. LDL-C is now calculated using the Denise calculation, which is a validated novel method providing better accuracy than the Friedewald equation in the estimation of LDL-C. Kenrick SS et al. CAYETANO. 2013;310(19): 0331-0522 (http://education.MeetMoi/faq/XHT878) Chol/HDLC Ratio 3.3 <5.0 (calc) [facility] Non-HDL Cholesterol 121 <130 mg/dL (calc) [facility] Comment: For patients with diabetes plus 1 major ASCVD risk factor, treating to a non-HDL-C goal of <100 mg/dL (LDL-C of <70 mg/dL) is considered a therapeutic option. Blood Venous blood specimen / Unknown 10/02/2022 10:24 AM EST 10/02/2022 10:25 AM EST Narrative [facility] - 10/05/2022 2:27 PM EST FASTING:YES FASTING: YES Jazmín Quevedo MD LAB BLOOD ORDERABLES Final Result [facility] [address] [facility], [facility], [place] [address] [facility] [address] [facility], ([address]) [place] [address] from Last 3 Months or Most Recently Relevant to Health Maintenance Insurance [facility] C3 Care Teams Lecturer In Marketing Relationship Specialty Start Date End Date [place], [place] Jazmín [address] [place] [phone] PCP - General Family Medicine 10/20/18
== END 2025-03-28 10:10 | disposition home or self-care (01) ==
LOC: HO.HNS 09:12
PROVIDERS: PCP Family Medicine; Referring Provider Nurse Practitioner Family; Visit Provider Physician Assistant
DX: M51.16 Intervertebral disc disorders with radiculopathy, lumbar region (principal)
CPT/HCPCS: 99204

== ENCOUNTER → 2025-03-28 09:11 | Outpatient (BNVA) | payer MEDICAID, SELFPAY | PROVIDERS: PCP Family Medicine; Referring Provider Nurse Practitioner Family; Visit Provider Physician Assistant | DX: M51.16 Intervertebral disc disorders with radiculopathy, lumbar region (principal) | CPT/HCPCS: 99212 ==

== ENCOUNTER 2025-04-27 10:09 | Outpatient (REF) | payer MEDICAID, SELFPAY ==
--- OUTSIDE RECORDS SUMMARY | 2025-04-27 10:54 | XMS_ITS | Clinical Summary ---
Author Organization [facility] Address [address] [facility] [address] [place] [address] Care Team Providers Care Stay Cutter Name Role Phone Jazmín Quevedo MD Primary Care Provider [phone] Ar Adams Unavailable [phone] Allergies No known active allergies Medications SUMAtriptan (Imitrex) 25 MG tablet Take 1 tablet by mouth if needed each day. 07/31/20 025 Discontinued(Me d list cleanup (will not trigger notification to Pharmacy)) topiramate (Topamax) 25 MG tablet Take 25 mg by mouth at bedtime. 07/31/20 025 Discontinued(Me d list cleanup (will not trigger notification to Pharmacy)) cyclobenzaprin e (Flexeril) 5 MG tablet Take 1 tablet by mouth if needed at bedtime for pain. 09/06/20 025 Discontinued(Me d list cleanup (will not trigger notification to Pharmacy)) ondansetron (Zofran) 4 MG tablet Take 1 tablet by mouth. When migraine comes with nausea, up to three times a day as needed 09/06/20 025 Discontinued(Me d list cleanup (will not trigger notification to Pharmacy)) amitriptyline (Elavil) 25 MG tablet Take 25 mg by mouth at bedtime. 01/07/20 025 Discontinued(Me d list cleanup (will not trigger notification to Pharmacy)) Benzocaine 15 MG lozengeIndicat ions:Acute viral syndrome Dissolve 15 mg in the mouth Every 4-6 hours as needed (sore throat). 100 lozenge 07/11/20 23 025 Discontinued baclofen (Lioresal) 10 MG tablet Take 1 tablet (10 mg) by mouth every 8 (eight) hours if needed for muscle spasms. 90 tablet 07/19/20 24 025 Discontinued(Me d list cleanup (will not trigger notification to Pharmacy)) Active Problems Problem Noted Date Diagnosed Date Tobacco dependence 03/01/2025 Overview (04/27/2025): -Cigg/day: 3-5 cigarettes/day -Age started: 13 -Total years smokin -Pack year history: Encouraged smoking cessation resources such as pharmacomtherapy, [facility] smoking cessation group, and [facility] pharmacy smoking cessation clinic Discussed USPSTF recommends annual lung cancer screening with low dose CT in people who meet the following criteria: -ages 50 to 80 years. -have a 20 pack-year smoking history. -currently smoke cigarettes or quit within the past 15 years. -LDCT: Assessment & Plan (04/27/2025 10:29 AM EDT): -Cigg/day: 3-5 cigarettes/day -Age started: 13 -Total years smokin -Pack year history: Encouraged smoking cessation resources such as pharmacomtherapy, [facility] smoking cessation group, and [facility] pharmacy smoking cessation clinic Discussed USPSTF recommends annual lung cancer screening with low dose CT in people who meet the following criteria: -ages 50 to 80 years. -have a 20 pack-year smoking history. -currently smoke cigarettes or quit within the past 15 years. -LDCT: Posterior chest pain 03/01/2025 Acute midline low back pain without sciatica Overview (04/27/2025): -seen in ER 12/09/24 X ray There [...] by Dr. Turpin, neurosurgeon, plan for surgery -Surgery scheduled for 04/28/25 Assessment & Plan (04/27/2025 10:29 AM EDT): -seen in ER 12/09/24 X ray There [...] by Dr. Turpin, neurosurgeon, plan for surgery -Surgery scheduled for 04/28/25 Orders: Basic Metabolic Panel; Future CBC auto differential; Future Ganglion cyst 02/19/2024 Overview (02/19/2024): -seen by [...] will follow up when completed for review Other specified health status 05/01/2023 Overview (04/27/2025): -next comprehensive annual evaluation due after 04/27/26 -eye care facilitated by Joannealton -dental home is [facility] -health care proxy given and filed 04/27/25 Assessment & Plan (04/27/2025 10:29 AM EDT): -next comprehensive annual evaluation due after 04/27/26 -eye care facilitated by Cassidy -dental home is [facility] -health care proxy given and filed 04/27/25 Palpitations 12/23/2022 Overview (05/01/2023): Seen by cardiology [...] in past, will check MRI and labs. Right tennis elbow 10/02/2022 Overview (10/02/2022): -Dx on exam 10/02/2022 -Taylor of elbow brace Assessment & Plan (10/02/2022 12:50 PM EST): -Dx on exam 10/02/2022 -Taylor of elbow brace Vitamin D deficiency 09/30/2022 Overview (04/27/2025): No results found for: [id number] -ordered Vit D level 04/27/25 Assessment & Plan (04/27/2025 10:29 AM EDT): -ordered Vit D level 04/27/25 Orders: Vitamin D, 25-Hydroxy, Total, Immunoassay; Future Cobalamin deficiency 01/03/2022 Resolved Problems Problem Noted [...] discussed -supportive care discussed -ER precautions given Midline low back pain 10/02/20222024 Migraine 09/30/2022 10/02/2022 Encounters Date Type Department Care Team Description 04/27/2025 9:45 AM EDT Office Visit [facility] MEDICINE [address] [place] [phone] Jazmín Quevedo MD Acute midline low back pain without sciatica (Primary Dx); Vitamin D deficiency; Tobacco dependence; Class 1 obesity due to excess calories without serious comorbidity with body mass index (BMI) of 33.0 to 33.9 in adult; Dietary counseling; Exercise counseling; Screening cholesterol level; Routine screening for STI (sexually transmitted infection); Other specified health status 04/27/2025 Travel 04/26/[address] [facility] MEDICINE [address] [place] [phone] Jazmín Quevedo MD CHART PREP 04/20/2025 Travel 04/19/2025 Patient Outreach [facility] CHC MED & PEDS [address] [place], [place] [phone] Jazmín Quevedo MD Pre-visit Planning (SDOH negative, Tobacco screening positive. ) 03/25/2025 Results Follow-Up [facility] MEDICINE [address] [place] [phone] Jazmín Quevedo MD MR Lumbar Spine w/o Contrast 03/24/2025 Orders Only [facility] External Provider, [facility] Acute midline low back pain without sciatica (Primary Dx) 03/10/[address] [facility] WALK-IN CENTER [address] [place] [phone] Yeison Franklin MD 03/04/[address] [facility] WALK-IN CENTER [address] [place] [phone] Yeison Franklin MD 03/03/2025 Population Health Risk Score [facility] () [address] [address] Provider, Population Health Generic 03/01/2025 10:40 AM EDT Office Visit [facility] WALK-IN CENTER [address] [place] [phone] Yeison Franklin MD Right flank pain (Primary Dx); Posterior chest pain; Chronic right-sided low back pain with right-sided sciatica 03/01/[address] [facility] WALK[facility]IN [facility]ENTER [address] [place] [phone] Yeison Franklin MD from Last 3 Months [...] uit: Not Asked; Counseling Given: Not Answered Alcohol Answer Date Recorded How often do you have a drink containing alcohol ? 1 04/27/2025 How many drinks containing a lcohol do you have on a typical day when you are drinking? 1 04/27/2025 How often do you have six or more drinks on one occasion? 0 04/27/2025 Depression Answer Date Recorded Patient Health Questionnaire-9 Score 3 04/27/2025 Patient Health Questionnaire-9 Score 3 04/27/2025 Last PHQ-9: Questionnaire Data Not on file 0 04/27/2025 Housing Stability Answer Date Recorded What is your housing situation today? I have mayda blevins 04/19/[address] you li ve. Do you have problems with any of the following? None of the above 04/19/2025 Food Insecurity Answer Date Recorded Within the past 12 months, y ou worried that your food would run out before you got money to buy more: Never True 04/19/2025 Within the past 12 months,th e food you bought just didn't last and you didn't have enough money to get more: Never True 10/2024 Transportation Answer Date Recorded In the past 12 months, has l ack of transportation kept you from medical appts, meetings, work or from getting things needed for daily living? No 04/19/2025 Utilities Answer Date Recorded In the past 12 months, has t he electric, gas, oil or water company threatened to shut off services in your home? No 04/19/2025 Depression Answer Date Recorded Patient Health Questionnaire-2 Score 0 04/27/2025 Internet Access Answer Date Recorded Internet Access Q1 Yes 04/19/2025 Internet Access Q2 Not on file 04/19/2025 Comments Unknown Intention Date Recorded No desire to become (finding) 0 04/27/2025 Sex and Gender Information Value Date Recorded Sex Assigned at Female 08/19/2022 10:19 AM EDT Legal Sex Female 10:19 AM EDT Gender Identity Female 08/19/2022 10:19 AM EDT Sexual Orientation Choose not to disclose 2022 8:18 AM EST Sexual Orientation Straight 12/23/2022 8: 18 AM EST Last Filed Vital Signs Vital Sign Reading Time Taken Comments Blood Pressure 100/68 04/27/2025 9:32 AM EDT Pulse 79 04/27/2025 9:32 AM EDT Temperature 36.3 C (97.3 F) 04/27/2025 9:32 AM EDT Respiratory Rate 21 04/27/2025 9:32 AM EDT Oxygen Saturation 100% 04/27/2025 9:32 AM EDT Inhaled Oxygen Concentration - - Weight 94.2 kg (207 lb 9.6 oz) 04/27/2025 9:32 A M EDT Height 162.6 cm (5' 4 ) 04/27/2025 9:32 AM EDT Body Mass Index 35.63 04/27/2025 9:32 AM EDT Plan of Treatment Health Maintenance Due Date Last Done Comments HPV Vaccines (1 - 3-dose series) 1998 Hepatitis B Vaccines (1 of 3 - 19+ 3-dose series) 2002 Pneumococcal Vaccine: Pediatrics (0 to 5 Years) and At-Risk Patients (6 to 49) Years (1 of 2 - PCV) 2002 COVID-19 Vaccine ( season) 2024 03/02/2021, 02/09/2021 Diagnostic Breast Imaging 12/25/2024 12/26/2023, Mammogram 01/17/2025 12/26/2023, 06/20, 06/11/2023 Influenza Vaccine (#1) 2025 , 09/26/2020, 09/09/2019, Additional history exists SDOH Screening 04/19/2026 04/19/2025 Alcohol/Substance Use Screening 04/27/2026 04/27/2025 Depression Screening 04/27/2026 04/27/2025, 04/27/20 25 Disability Screening 04/27/2026 04/27/2025 Family Planning (PISQ) 04/27/2026 04/27/2025 Tobacco Screening 04/27/2026 04/27/2025 Lipid Panel 10/02/2027 10/02/2022 Cervical Cancer Screening [...] AM EDT Narrative 03/25/2025 8:32 AM EDT [place] [address] Magnetic Resonance Report Signed with Addenda Patient: Minal Rodriguez MR#: [id number] 34 : 1985 Acct:[id number] Age/Sex: 40 / F ADM Date: 03/24/25 Loc: HO.MRI Attending Dr: Celena HERBERT Ordering Physician: Celena Brand Date of Service: 03/24/25 Procedure(s): MR lumbar spine wo con Accession Number(s): [id number] cc: Jazmín Quevedo MD; Celena Brand ADDENDUM This document has been electronically signed by: Meir Dozier MD on 03/25/2025 08:31:01 ADDENDUM: Receipt of this report by the clinical staff was confirmed with Tonia Godinez surgical technician on Mar 25, 2025 10:36:00 EDT. This [...] are patent. L3-4: Broad-based disc bulge with okyf-hg-xudngsgs facet joint degenerative change. Central canal and [...] Central canal is patent. Mild left-sided and fcqh-fk-pmctgycd right-sided neural foraminal narrowing. IMPRESSION: Large right [...] in OV> 03/25/25830 DD/ 0 TD/TT: 03/25/25830 [place] Maker: Procedure Note Donotuseinterpreter, Image - 03/25/[address] [address] Magnetic Resonance Report Signed with Glenn Patient: Perri RodriguezElíasWashington#: [id number] 34 : 1985Acct:[id number] Age/Sex: 40 / FADM Date: 03/24/25 Loc: HO.MRI Attending Dr: Celena HERBERT Ordering Physician: Celena Brand Date of Service: 03/24/25 Procedure(s): MR lumbar spine wo con Accession Number(s): [id number] cc: Jazmín Quevedo MD; Celena Brand ADDENDUM This document has been electronically signed by: Meir Dozier MD on 03/25/2025 08:31:01 ADDENDUM: Receipt of this report by the clinical staff was confirmed with Tonia Godinez surgical technician on Mar 25, 2025 10:36:00 EDT. This [...] are patent. L3-4: Broad-based disc bulge with iosb-ld-unoqlbgz facet joint degenerative change. Central canal and [...] Central canal is patent. Mild left-sided and kdmz-rq-gxrawtyy right-sided neural foraminal narrowing. IMPRESSION: Large right [...] 03/25/25 0831 DD/ 0831 TD/TT: 03/25/25 0831 [place] Maker: [facility] External Provider IMG MRI PROCEDURES Edited Result - Final * XR Chest 2 Views (03/01/2025 4:00 PM EDT) Anatomical Region Laterality Modality Chest Radiographic Heather ging 03/01/2025 4:00 PM EDT Narrative 03/01/2025 4:01 PM EDT [place] [address] XRay Report Signed Patient: Minal Rodriguez MR#: [id number] 34 : 1985 Acct:[id number] Age/Sex: 40 / F ADM Date: 03/01/25 Loc: [facility] Attending Dr: Yeison Franklin MD Ordering Physician: YEISON FRANKLIN MD Date of Service: 03/01/25 Procedure(s): XR chest 2V Accession Number(s): [id number] cc: YEISON FRANKLIN MD; Jazmín Quevedo MD [...] 03/01/25 1601 DD/ 1600 TD/TT: 03/01/25 1600 [place] Maker: Procedure Note Donotuseinterpreter, Image - 03/01/[address] [address] XRay Report Signed Patient: Trinidad Rodriguez#: [id number] 32 : 1985Acct:[id number] Age/Sex: 40 / FADM Date: 03/01/25 Loc: HO.XRAY Attending Dr: Yeison Franklin MD Ordering Physician: YEISON FRANKLIN MD Date of Service: 03/01/25 Procedure(s): XR chest 2V Accession Number(s): [id number] cc: YEISON FRANKLIN MD; Jazmín Quevedo MD [...] 03/01/25 1601 DD/ 1600 TD/TT: 03/01/25 1600 Bologna Maker: us Yeison Franklin MD IMG XR PROCEDURES [...] EDT) D Dimer High Sensitivity 234 NG/ML [facility] Comment:D-DIMER HS REFERENCE RANGENote: Our [...] ORDERABLES Final Resul t Performing Organization Address [facility] Co de Phone Number [facility] [address] [place] [phone] * Culture, Urine, Routine (03/01/2025 11:58 AM EDT) Urine Urine specimen obtained by clean catch procedure / Unknown 03/01/2025 11:58 AM EDT 03/01/2025 4:10 PM EDT Comment:UACC Narrative [facility] - 03/03/2025 7:45 AM EDT [...] ORDER FEDERICO Final Result Performing Organization Address [facility] Co de Phone Number [facility] [address] [place] [phone] * BI Mammogram Diagnostic Tomosynthesis Right (12/26/2023 1:15 PM EST) Anatomical Region Laterality Modality Breast Right Mammography 12/26/2023 1:15 PM EST Narrative 12/26/2023 1:52 PM EST [facility] [address] [place], [place] [address] Mammography Report Signed with Glenn Patient: Minal Rodriguez MR#: [id number] 34 : 1985 Acct:[id number] Age/Sex: 38 / F ADM Date: 12/26/23 Loc: HO.MAMMO Attending Dr: Jazmín Quevedo MD Ordering Physician: Jazmín Quevedo MD Results: 3.12MProbably Benign Finding - 12 month F/U Suggested Date of Service: 12/26/23 Follow Up: 12 month diagnos tic follow up Procedure(s): MM tomosynthesis diagnostic RT Accession Number(s): [id number] cc: Jazmín Quevedo MD ADDENDUM ADDENDUM: Typographical [...] in OV> 12/26/23 1348 DD/ 1315 TD/TT: [place] Maker: Procedure Note Donotuseinterpreter, Image - 12/29/2023 [facility] [address] [place] [address] [place] [address] Mammography Report Signed with Glenn Patient: Perri RodriguezORR#: [id number] 34 : 1985Acct:[id number] Age/Sex: 38 / FADM Date: 12/26/23 Loc: HO.MAMMO Attending Dr: Jazmín Quevedo MD Ordering Physician: Jazmín Quevedo MD Results: 3.12MProbably Benign Finding - 12 month F/U Suggested Date of Service: 12/26/23Follow Up: 12 month diagnos tic follow up Procedure(s): MM tomosynthesis diagnostic RT Accession Number(s): [id number] cc: Jazmín Quevedo MD ADDENDUM ADDENDUM: Typographical [...] in OV> 12/26/23 1348 DD/ 1315 TD/TT: [place]olog[place] Maker: us Jazmín Quevedo MD IMG BI PROCEDURES Edited R esult - Final * Thinprep PAP, HPV mRNA E6/E7 RFX HPV 16,18/45, Chlamydia/N. Gonorrhoeae (12/23/2022 9:47 AM EST) Clinical Information: NO HX ABNORMAL PAPS [place] LMP: NONE GIVEN [place] Prev. PAP: NONE GIVEN [place] Prev. BX: NO get[employer]play Diagnost SOURCE: None given [place] Statement Of Adequacy: [employer] Comment: Satisfactory for evaluation. Endocervical/transformation zone component present. Interpretation/Re sult: Negative for intraepithelial lesion or malignancy. [place] Ladle Puller: [facility] Comment: RXB, CT(ASCP) CT screening location: [place] [address] (Always Message) [facility] Comment: EXPLANATORY NOTE: The Pap is a [...] HPV nRNA E6/E7 Not Detected Not Detected [employer] Comment: Methodology: Associate Dentist-Mediated Amplification This assay detects E6/E7 viral messenger RNA (mRNA) from 14 high-risk HPV types (16,18,31,33,35,39,45,51,52,56,58,59,66,68). Cervical sources are required for HPV testing. If a vaginal source from a patient who has had a total hysterectomy with removal of cervix was submitted, please contact the testing laboratory for alternative testing options. For additional information, please refer to http://HealthSouk.AmberAds/faq/LRI489r1 (This link if provided for information/ educational purposes only.) Chlamydia trachomatis RNA, TMA, Urogenital NOT DETECTED NOT DETECTED [employer] Neisseria gonorrhoeae RNA, TMA, Urogenital NOT DETECTED NOT DETECTED [employer] (Always Message) [facility] [employer] Comment: The analytical performance characteristics of this assay, when used to test SurePath(TM) specimens have been determined by [employer]. The modifications have not been cleared or approved by the FDA. This assay has been validated pursuant to the CLIA regulations and is used for clinical purposes. For additional information, please refer to https://HealthSouk.AmberAds/faq/QLD545 (This link is being provided for information/ educational purposes only.) Cytology specimen container (physical object) 12/23/2022 9:47 AM EST 12/24/2022 10:14 AM EST Jazmín Quevedo MD LAB PATHOLOGY ORDERABLES F inal Result [facility] [address], [place] [address] [employer] [address] [facility], ([address]) [place] [address] * Hepatitis C Viral RNA, Quantitative, Real-Time PC (10/02/2022 10:24 AM EST) HCV RNA, QN Real Time PCR <15 NOT DETECTED NOT DETECTED IU/mL [employer] HCV RNA QN Real Time PCR <1.18 NOT DETECTED NOT DETECTED Log IU/mL [employer] [place] [facility] Comment: This test was performed using Real-Time Polymerase Chain Reaction. Reportable Range: 15 IU/mL to 100,000,000 IU/mL (1.18 Log IU/mL to 8.00 Log IU/mL). The analytical performance characteristics of this assay have been determined by [employer]. The modifications have not been cleared or approved by the FDA. This assay has been validated pursuant to the CLIA regulations and is used for clinical purposes. For more information on this test, go to: http://[employer].AmberAds/faq/YIQ01m7 (This link is being provided for informational/ educational purposes only.) 10/02/2022 10:2 4 AM EST 10/02/2022 10:25 AM EST Narrative [facility] - 10/05/2022 2:27 PM EST FASTING:YES FASTING: YES Jazmín Quevedo MD LAB BLOOD ORDERABLES Final Result [facility] [address] [facility], [facility], [place] [address] [facility] [place] [facility] [address] [facility], ([address]) [place] [address] * HIV-1/2 Antigen and Antibodies, Fourth Generation, with Reflexes (10/02/2022 10:24 AM EST) HIV Antigen/Antibody, 4th Generation NON-REAC TIVE NON-REAC TIVE [facility] [place] [facility] Comment: HIV-1 antigen and HIV-1/HIV-2 antibodies were [...] purpose. For additional information please refer to http://[employer].AmberAds/faq/MCT937 (This link is being provided for informational/ educational purposes only.) The performance of this assay has not been clinically validated in patients less than 2 years old. Blood Venous blood specimen / Unknown 10/02/2022 10:24 AM EST 10/02/2022 10:25 AM EST Narrative [facility] - 10/05/2022 2:27 PM EST FASTING:YES FASTING: YES Jazmín Quevedo MD LAB BLOOD ORDERABLES Final Result [facility] [address] [facility], [facility], [place] [address] [facility] [place] [facility] [address] [facility], ([address]) [place] [address] * (ABNORMAL) Lipid Panel, Standard (10/02/2022 10:24 AM EST) Cholesterol, Total 173 <200 mg/dL [facility] [place] [facility] HDL Cholesterol 52 > OR = 50 mg/dL [facility] [place] [facility] Triglycerides 57 <150 mg/dL [employer] LDL Cholesterol 107(H) mg/dL (calc) [employer] Comment: Reference range: <100 Desirable range <100 mg/dL for primary prevention; <70 mg/dL for patients with CHD or diabetic patients with > or = 2 CHD risk factors. LDL-C is now calculated using the Kenrick-Dawit calculation, which is a validated novel method providing better accuracy than the Friedewald equation in the estimation of LDL-C. Kenrick SS et al. CAYETANO. 2013;310(19): 0597-8942 (http://education.Siteskin Web Solution/faq/ZZF985) Chol/HDLC Ratio 3.3 <5.0 (calc) [place] Non-HDL Cholesterol 121 <130 mg/dL (calc) [employer] Comment: For patients with diabetes plus 1 major ASCVD risk factor, treating to a non-HDL-C goal of <100 mg/dL (LDL-C of <70 mg/dL) is considered a therapeutic option. Blood Venous blood specimen / Unknown 10/02/2022 10:24 AM EST 10/02/2022 10:25 AM EST Narrative [facility] - 10/05/2022 2:27 PM EST FASTING:YES FASTING: YES Jazmín Quevedo MD LAB BLOOD ORDERABLES Final Result [facility] [address] [facility] [place] [address] [facility] [place] [facility] [address] [facility], ([address]) [place] [address] from Last 3 Months or Most Recently Relevant to Health Maintenance [facility] Care Teams Stay Cutter Relationship Specialty Start Date End Date Jazmín Quevedo MD [address] [place] [phone] PCP - General Family Medicine 10/20/18 Ar Adams [address] [place] [address] Neurosurgery 03/29/25
[2025-04-27 12:01] LABS: MANUAL DIFF FLAG NO
[2025-04-27 12:05] LABS: Hematocrit 43.1 % (37.0-47.0); Hemoglobin 14.0 g/dl (12.0-16.0); Imm Gran Abs Auto 0.02 X10*3/uL (0.00-0.03); Imm Gran Pct Auto 0.3 % (0.0-0.4); Lymphocytes Absolute Auto 1.8 X10*3/uL (1.2-4.9); Mean Corpuscular HGB Conc 32.5 g/dl (31.0-35.0); Mean Corpuscular Hemoglobin 29.5 pg (27.0-33.0); Mean Corpuscular Volume 90.9 fL (80.0-98.0); NRBC Abs Auto 0.000 X10*3/uL (0.0-0.012); NRBC Pct Auto 0.0 /100WBC (0.0-0.2); Platelet Count 217 X10*3/uL (160-400); Red Blood Count 4.74 X10*6/uL (4.20-5.50); White Blood Count 8.0 X10*3/uL (4.8-10.8)
[2025-04-27 12:37] LABS: Alanine Aminotransferase 10 U/L (0-31); Albumin Level 4.2 g/dL (3.5-5.0); Alkaline Phosphatase 64 U/L (39-117); Anion Gap 9 (12-20); Aspartate Amino Transferase 17 U/L (5-31); Blood Urea Nitrogen 12 mg/dL (9-16); Calcium 8.6 mg/dL (8.4-10.2); Carbon Dioxide 28 mmol/L (22-29); Chloride 106 mmol/L (96-108); Cholesterol 193 mg/dL (<200); Estimated Glomerular Filt Rate > 60; HDL Cholesterol 44 mg/dL (>40); Potassium 4.1 mmol/L (3.3-5.1); Sodium 139 mmol/L (135-145); Total Protein 6.3 g/dL (6.5-8.0); Triglycerides 141 mg/dL (<150)
[2025-04-27 12:46] LABS: Syphilis Screen Nonreactive (Nonreactive)
[2025-04-27 12:50] LABS: HIV Num 1 0.05 S/CO (0.00-0.99); ~HepC Num1 0.06 S/CO (0.00-0.79); ~Hepatitis C Antibody Nonreactive (Nonreactive)
== END 2025-04-27 10:10 | disposition home or self-care (01) ==
LOC: HO.HHCL 10:09
PROVIDERS: PCP Family Medicine; Visit Provider Family Medicine
DX: M54.50 Low back pain, unspecified (principal); Z11.3 Encounter for screening for infections with a predominantly sexual mode of transmission; Z13.220 Encounter for screening for lipoid disorders; E55.9 Vitamin D deficiency, unspecified
CPT/HCPCS: 36415; 80048; 80061; 80076; 82306; 85025; 86780; 86803; 87389

== ENCOUNTER 2025-04-28 09:23 | Day surgery (SDC) | payer MEDICAID, SELFPAY ==
--- OUTSIDE RECORDS SUMMARY | 2025-04-12 14:45 | XMS_ITS | Clinical Summary ---
Author Organization [employer] Address [address] [facility] [address] [place] [address] Care Team Providers Care Storage Garage Attendant Name Role Phone Jazmín Quevedo MD Primary Care Provider [phone] Ar Adams Unavailable [phone] Allergies No known active allergies Medications SUMAtriptan [...] midline low back pain without sciatica Overview (03/29/2025): -seen in ER 12/09/24 X ray There [...] radiculopathy is suggested. Spine surgical consultation suggested. -followed by Dr. Turpin, neurosurgeon, plan for surgery Ganglion cyst 02/19/2024 Overview (02/19/2024): -seen by [...] 10/02/2022 Overview (10/02/2022): -Dx on exam 10/02/2022 -Gipsy of elbow brace Assessment & Plan (10/02/2022 12:50 PM EST): -Dx on exam 10/02/2022 -Gipsy of elbow brace Vitamin D deficiency 09/30/2022 [...] Department Care Team Description 03/25/2025 Results Follow-Up [facility] [address] [place] [address] [phone] Jazmín Quevedo MD MR Lumbar Spine w/o Contrast 03/24/2025 Orders Only [facility] External Provider, [facility] Acute midline low back pain without sciatica (Primary Dx) 03/10/2025 Refill [facility] [address] [place] [address] Yeison Franklin MD 03/04/2025 Telephone [facility] [address] [place] [address] Yeison Franklin MD 03/03/2025 Population Health Risk Score [facility] [address] [phone] Provider, Population Health Generic 03/01/2025 10:40 AM EDT Office Visit [facility] [address] [place] [address] Yeison Franklin MD Right flank pain (Primary Dx); Posterior chest pain; Chronic right-sided low back pain with right-sided sciatica 03/01/2025 Telephone [facility] [address] [place] [address] Yeison Franklin MD from Last 3 Months Immunizations Immunization Administration [...] 85 03/01/2025 10:39 AM EDT Temperature 36.7 C (98.1 F) 03/01/2025 10:39 AM EDT Respiratory Rate 16 03/01/2025 10:3 [...] Description 04/29/2025 10:00 AM EDT Office Visit [facility] [address] [place] [address] Jamzín Quevedo MD [address] [place] [address] Health Maintenance Due Date Last Done Comments Alcohol/Substance Use Screening 1995 Family Planning (PISQ) 1998 Hepatitis B Vaccines (1 of 3 - 19+ 3-dose series) 2002 Pneumococcal Vaccine: Pediatrics (0 to 5 Years) and At-Risk Patients (6 to 49) Years (1 of 2 - PCV) 2002 Depression [...] AM EDT Narrative 03/25/2025 8:32 AM EDT [address] [address] Magnetic Resonance Report Signed with Addenda Patient: Minal Rodriguez MR#: [id number] 34 : 1985 Acct:[id number] Age/Sex: 40 / F ADM Date: 03/24/25 Loc: HO.MRI Attending Dr: Celnea HERBERT Ordering Physician: Celena Brand Date of Service: 03/24/25 Procedure(s): MR lumbar spine wo con Accession Number(s): [id number] cc: Jazmín Quevedo MD; Celena Brand ADDENDUM This document has been electronically signed by: Meir Dozier MD on 03/25/2025 08:31:01 ADDENDUM: Receipt of this report by the clinical staff was confirmed with Tonia Godinez surgical oncologist on Mar 25, 2025 10:36:00 EDT. 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 MR lumbar spine without gadolinium [...] are patent. L3-4: Broad-based disc bulge with qjtb-wl-wmobowii facet joint degenerative change. Central canal and [...] Central canal is patent. Mild left-sided and opka-xi-qhqtezyp right-sided neural foraminal narrowing. IMPRESSION: Large right [...] in OV> 03/25/25830 DD/ 0 TD/TT: 03/25/25830 Meter Readers Supervisor: Procedure Note Donotuseinterpreter, Image - 03/25/2025 [place] [address] Magnetic Resonance Report Signed with Addenda Patient: Perri RodriguezWYR#: [id number] 34 : 1985Acct:[id number] Age/Sex: 40 / FADM Date: 03/24/25 Loc: HO.MRI Attending Dr: Celena HERBERT Ordering Physician: Celena Brand Date of Service: 03/24/25 Procedure(s): MR lumbar spine wo con Accession Number(s): [id number] cc: Jazmín Quevedo MD; Celena Brand ADDENDUM This document has been electronically signed by: Meir Dozier MD on 03/25/2025 08:31:01 ADDENDUM: Receipt of this report by the clinical staff was confirmed with Tonia Godinez, surgical oncologist on Mar 25, 2025 10:36:00 EDT. This [...] are patent. L3-4: Broad-based disc bulge with vyhp-wn-xhezgioo facet joint degenerative change. Central canal and [...] Central canal is patent. Mild left-sided and wovu-wp-nigxmwso right-sided neural foraminal narrowing. IMPRESSION: Large right central disc extrusion at L4-5 with prominent mass effect upon the traversing right L5 nerve rootlet. Correlation with a right L5 radiculopathy is suggested. Spine surgical consultation suggested. This document has been electronically signed by: Meir Dozier MD on 03/25/2025 08:31:01 Dictated By: Meir Dozier MD Signed By: <Electronically signed by Meir Dozier MD in OV> 03/25/25 0831 DD/ 0831 TD/TT: 03/25/25 0831 Meter Readers Supervisor: [facility] External Provider IMG MRI PROCEDURES Edited Result - Final * XR Chest 2 Views (03/01/2025 4:00 PM EDT) Anatomical Region Laterality Modality Chest Radiographic Heather ging 03/01/2025 4:00 PM EDT Narrative 03/01/2025 4:01 PM EDT [address] [address] XRay Report Signed Patient: Minal Rodriguez MR#: [id number] 34 : 1985 Acct:[id number] Age/Sex: 40 / F ADM Date: 03/01/25 Loc: [facility] Attending Dr: Yeison Franklin MD Ordering Physician: YEISON FRANKLIN MD Date of Service: 03/01/25 Procedure(s): XR chest 2V Accession Number(s): [id number] cc: YEISON FRANKLIN MD; Jazmín Quevedo MD [...] 03/01/25 1601 DD/ 1600 TD/TT: 03/01/25 1600 Meter Readers Supervisor: Procedure Note Donotuseinterpreter, Image - 03/01/[address] [address] XRay Report Signed Patient: Aislinn RodriguezR#: [id number] 34 : 1985Acct:[id number] Age/Sex: 40 / FADM Date: 03/01/25 Loc: HO.XRAY Attending Dr: Yeison Franklin MD Ordering Physician: YEISON FRANKLIN MD Date of Service: 03/01/25 Procedure(s): XR chest 2V Accession Number(s): [id number] cc: YEISON FRANKLIN MD; Jazmín Quevedo MD [...] 03/01/25 1601 DD/ 1600 TD/TT: 03/01/25 1600 Meter Readers Supervisor: Yeison Franklin MD IMG XR PROCEDURES Final Result * (ABNORMAL) POCT urinalysis dipstick manually resulted (03/01/2025 1:13 PM EDT) Pathologist [facility] Color, UA Yellow Clarity, UA Clear Glucose, [...] High Sensitivity (03/01/2025 12:38 PM EDT) Pathologist [facility] D Dimer High Sensitivity 234 NG/ML [facility] Comment:D-DIMER HS REFERENCE RANGENote: Our [...] ORDERABLES Final Resul t Performing Organization Address [place]/[facility] Co de Phone Number [facility] [address] [place] [phone] * Culture, Urine, Routine (03/01/2025 11:58 AM EDT) Urine Urine specimen obtained by clean catch procedure / Unknown 03/01/2025 11:58 AM EDT 03/01/2025 4:10 PM EDT Comment:UACC Narrative [facility] - 03/03/2025 7:45 AM EDT Escherichia coli Quant > 100,000 cfu/mL Escherichia coli: Ampicillin <=2(S) Escherichia coli: Cefazolin (Urine) <=1(S) Escherichia coli: Cefepime <=0.12(S) Escherichia coli: Ceftriaxone <=0.25(S) Escherichia coli: Ciprofloxacin <=0.06(S) Escherichia coli: Gentamicin <=1(S) Escherichia coli: Nitrofurantoin <=16(S) Escherichia coli: Trimethoprim/Sulfamethoxazole <=20(S) Specimen Source: Urine clean catch us Yesion Franklin MD LAB MICROBIOLOGY - GENERAL ORDER FEDERICO Final Result Performing Organization Address [place]/[facility] Co de Phone Number [facility] [address] [place] [phone] * BI Mammogram Diagnostic Tomosynthesis Right (12/26/2023 1:15 PM EST) Anatomical Region Laterality Modality Breast Right Mammography 12/26/2023 1:15 PM EST Narrative 12/26/2023 1:52 PM EST [facility] [address] [place] [address] Mammography Report Signed with Addenda Patient: Minal Rodriguez MR#: [id number] 34 : 1985 Acct:[id number] Age/Sex: 38 / F ADM Date: 12/26/23 Loc: HO.MAMMO Attending Dr: Jazmín Quevedo MD Ordering Physician: Jazmín Quevedo MD Results: 3.12MProbably Benign Finding - 12 month F/U Suggested Date of Service: 12/26/23 Follow Up: 12 month diagnos tic follow up Procedure(s): MM tomosynthesis diagnostic RT Accession Number(s): [id number] cc: Jazmín Quevedo MD ADDENDUM ADDENDUM: Typographical [...] in OV> 12/26/23 1348 DD/ 1315 TD/TT: Meter Readers Supervisor: Procedure Note Donotuseinterpreter, Image - 12/29/2023 [facility] [address] [place] [address] Mammography Report Signed with Glenn Patient: Perri RodrigueznMWashington#: [id number] 34 : 1985Acct:[id number] Age/Sex: 38 / FADM Date: 12/26/23 Loc: HO.MAMMO Attending Dr: Jazmín Quevedo MD Ordering Physician: Jazmín Quevedo MD Results: 3.12MProbably Benign Finding - 12 month F/U Suggested Date of Service: 12/26/23Follow Up: 12 month diagnos tic follow up Procedure(s): MM tomosynthesis diagnostic RT Accession Number(s): [id number] cc: Jazmín Quevedo MD ADDENDUM ADDENDUM: Typographical [...] in OV> 12/26/23 1348 DD/ 1315 TD/TT: Meter Readers Supervisor: Jazmín Quevedo MD IMG BI PROCEDURES Edited R esult - Final * Thinprep PAP, HPV mRNA E6/E7 RFX HPV 16,18/45, Chlamydia/N. Gonorrhoeae (12/23/2022 9:47 AM EST) Clinical Information: NO HX ABNORMAL PAPS [facility] LMP: NONE GIVEN [facility] Prev. PAP: NONE GIVEN [facility] Prev. BX: NO [facility] SOURCE: None given [employer] Statement Of Adequacy: [employer] Comment: Satisfactory for evaluation. Endocervical/transformation zone component present. Interpretation/Re sult: Negative for intraepithelial lesion or malignancy. [facility] Manager Android: Ivana [employer] Comment: RXB, CT(ASCP) CT screening location: [place] [address] (Always Message) [facility] [employer] Comment: EXPLANATORY NOTE: The Pap is a [...] HPV nRNA E6/E7 Not Detected Not Detected [employer] Comment: Methodology: Supervisor Assembly Stock-Mediated Amplification This assay detects E6/E7 viral messenger RNA (mRNA) from 14 high-risk HPV types (16,18,31,33,35,39,45,51,52,56,58,59,66,68). Cervical sources are required for HPV testing. If a vaginal source from a patient who has had a total hysterectomy with removal of cervix was submitted, please contact the testing laboratory for alternative testing options. For additional information, please refer to http://education.Survature/faq/TCK089s6 (This link if provided for information/ educational purposes only.) Chlamydia trachomatis RNA, TMA, Urogenital NOT DETECTED NOT DETECTED [facility] [employer] Neisseria gonorrhoeae RNA, TMA, Urogenital NOT DETECTED NOT DETECTED [facility] (Always Message) [facility] Comment: The analytical performance characteristics of this assay, when used to test SurePath(TM) specimens have been determined by [facility]. The modifications have not been cleared or approved by the FDA. This assay has been validated pursuant to the CLIA regulations and is used for clinical purposes. For additional information, please refer to https://[employer] [place].Survature/faq/ZJX715 (This link is being provided for information/ educational purposes only.) Cytology specimen container (physical object) 12/23/2022 9:47 AM EST 12/24/2022 10:14 AM EST Jazmín Quevedo MD LAB PATHOLOGY ORDERABLES F inal Result [facility] [address], [place] [phone] [facility] [address] [facility], ([address]) [place] [phone] * Hepatitis C Viral RNA, Quantitative, Real-Time PC (10/02/2022 10:24 AM EST) HCV RNA, QN Real Time PCR <15 NOT DETECTED NOT DETECTED IU/mL [facility] [employer] HCV RNA QN Real Time PCR <1.18 NOT DETECTED NOT DETECTED Log IU/mL [facility] Comment: This test was performed using Real-Time Polymerase Chain Reaction. Reportable Range: 15 IU/mL to 100,000,000 IU/mL (1.18 Log IU/mL to 8.00 Log IU/mL). The analytical performance characteristics of this assay have been determined by [facility]. The modifications have not been cleared or approved by the FDA. This assay has been validated pursuant to the CLIA regulations and is used for clinical purposes. For more information on this test, go to: http://[employer] [place].Survature/faq/PZO57y0 (This link is being provided for informational/ educational purposes only.) 10/02/2022 10:2 4 AM EST 10/02/2022 10:25 AM EST Narrative [facility] - 10/05/2022 2:27 PM EST FASTING:YES FASTING: YES Jazmín Quevedo MD LAB BLOOD ORDERABLES Final Result [facility] [address] [place] [address], [facility], [place] [phone] [facility] [employer] [address] [facility], ([address]) [place] [address] * HIV-1/2 Antigen and Antibodies, Fourth Generation, with Reflexes (10/02/2022 10:24 AM EST) Pathologist [facility] HIV Antigen/Antibody, 4th Generation NON-REAC TIVE NON-REAC TIVE [facility] [employer] [facility] Comment: HIV-1 antigen and HIV-1/HIV-2 antibodies were not detected. There is no laboratory evidence of HIV infection. PLEASE NOTE: This information has been disclosed to you from records whose confidentiality may be protected by state law. If your state requires such protection, then the state law prohibits you from making any further disclosure of the information without the specific written consent of the person to whom it pertains, or as otherwise permitted by law. A general authorization for the release of medical or other information is NOT sufficient for this purpose. For additional information please refer to http://[employer] [place].Intalio.[employer]/faq/ZTL899 (This link is being provided for informational/ educational purposes only.) The performance of this assay has not been clinically validated in patients less than 2 years old. Blood Venous blood specimen / Unknown 10/02/2022 10:24 AM EST 10/02/2022 10:25 AM EST Narrative [facility] - 10/05/2022 2:27 PM EST FASTING:YES FASTING: YES Jazmín Quevedo MD LAB BLOOD ORDERABLES Final Result Performing Organization Address City/[facility]/ZIP Co de Phone Number [facility] [address], [facility] [place] [phone] [facility] [employer] [address] [facility], ([address]) [place] [address] * (ABNORMAL) Lipid Panel, Standard (10/02/2022 10:24 AM EST) [facility] Signature Cholesterol, Total 173 <200 mg/dL [facility] HDL Cholesterol 52 > OR = 50 mg/dL [facility] Triglycerides 57 <150 mg/dL [facility] LDL Cholesterol 107(H) mg/dL (calc) [facility] Comment: Reference range: <100 Desirable range <100 mg/dL for primary prevention; <70 mg/dL for patients with CHD or diabetic patients with > or = 2 CHD risk factors. LDL-C is now calculated using the Kenrick-Dawit calculation, which is a validated novel method providing better accuracy than the Friedewald equation in the estimation of LDL-C. Kenrick SS et al. CAYETANO. 2013;310(19): 8098-6412 (http://education.Prowl/faq/LAP727) Chol/HDLC Ratio 3.3 <5.0 (calc) [facility] Non-HDL Cholesterol 121 <130 mg/dL (calc) [facility] Comment: For patients with diabetes plus 1 major ASCVD risk factor, treating to a non-HDL-C goal of <100 mg/dL (LDL-C of <70 mg/dL) is considered a therapeutic option. Blood Venous blood specimen / Unknown 10/02/2022 10:24 AM EST 10/02/2022 10:25 AM EST Narrative [facility] - 10/05/2022 2:27 PM EST FASTING:YES FASTING: YES Jazmín Quevedo MD LAB BLOOD ORDERABLES Final Result Performing Organization Address City/[facility]/ZIP Co de Phone Number [facility] [employer] [address] [place] [address] [employer] [facility] [address] [facility], ([address]) [place] [address] from Last 3 Months or Most Recently Relevant to Health Maintenance Insurance [facility] C3 Care Teams Storage Garage Attendant Relationship Specialty Start Date End Date [place], MD Jazmín [address] [place] [phone] PCP - General Family Medicine 10/20/18 Ar Adams [address] [place] [address] Neurosurgery 03/29/25
[2025-04-15 08:43] VITALS: BMI 35.2
[2025-04-28] VITALS (9 sets, daily range): BP systolic 91–123; BP diastolic 55–73; PULSE 55–81; RESP 11–17; TEMP 36.1–36.7; O2SAT 94–97; BMI 34.8
--- NOTE | ~2025-04-28 | FL_ITS ---
EXAMINATION: FL GUIDANCE ONLY HISTORY: L4-5 DISCECTOMY COMPARISON: Correlation is made with an MRI of the lumbar spine dated 03/24/2025. TECHNIQUE: Fluoroscopy time: 6.3 seconds. Cumulative Dose: 5.5262 mGy. DAP: 1.5332 mGym2 Images: 1. FINDINGS: A single fluoroscopic spot film of the lumbar spine in the lateral projection demonstrates a probe directed toward the L4-5 intervertebral disc space from a posterior approach. FL/FL guidance in OR IMPRESSION: Fluoroscopy during procedure. Please see procedure report for additional information. Electronically signed by: Caleb Huang MD 04/28/2025 01:30 PM EDT
[2025-04-28] MEDS: Lactated Ringers 1,000 ML 100 ML IVCONT (11:04)
--- NOTE | 2025-04-28 11:08 | MHC.SHP ---
Pre-Procedural Eval Section A - 24 Hr Update-Section A only Date of Service: 04/28/25 The patient is an INPATIENT: No Section B - Complete if H&P > 30 days Chief Complaint: Intervertebral disc disorders with radiculopathy, Details of Present Illness: Right leg pain Allergies: Allergies Allergy/AdvReac Type Severity Reaction Status Date / Time No Known Allergies Allergy Mild UNKNOWN Verified 03/21/25 09:05 Review of Systems Sugical H&P ROS: Negative: Constitution, Cardiovascular, Respiratory, Neurological, Psychiatric, Hem-Onc, Allergic/Immunologic, Gastrointestinal, Genitourinary, Musculoskeletal, Integumentary, Endocrine and Eyes/Ears/Nose/Throat Exam Surgical H&P Exam: Normal: HEENT, Normal: Heart, Normal: Lungs, Normal: Extremities, Normal: Abdomen, Normal: Skin and Normal: Neurological (Awake, alert) Plan Diagnosis/Plan: Unchanged I have reviewed the history and physical and performed a pertinent physical examination on my patient. No changes have occurred unless specified. right L4-5 microdiskectomy Time Spent With Patient Time: Total time managing care of this patient today _5___ minutes.
--- NOTE | 2025-04-28 11:19 | P.CONAN_ITS ---
Documented by User: Mariposa Casanova NP 04/27/25 08:51 HPI - Anesthesia Eval Consult details Narrative: 40yo F for Right L4-5 MicroLumbar discectomy PMFSH Active Problems Active Problems: All Active Problems Lumbar disc herniation with radiculopathy (Acute) Pain of right sacroiliac joint (Acute) Lumbar radiculopathy (Acute) Lumbar degenerative disc disease (Acute) Bertolotti syndrome (Acute) Lumbosacral spondylosis (Acute) Ganglion cyst of dorsum of left wrist (Acute) Numbness and tingling in both hands (Acute) COVID-19 (Acute) Tobacco dependence with current use (Acute) Chronic low back pain with right-sided sciatica (Acute) Heart palpitations (Acute) Past Medical History Medical History (Updated 04/15/25 @ 08:42 by Yari Neal RN) History of blood transfusion Anemia Seizures Tobacco dependence with current use Bilateral hand numbness Midline low back pain Vitamin D deficiency 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 Surgical History Surgical History (Updated 04/15/25 @ 08:42 by Yari Neal RN) Hx of tubal ligation History of Social History Social History Are you a primary summer child caregiver to a significant other at home: Yes (minor children) Do you presently have visiting nurse or other home services: No Patient Tobacco Use Status: Current everyday Tobacco user Tobacco use type: Cigarette Cigarettes Per Day: 3 Years Smoked: 20 Use of substances other than those prescribed or required for medical reasons: Yes Substance Use Type Other:: for sleep-advised to hold 3-5 days pre-op Substance Use Frequency: Occasionally Have you been hit, kicked, punched, or otherwise hurt by someone within the past year? 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 Meds Allergies Allergy/AdvReac Type Severity Reaction Status Date / Time No Known Allergies Allergy Mild UNKNOWN Verified 03/21/25 09:05 Home Medications ?Medication ?Instructions ?Recorded ?Confirmed ?Last Taken ?Type meloxicam 15 mg tablet 15 mg PO DAILY PRN pain 03/2104/15/25 04/16/25 History Exam Height,Weight and Vital Signs: Height 5 ft 4 in Weight 92.986 kg Assessment and Plan Assessment Anesthesia Assessment: Chart Reviewed Documented by User: Ann Pompa, 04/28/25 11:21 [facility] Past Medical History Medical History (Updated 04/15/25 @ 08:42 by Yari Neal RN) History of blood transfusion Anemia Seizures Tobacco dependence with current use Bilateral hand numbness Midline low back pain Vitamin D deficiency 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 Family history of problems with anesthesia: No Surgical History Surgical History (Updated 04/15/25 @ 08:42 by Yari Neal RN) Hx of tubal ligation History of History of Problems with Anesthesia: No Social History Social History Are you a primary summer child caregiver to a significant other at home: Yes (minor children) Do you presently have visiting nurse or other home services: No Patient Tobacco Use Status: Current everyday Tobacco user Tobacco use type: Cigarette Cigarettes Per Day: 3 Years Smoked: 20 Use of substances other than those prescribed or required for medical reasons: Yes Substance Use Type Other:: for sleep-advised to hold 3-5 days pre-op Substance Use Frequency: Occasionally Have you been hit, kicked, punched, or otherwise hurt by someone within the past year? 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 Meds Allergies Allergy/AdvReac Type Severity Reaction Status Date / Time No Known Allergies Allergy Mild UNKNOWN Verified 03/21/25 09:05 Home Medications ?Medication ?Instructions ?Recorded ?Confirmed ?Last Taken ?Type meloxicam 15 mg tablet 15 mg PO DAILY PRN pain 03/2104/15/25 04/16/25 History Exam Exam Date and Time: 04/28/25 1120 Height,Weight and Vital Signs: Height 5 ft 4 in Weight 92.986 kg Vital Signs Temperature 97.2 F 04/28/25 10:40 Pulse Rate 64 04/28/25 10:40 Respiratory Rate 16 04/28/25 10:40 Blood Pressure 91/58 L 04/28/25 10:40 Pulse Oximetry 96 04/28/25 10:40 Oxygen Delivery Method Room Air 04/28/25 10:40 Temperature 97.2 F 04/28/25 10:40 Pulse Rate 64 04/28/25 10:40 Respiratory Rate 16 04/28/25 10:40 Blood Pressure 91/58 L 04/28/25 10:40 Pulse Oximetry 96 04/28/25 10:40 Oxygen Delivery Method Room Air 04/28/25 10:40 Airway Mallampati Class: I TM Dist: >3cm Neck ROM: Full Loose/Missing/Broken Teeth: No (patient denies any loose or broken teeth) Heart: S1S2 Lungs: CTAB Assessment and Plan Assessment Anesthesia Assessment: Anesthesia Plan Discussed and Chart Reviewed Final Anesthetic Review Family History of Problems with Anesthesia: No History of Problems with Anesthesia: No NPO: Yes ASA Class: II Final Preanesthetic Review: No Changes in Pt Med Stat, Meds/Allgs Chart Reviewed, Consent Obtained/Reviewed and Anes Risks/Benef Reviewed Patient Risk: Low Procedure Risk: Intermediate Anesthetic Plan Anesthetic Plan: GA and Agree w/ Assess. and Plan Disposition: Standard PACU
--- NOTE | 2025-04-28 13:27 | P.OP_ITS ---
Operative Note Operative Note Date of Service: 04/28/25 Narrative: Preoperative diagnosis: Right L5 radiculopathy due to disc herniation Postoperative diagnosis: Same Procedure: Right L4-5 lumbar microdiskectomy with microscope Surgeon: Ar Adams MD, PhD Senior Publications Specialist: POONAM Lou This patient is suffering from a right lumbar radiculopathy due to a disc herniation L4-5 compressing the right L5 nerve root. The patient was offered a lumbar microdiskectomy to decompress the nerve root. The procedure complications were explained. The patient was consented. The patient was brought to the operating room and endotracheally intubated. The patient was turned in a prone position on the Trung frame. Prepping and draping was done followed by time-out. A mid lumbar incision was made followed by release of the paravertebral muscles on the right side to expose the L4-5 interspace. An intraoperative x-rays obtained to confirm the correct level. The microscope was brought in. A L4 laminotomy was done followed by opening of the flavum ligament. The L5 nerve root was identified and retracted medially to expose the L4-5 disc space. I could palpate a disc bulge medial from the L5 nerve root. Then an annulotomy was done after which several fragments of disc herniation were removed from under the L5 nerve root. The nerve root was inflammated. The disc space was inspected and any residual disc fragments were removed. This resulted in an excellent decompression of the L5 nerve root. Hemostasis was done. The microscope was removed. Marcaine was injected intramuscularly.The incision was closed in two layers. Steri-Strips used to approximate the incision. An op- site were taken there was used to cover the incision. All sponge and needle counts were correct. Patient was extubated and transported in stable condition to recovery room. this procedure was done with the aid of a physician law office assistant who performed the initial exposure until the microscope was brought in and performed the closure of the incision. Anesthesia: General Blood loss: 10 mL Complications: None Specimen: None Surgical time: 60 minutes Disposition: Discharge home
--- NOTE | 2025-04-28 13:34 | P.DS_ITS ---
DS: Providers Provider Date of Service: 04/28/25 Date of discharge: 04/28/25 Primary care physician: Jazmín Quevedo MD DS: Summary Time Attestation Discharge Coordination Time (in mins): 12 Quality: Safe Use of Opioids Does Pt have an Active Cancer Diagnosis on the Problem List?: No Quality: Stroke Does the patient have a stroke diagnosis?: No Physical Exam Vital Signs: Vital Signs: Last Vital Signs Temp 97.2 F 04/28/25 10:40 Pulse 64 04/28/25 10:40 Resp 16 04/28/25 10:40 BP 91/58 L 04/28/25 10:40 Pulse Ox 96 04/28/25 10:40 O2 Del Method Room Air 04/28/25 10:40 BMI result Body Mass Index 34.8 Discharge Plan Discharge Patient Disposition: Home, Self-Care Referrals: Jazmín Quevedo MD [Primary Care Provider, [facility]] - 1 Week Discharge Medications: New oxycodone 5 mg tablet 5 mg PO Q6H PRN (Reason: pain ) Qty: 20 0RF Rx Instructions: Partial Fill upon patient request. No Action acetaminophen [Tylenol Extra Strength] 500 mg tablet 1,000 mg PO Q8H PRN (Reason: pain) Qty: 30 0RF meloxicam 15 mg tablet 15 mg PO DAILY PRN (Reason: pain) Rx Instructions: Take it with food and full glass of water. Discharge Orders: Discharge Order (Routine); Ordered 04/28/25 Ordered By: Kyle Diaz Diet: Advance to usual diet Activity on Discharge: As tolerated Activity Restrictions/Additional Instructions: After your spinal surgery we ask you to observe the following restrictions/guidelines: Activity: It is normal to feel some discomfort as you increase your activity, but that will improve with time. We ask you avoid heavy lifting or acitivities that cause pain. As a general rule, 8lbs is a safe limit for lifting right after surgery. Walk as much as you feel comfortable but not to exhaustion. You will feel extra tired the first few days after surgery. Stay well hydrated. It is OK to walk up and down stairs You may return to driving when you are off narcotics (such as vicodin, oxycodone, dilaudid, etc), and you are back to normal functional capacity. If you have any concerns please check with office before driving. Return to work is specific to each patient and each surgery, so please speak with your doctor/PA at first follow up. Please bring paperwork such as FMLA at that time if you need it filled out. Medications: We recommend you take 1,000mg Tylenol every 8 hours for the first few weeks after surgery, if you do not have any liver issues and can tolerate this medication. Do not exceed 4,000mg daily. We will give you a short supply of narcotics after surgery (usually one weeks worth). If you need more please call the office but do not use more than prescribed. You will need to give our office 48 hours notice if you need narcotics refilled and we do not fill narcotics on weekends or evenings. If you are on a narcotic, it is a good idea to take a stool softener such as colace or senna to avoid constipation If you take blood thinner such as aspirin, Plavix, Coumadin, Effient, Eliquis etc for conditions such as Afib, DVT, Pulmonary embolus, coronary disease, stents etc please speak with your surgeon about specific details as to when you can resume these medications. You can resume NSAIDs on post op day 1 (eg: Motrin, Naproxen, etc). Follow up: Please call the office, , after surgery to arrange a 3 week follow up for wound check. Wound Care: You may remove your dressing on the first day after surgery. ?You may ?leave open to air. Please do not remove the steri strips underneath. they will fall off on their own in one week. IT IS NORMAL FOR THE WOUND TO OOZE OR BE BLOODY FOR A FEW DAYS AFTER SURGERY. ?IF THIS HAPPENS JUST PLACE NEW DRESSING OVER IT TO AVOID STAINING CLOTHES. You may shower on post op day # 1 We ask that you do not let the water soak the wound. If it does get wet, just towel dry lightly. Please do not scrub your incision or place any type of chemical/ointment on the wound. No tub baths, pools or jacuzzis for one month. If you have any leaking or redness from your wound, or fevers, please call the office. Print Language: Filipino
== END 2025-04-28 15:46 | disposition home or self-care (01) ==
PROVIDERS: PCP Family Medicine; Visit Provider Neurological Surgery
PROC: (CPT 63030; principal; 2025-04-28 13:30)
DX: M51.16 Intervertebral disc disorders with radiculopathy, lumbar region (principal); M79.651 Pain in right thigh; M79.661 Pain in right lower leg; R20.0 Anesthesia of skin; R26.89 Other abnormalities of gait and mobility; Z87.828 Personal history of other (healed) physical injury and trauma; Z79.899 Other long term (current) drug therapy; F17.210 Nicotine dependence, cigarettes, uncomplicated
CPT/HCPCS: 63030; J0131; J0690; J1100; J1630; J1885; J2003; J2250; J2405; J2704; J3010

== ENCOUNTER → 2025-04-28 09:23 | Outpatient (BNV) | payer MEDICAID, SELFPAY | PROVIDERS: PCP Family Medicine; Visit Provider Neurological Surgery | DX: M51.16 Intervertebral disc disorders with radiculopathy, lumbar region (principal) | CPT/HCPCS: 63030; 99499 ==

== ENCOUNTER 2025-05-23 09:35 | Outpatient (AMB) | payer MEDICAID, SELFPAY ==
--- NOTE | 2025-05-23 09:31 | HO.SPINEOV ---
Intake Visit Reasons: 1st post op Intake Note: Ms. Rodriguez is here today for her 1st post-op visit. Rehabilitation Construction Specialist Required: No Allergies No Known Allergies Allergy (Mild, Verified 03/21/25 09:05) UNKNOWN Assessment & Plan Assessment & Plan (1) S/P lumbar microdiscectomy: Code(s): Z98.890 - Other specified postprocedural states Category: Surgical Plan Minal comes in today for her 1st postop visit after having Right L4-5 lumbar microdiskectomy completed by Dr. Adams a few weeks ago. To recap Barbara's evaluated in clinic prior to surgery for pain shooting down her right leg into her buttock, posterior thigh, going into her lateral calf. Thankfully, she reports that her shooting radicular pain has resolved since her surgery. She does still report some occasional posterior right-sided buttocks pain, and occasional low back pain, but attributes this to the normal postoperative healing course from her microdiskectomy. Other than that, she is completing her ADLs without much issue, and reports she is only taking the occasional meloxicam for pain. No new neurological deficits. The patient ambulates well and rises from a seated position without difficulty. Her posterior incision site is closed and well healing. I would like to follow up with the patient again in 6 weeks for her 2nd postoperative visit. Kyle Adams MD,PhD [facility] Coding Level of Care Code Global (60804) Diagnoses S/P lumbar microdiscectomy Z98.890
--- OUTSIDE RECORDS SUMMARY | 2025-05-23 10:08 | XMS_ITS | Clinical Summary ---
Author Organization [employer] Address [address] [place] [address] Care Team Providers Care Sales Representative Trainee Name Role Phone Jazmín Quevedo MD Primary Care Provider [phone] Ar Adams Unavailable [phone] Allergies No known active allergies Medications cholecalcifero l (Vitamin D-3) 50 MCG (1999) capsuleIndicat ions:Vitamin D deficiency Take 1 capsule (50 mcg) by mouth Once per day. 90 capsule 3 04/27/20 25 Active SUMAtriptan (Imitrex) 25 MG tablet Take 1 [...] three times a day as needed 09/06/20 22 025 Discontinued(Me d list cleanup (will not trigger notification to Pharmacy)) amitriptyline (Elavil) 25 MG tablet Take 25 mg by mouth at bedtime. 01/07/20 23 025 Discontinued(Me d list cleanup (will not [...] cleanup (will not trigger notification to Pharmacy)) HPV 9-valent (Gardasil-9) suspension prefilled syringe vaccine prefilled syringe Inject 0.5 mL into the muscle 1 (one) time for 1 dose. 0.5 mL 05/12/20 25 025 Active Problems Problem Noted Date Diagnosed Date Tobacco dependence 03/01/2025 Overview (04/27/2025): -Cigg/day: 3-5 cigarettes/day -Age started: 13 -Total years smokin -Pack year history: Encouraged smoking cessation resources such as pharmacomtherapy, [facility] smoking cessation group, and [facility] pharmacy smoking cessation clinic Discussed USPSTF recommends [...] Encouraged smoking cessation resources such as pharmacomtherapy, [facility] smoking cessation group, and [facility] pharmacy smoking cessation clinic Discussed USPSTF recommends annual lung cancer screening with low dose CT in people who meet the following criteria: -ages 50 to 80 years. -have a 20 pack-year smoking history. -currently smoke cigarettes or quit within the past 15 years. -LDCT: Posterior chest pain 03/01/2025 Acute midline low back pain without sciatica Overview (05/12/2025): -seen in ER 12/09/24 X ray There [...] Dr. Turpin, neurosurgeon, plan for surgery -Surgery successfully completed 04/28/25 -recommended and referred for PT 05/12/25 Assessment & Plan (05/12/2025 12:40 PM EDT): -seen in ER 12/09/24 X ray [...] Dr. Turpin, neurosurgeon, plan for surgery -Surgery successfully completed 04/28/25 -recommended and referred for PT 05/12/25 Assessment & Plan (04/27/2025 10:29 AM EDT): [...] due after 04/27/26 -eye care facilitated by Demetrio -dental home is [facility] -health care proxy given and filed 04/27/25 Assessment & Plan (04/27/2025 10:29 AM EDT): -next comprehensive annual evaluation due after 04/27/26 -eye care facilitated by Demetrio -dental home is [facility] -health care proxy given and filed 04/27/25 [...] 10/02/2022 Overview (10/02/2022): -Dx on exam 10/02/2022 -Dumas of elbow brace Assessment & Plan (10/02/2022 12:50 PM EST): -Dx on exam 10/02/2022 -Dumas of elbow brace Vitamin D deficiency 09/30/2022 Overview (05/12/2025): Lab Results Component Value Date [id number] 12.5 (L) 04/27/2025 -ordered Vit D level 04/27/25 Assessment & [...] Encounters Date Type Department Care Team Description 05/12/2025 11:15 AM EDT Office Visit [address] [address] Jazmín Quevedo MD Acute midline low back pain without sciatica (Primary Dx); Class 2 obesity due to excess calories without serious comorbidity with body mass index (BMI) of 36.0 to 36.9 in adult; Dietary counseling; Exercise counseling; Breast screening; Encounter for immunization 05/12/2025 [facility] [address] [address] [place] 05/10/2025 Travel 05/09/[address] [address] Jazmín Quevedo MD Immunizations 05/02/[address] [address] Jazmín Quevedo MD Appointment Request 04/28/2025 Orders Only [facility] External Provider, [facility] 04/27/2025 9:45 AM EDT Office Visit [address] [address] Jazmín Quevedo MD Acute midline low back pain without sciatica (Primary Dx); Vitamin D deficiency; Tobacco dependence; Class 1 obesity due to excess calories without serious comorbidity with body mass index (BMI) of 33.0 to 33.9 in adult; Dietary counseling; Exercise counseling; Screening cholesterol level; Routine screening for STI (sexually transmitted infection); Other specified health status 04/27/2025 Results Follow-Up [facility] [address] [address] Jazmín Quevedo MD Hepatic Function Panel, Lipid Panel, Standard, Basic Metabolic Panel, Additional followed-up results: 5 04/27/2025 Travel 04/26/[address] [address] Jazmín Quevedo MD CHART PREP 04/20/2025 Travel 04/19/2025 Patient Outreach [facility] [address] [place] [address] Jazmín Quevedo MD Pre-visit Planning (SDOH negative, Tobacco screening positive. ) 03/25/2025 Results Follow-Up [facility] [address] [place] [phone] Jazmín Quevedo MD MR Lumbar Spine w/o Contrast 03/24/2025 Orders Only [facility] External Provider, [facility] Acute midline low back pain without sciatica (Primary Dx) 03/10/2025 Refill [facility] [address] [place] [address] Yeison Erwin MD 03/04/2025 Telephone [facility] [address] [place] [phone] Yeison Erwin MD 03/03/2025 Population Health Risk Score [facility] ([facility] Department [address] [place] [phone] Provider, Population Health Generic 03/01/2025 10:40 AM EDT Office Visit [facility] [address] [place] [phone] Yeison Erwin MD Right flank pain (Primary Dx); Posterior chest pain; Chronic right-sided low back pain with right-sided sciatica 03/01/2025 Telephone [facility] [address] [place] [phone] Yeison Erwin MD from Last 3 Months Immunizations Immunization Administration Dates Next Due DTaP 08/31/2013 HPV 9-Valent 05/16/2025 HepB-CpG 05/12/2025 Influenza injectable quadriv alent IIV4 with preservative 10/02/2022,07/13/2018,07/07/2017 Influenza injectable quadriv alent preservative free 09/26/2020,09/09/2019 Influenza, Split (incl. asha fied surface antigen) 08/02/2013,11/10/2012 Influenza, seasonal, injecta ble, preservative free 09/12/2014 MMR 10/17/2017 Pfizer Covid-19 Vaccine 12+ 03/02/2021, Pneumococcal Conjugate PCV 20 05/12/2025 TD (adult), 2 Lf tetanus tox oid, preservative free, adsorbed 06/22/2019 Tdap 10/01/2017,07/07/2017,09/12/2014 Social History Tobacco Use Types Packs/Day Years [...] Sign Reading Time Taken Comments Blood Pressure 116/72 05/12/2025 11:09 AM EDT Pulse 78 05/12/2025 11:09 AM EDT Temperature 37 C (98.6 F) 05/12/2025 11:09 AM EDT Respiratory Rate 20 05/12/2025 11:09 AM EDT Oxygen Saturation 98% 05/12/2025 11:09 AM EDT Inhaled Oxygen Concentration - - Weight 95.8 kg (211 lb 3.2 oz) 05/12/2025 11:09 AM EDT Height 162.6 cm (5' 4 ) 05/12/2025 11:09 AM EDT Body Mass Index 36.25 05/12/2025 11:09 AM EDT Plan of Treatment Upcoming Encounters Date Type Department Care Team (Late st Contact Info) Description 07/18/2025 11:00 AM EDT Immunization [facility] [address] [place] [phone] Health Maintenance Due Date Last Done Comments COVID-19 Vaccine ( season) 2024 03/02/2021, 02/09/2021 Diagnostic Breast Imaging 12/25/2024 12/26/2023, Mammogram 01/17/2025 12/26/2023, 06/20, 06/11/2023 Hepatitis B Vaccines (2 of 2 - CpG 2-dose series) 06/09/2025 05/12/2025 HPV Vaccines (2 - 3-dose series) 06/13/2025 05/16/2025 Influenza Vaccine (#1) 2025 , 09/26/2020, 09/09/2019, Additional history exists SDOH Screening 04/19/2026 04/19/2025 Alcohol/Substance Use Screening 04/27/2026 04/27/2025 Depression Screening 04/27/2026 04/27/2025, 04/27/20 Disability Screening 04/27/2026 04/27/2025 Family Planning (PISQ) 04/27/2026 04/27/2025 Tobacco Screening 05/12/2026 05/12/2025 Cervical Cancer Screening 12/24/2027 HPV/Cotest 12/24/2027 12/23/2022, 11/26/2017 Pap Smear 12/24/2027 12/23/2022, 11/26/2017 DTaP/Tdap/Td Vaccines (6 - Td or Tdap) 06/22/2029 06/22/2019, 10/01/2017, 07/07/2017, Additional history exists Lipid Panel 04/27/2030 04/27/2025, 10/02/2022 Zoster Vaccines (1 of 2) 2033 RSV Patients and Patients Aged 60 years or older (1 - 1-dose 75+ series) 2058 HIV Screening Completed 04/27/2025, 09/19, 06/30/2020 Hepatitis C Screening Completed 04/27/2025 , 10/02/2022, 09/19/2022, Additional history exists Pneumococcal Vaccine: Pediatrics (0 to 5 Years) and At-Risk Patients (6 to 49) Years Completed 05/12/2025 HIB Vaccines Aged Out No longer eligi [...] Procedure Name Priority Date/Time Associated Diagnosis Comments FL GUIDANCE IN OR Routine 04/28/2025 12: 40 PM EDT SYPHILIS SCREEN Routine 04/27/2025 10:15 AM EDT Routine screening for STI (sexually transmitted infection) HIV 1/2 ANTIGEN/ANTIBODY, FOURTH GENERATION W/RFL Routine 04/27/2025 10:15 AM EDT Routine screening for STI (sexually transmitted infection) HEPATITIS C AB W/REFL TO HCV RNA, QN, PCR Routine 04/27/2025 10:15 AM EDT Routine screening for STI (sexually transmitted infection) VITAMIN D,25-OH,TOTAL,IA Routine 04/27/2025 10:15 AM EDT Vitamin D deficiency CBC WITH AUTO DIFFERENTIAL Routine 04/27/2025 10:15 AM EDT Acute midline low back pain without sciatica BASIC METABOLIC PANEL Routine 04/27/2025 10:15 AM EDT Acute midline low back pain without sciatica LIPID PANEL, STANDARD Routine 04/27/2025 10:15 AM EDT Screening cholesterol level HEPATIC FUNCTION PANEL Routine 10:15 AM EDT Screening cholesterol level MR LUMBAR SPINE WO CONTRAST Routine 03/25/2025 [...] EST Pap smear for cervical cancer screening from Last 3 Months or Most Recently Relevant to Health Maintenance Results * FL Guidance in OR (04/28/2025 12:40 PM EDT) Anatomical Region Laterality Modality X-Ray Angiograph y 04/28/2025 12:4 0 PM EDT Narrative 04/28/2025 1:33 PM EDT [place] [address] Fluoroscopy Report Signed Patient: Minal Rodriguez MR#: [id number] 34 : 1985 Acct:[id number] Age/Sex: 40 / F ADM Date: 04/28/25 Loc: .[facility] Attending Dr: Ar Adams MD, PhD Ordering Physician: Ar Adams MD, PhD Date of Service: 04/28/25 Procedure(s): FL guidance in OR Accession Number(s): [id number] cc: Jazmín Quevedo MD; Ar Adams MD, PhD EXAMINATION: FL GUIDANCE ONLY HISTORY: L4-5 DISCECTOMY COMPARISON: Correlation is made with an MRI of the lumbar spine dated 03/24/2025. TECHNIQUE: Fluoroscopy time: 6.3 seconds. Cumulative Dose: 5.5262 mGy. DAP: 1.5332 mGym2 Images: 1. FINDINGS: A single fluoroscopic spot film of the lumbar spine in the lateral projection demonstrates a probe directed toward the L4-5 intervertebral disc space from a posterior approach. FL/FL guidance in OR IMPRESSION: Fluoroscopy during procedure. Please see procedure report for additional information. Electronically signed by: Caleb Huang MD 04/28/2025 01:30 PM EDT Dictated By: Caleb Huang MD Signed By: <Electronically signed by Caleb Huang MD in OV> 04/28/25 1330 DD/ 1240 TD/TT: 04/28/25 1311 Guide Delegate: Procedure Note Donotuseinterpreter, Image - 04/28/[address] [address] Fluoroscopy Report Signed Patient: Trinidad Rodriguez#: [id number] 34 : 1985Acct:[id number] Age/Sex: 40 / FADM Date: 04/28/25 Loc: HO.SSS Attending Dr: Ar Adams MD, PhD Ordering Physician: Ar Adams MD, PhD Date of Service: 04/28/25 Procedure(s): FL guidance in OR Accession Number(s): [id number] cc: Jazmín Quevedo MD; Ar Adams MD, PhD EXAMINATION: FL GUIDANCE ONLY HISTORY: L4-5 DISCECTOMY COMPARISON: Correlation is made with an MRI of the lumbar spine dated 03/24/2025. TECHNIQUE: Fluoroscopy time: 6.3 seconds. Cumulative Dose: 5.5262 mGy. DAP: 1.5332 mGym2 Images: 1. FINDINGS: A single fluoroscopic spot film of the lumbar spine in the lateral projection demonstrates a probe directed toward the L4-5 intervertebral disc space from a posterior approach. FL/FL guidance in OR IMPRESSION: Fluoroscopy during procedure. Please see procedure report for additional information. Electronically signed by: Caleb Huang MD 04/28/2025 01:30 PM EDT Dictated By: Caleb Huang MD Signed By: <Electronically signed by Caleb Huang MD in OV> 04/28/25 1330 DD/ 1240 TD/TT: 04/28/25 1311 Guide Delegate: [facility] External Provider IMG IR PROCEDURES Edited Result - Final * Syphilis Screen (04/27/2025 10:15 AM EDT) Syphilis Screen Nonreactive Nonreactive [facility] Blood Venous blood specimen / Unknown 04/27/2025 10:15 AM EDT 04/27/2025 12:00 PM EDT Jazmín Quevedo MD LAB BLOOD ORDERABLES Final Result Performing Organization Address City/[facility]/ZIP Co de Phone Number [facility] [address] [place] [phone] [phone] * (ABNORMAL) Vitamin D, 25-Hydroxy, Total, Immunoassay (04/27/2025 10:15 AM EDT) Vitamin D 25-OH Total 12.5(L) >30 ng/mL [facility] Comment: Health Based Reference Values*< 20 ng/mL Wljysttde23-54 ng/mL Insufficient> 30 ng/mL Sufficient*Brock LACY. N Engl J Med. 2007;357:266-280There is no well-established upper level of normal vitamin Dlevels. Some laboratories use 50 ng/mL as an upper limit ofnormal. However, toxicity is patient-dependent and may occurat any level. Careful correlation with the patient'spresentation is necessary and, if there is concern forvitamin D toxicity, treatment should be consideredirrespective of the serum level.Care must be taken in interpreting Vitamin D results fromdifferent laboratories and methodologies. Published datademonstrated that results from patients undergoinghemodialysis may show a negative bias when tested withvarious automated 25-OH vitamin D assays when compared toLC-MS/MS.When testing samples from patients whose predominant form ofVitamin D is Vitamin D2, such as patients receiving VitaminD2 supplementation, results that are subtherapeutic shouldbe confirmed with another method such as LC-MS/MS. Blood 04/27/2025 10:1 5 AM EDT 04/27/2025 12:00 PM EDT Jazmín Quevedo MD LAB BLOOD ORDERABLES Final Result Performing Organization Address [facility]/ZIP Co de Phone Number [facility] [address] [place] [phone] * CBC auto differential (04/27/2025 10:15 AM EDT) White Blood Count 8.0 4.8 - 10.8 X10*3/uL [facility] Red Blood Count 4.74 4.20 - 5.50 X10*6/uL [facility] Hemoglobin 14.0 12.0 - 16.0 g/dl [facility] Hematocrit 43.1 37.0 - 47.0 % [facility] Mean Corpuscular Volume 90.9 80.0 - 98.0 fL [facility] Mean Corpuscular Hemoglobin 29.5 27.0 - 33.0 pg [facility] Mean Corpuscular HGB Conc 32.5 31.0 - 35.0 g/dl [facility] Red Cell Distribution Width 13.1 11.0 - 16.0 % [facility] Platelet Count 217 160 - 400 X10*3/uL [facility] Mean Platelet Volume 9.4 9.4 - 12.3 fL [facility] Neutrophils Percent Auto 70.1 45 - 73 % [facility] Imm Gran Pct Auto 0.3 0.0 - 0.4 % [facility] Lymphocytes Percent Auto 22.0 20 - 40 % [facility] Monocytes Percent Auto 6.2 2 - 11 % [facility] Eosinophils Percent Auto 1.0 0 - 4 % [facility] Basophils Percent Auto 0.4 0 - 2 % [facility] NRBC Pct Auto 0.0 0.0 - 0.2 /100WBC [facility] Neutrophils Absolute Auto 5.6 2.0 - 8.3 x10*3/uL [facility] Imm Gran Abs Auto 0.02 0.00 - 0.03 X10*3/uL [facility] Lymphocytes Absolute Auto 1.8 1.2 - 4.9 X10*3/uL [facility] Monocytes Absolute Auto 0.5 0.1 - 1.2 X10*3/uL [facility] Eosinophils Absolute Auto 0.1 0.0 - 0.4 X10*3/uL [facility] Basophils Absolute Auto 0.0 0.0 - 0.2 X10*3/uL [facility] NRBC Abs Auto 0.000 0.0 - 0.012 X10*3/uL [facility] Blood Venous blood specimen / Unknown 04/27/2025 10:15 AM EDT 04/27/2025 11:53 AM EDT Jazmín Quevedo MD LAB BLOOD ORDERABLES Final Result Performing Organization Address [facility]/ZIP Co de Phone Number [facility] [address] [place] [address] [phone] * Hepatitis C Antibody with Reflex to HCV, RNA, Quantitative, Real-Time PCR (04/27/2025 10:15 AM EDT) Hepatitis C Antibody Nonreactive Nonreactive [facility] Comment:Antibodies to HCV no t detected; does not exclude early acuteHCV infection. Blood Venous blood specimen / Unknown 04/27/2025 10:15 AM EDT 04/27/2025 12:00 PM EDT Jazmín Quevedo MD LAB BLOOD ORDERABLES Final Result Performing Organization Address [facility] Co de Phone Number [facility] [address] [place] [phone] * HIV-1/2 Antigen and Antibodies, Fourth Generation, with Reflexes (04/27/2025 10:15 AM EDT) HIV AB/AG Nonreactive Nonreactive [facility] Comment:HIV-1 p24 Ag and/or HIV-1/HIV-2 Ab not detected.A test result that is nonreactive does not exclude thepossibility of exposure to or infection with HIV-1 and/orHIV-2. Nonreactive results in this assay for individualswith prior exposure to HIV-1 and/or HIV-2 may be due toantigen and antibody levels that are below the limit ofdetection of this assay.The [employer] HIV Ag/Ab Combo assay result andsupplemental assay results should be interpreted inconjunction with the patient's clinical presentation,history and other laboratory results. If the results areinconsistent with clinical evidence, additional testing issuggested to confirm the result. Blood Venous blood specimen / Unknown 04/27/2025 10:15 AM EDT 04/27/2025 12:00 PM EDT Jazmín Quevedo MD LAB BLOOD ORDERABLES Final Result Performing Organization Address [facility]/ZIP Co de Phone Number [facility] [address] [place] [phone] * (ABNORMAL) Hepatic Function Panel (04/27/2025 10:15 AM EDT) Bilirubin, Total 0.4 0.0 - 1.0 mg/dL [facility] Bilirubin, Direct 0.1 0.0 - 0.5 mg/dL [facility] Aspartate Amino Transferase 17 5 - 31 U/L [facility] Alanine Aminotransferase 10 0 - 31 U/L [facility] Total Protein 6.3(L) 6.5 - 8.0 g/dL [facility] Albumin Level 4.2 3.5 - 5.0 g/dL [facility] Alkaline Phosphatase 64 39 - 117 U/L [facility] Blood Venous blood specimen / Unknown 04/27/2025 10:15 AM EDT 04/27/2025 12:00 PM EDT Jazmín Quevedo MD LAB BLOOD ORDERABLES Final Result Performing Organization Address [facility]/ZIP Co de Phone Number [facility] [address] [place] [phone] * (ABNORMAL) Lipid Panel, Standard (04/27/2025 10:15 AM EDT) Triglycerides 141 <150 mg/dL [facility] Comment:Desirable Triglyceri de: less than 150 mg/dLBorderline High Triglyceride 150-199 mg/dLHigh Triglyceride: 200-499 mg/dLVery High Triglyceride: greater than or equal to 5OO mg/dL Cholesterol 193 <200 mg/dL [facility] Comment:Desirable Cholestero l: less than 200 mg/dLBorderline High Cholesterol: 200-239 mg/dLHigh Cholesterol: greater than 239 mg/dL LDL Cholesterol Calculated 121(H) <100 mg/dL [facility] Comment:Desirable LDL: less than 100 mg/dLNear Optimal/Above Optimal LDL: 110- 129 mg/dLBorderline High LDL: 130-159 mg/dLHigh LDL: 160-189 mg/dLVery High LDL: greater than or equal to 190 mg/dL HDL Cholesterol 44 >40 mg/dL [facility] Comment:Desirable HDL: great er than 40 mg/dL Note: This HDL assay may give artificially low results in patients with liver disease. Blood Venous blood specimen / Unknown 04/27/2025 10:15 AM EDT 04/27/2025 12:00 PM EDT us Jazmín Quevedo MD LAB BLOOD ORDERABLES Final Result [facility] [address] [place] [phone] * (ABNORMAL) Basic Metabolic Panel (04/27/2025 10:15 AM EDT) Sodium 139 135 - 145 mmol/L [facility] Potassium 4.1 3.3 - 5.1 mmol/L [facility] Chloride 106 96 - 108 mmol/L [facility] Carbon Dioxide 28 22 - 29 mmol/L [facility] Anion Gap 9(L) 12 - 20 [facility] Urea Nitrogen (BUN) 12 9 - 16 mg/dL [facility] Creatinine, Serum 0.70 0.5 - 1.4 mg/dL [facility] Estimated Glomerular Filt Rate >60 [facility] Comment:Chronic Kidney Disea se: Estimated GFR < 60 mL/min/1.18q7Dbiinn Kidney Disease: Estimated GFR < 15 mL/min/1.73m2 Glucose 98 60 - 115 mg/dL [facility] Calcium 8.6 8.4 - 10.2 mg/dL [facility] Blood Venous blood specimen / Unknown 04/27/2025 10:15 AM EDT 04/27/2025 12:00 PM EDT us Jazmín Quevedo MD LAB BLOOD ORDERABLES Final Result [facility] [address] [place] [phone] * MR Lumbar Spine w/o Contrast (03/25/2025 8:31 AM EDT) Anatomical Region Laterality Modality Spine, L-spine Magnetic Resonan ce 03/25/2025 8:31 AM EDT Narrative 03/25/2025 8:32 AM EDT [address] [address] Magnetic Resonance Report Signed with Glenn Patient: Minal Rodriguez MR#: [id number] 34 : 1985 Acct:[id number] Age/Sex: 40 / F ADM Date: 03/24/25 Loc: HO.MRI Attending Dr: Celena HERBERT Ordering Physician: Celena Brand Date of Service: 03/24/25 Procedure(s): MR lumbar spine wo con Accession Number(s): [id number] cc: Jazmín Quevedo MD; Celena Brand ADDENDUM This document has been electronically signed by: Meir Dozier MD on 03/25/2025 08:31:01 ADDENDUM: Receipt of this report by the clinical staff was confirmed with Tonia Godinez surgical garment assembly supervisor on Mar 25, 2025 10:36:00 EDT. This [...] are patent. L3-4: Broad-based disc bulge with resb-me-fttoqahz facet joint degenerative change. Central canal and [...] Central canal is patent. Mild left-sided and lqvr-rl-hjbwcdqh right-sided neural foraminal narrowing. IMPRESSION: Large right [...] in OV> 03/25/[address] DD/ 0 TD/TT: 03/25/25830 Guide Delegate: Procedure Note Donotuseinterpreter, Image - 03/25/[address] [address] Magnetic Resonance Report Signed with Glenn Patient: Trinidad Rodriguez#: [id number] 34 : 1985Acct:[id number] Age/Sex: 40 / FADM Date: 03/24/25 Loc: HO.MRI Attending Dr: Celena Brand MACHINE FILLER Ordering Physician: Celena Brand Date of Service: 03/24/25 Procedure(s): MR lumbar spine wo con Accession Number(s): [id number] cc: Jazmín Quevedo MD; Celena Brand ADDENDUM This document has been electronically signed by: Meir Dozier MD on 03/25/2025 08:31:01 ADDENDUM: Receipt of this report by the clinical staff was confirmed with Tonia Godinez surgical garment assembly supervisor on Mar 25, 2025 10:36:00 EDT. This [...] are patent. L3-4: Broad-based disc bulge with pslm-rs-vllsbfmu facet joint degenerative change. Central canal and [...] Central canal is patent. Mild left-sided and gltd-ed-rafegjfv right-sided neural foraminal narrowing. IMPRESSION: Large right [...] by Meir Dozier MD in OV> 03/25/25 08 DD/ 0831 TD/TT: 03/25/25 0831 Guide Delegate: [facility] External Provider IMG MRI PROCEDURES Edited Result - Final * XR Chest 2 Views (03/01/2025 4:00 PM EDT) Anatomical Region Laterality Modality Chest Radiographic Heather ging 03/01/2025 4:00 PM EDT Narrative 03/01/2025 4:01 PM EDT [place] [address] XRay Report Signed Patient: Minal Rodriguez MR#: [id number] 34 : 1985 Acct:[id number] Age/Sex: 40 / F ADM Date: 03/01/25 Loc: [facility] Attending Dr: Yeison Erwin MD Ordering Physician: YEISON ERWIN MD Date of Service: 03/01/25 Procedure(s): XR chest 2V Accession Number(s): [id number] cc: YEISON ERWIN MD; Jazmín Quevedo MD CLINICAL HISTORY: atraumatic [...] 03/01/25 1601 DD/ 1600 TD/TT: 03/01/25 1600 Guide Delegate: Procedure Note Donotuseinterpreter, Image - 03/01/[address] [address] XRay Report Signed Patient: Trinidad Rodriguez#: [id number] 32 : 1985Acct:[id number] Age/Sex: 40 / FADM Date: 03/01/25 Loc: HO.XRAY Attending Dr: Yeison Erwin MD Ordering Physician: YEISON ERWIN MD Date of Service: 03/01/25 Procedure(s): XR chest 2V Accession Number(s): [id number] cc: YEISON ERWIN MD; Jazmín Quevedo MD CLINICAL HISTORY: atraumatic [...] 03/01/25 1601 DD/ 1600 TD/TT: 03/01/25 1600 Guide Delegate: Yeison Erwin MD IMG XR PROCEDURES Final Result * [...] EDT) D Dimer High Sensitivity 234 NG/ML [facility] Comment:D-DIMER HS REFERENCE RANGENote: Our [...] ORDERABLES Final Resul t Performing Organization Address [facility] Co de Phone Number [facility] [address] [place] [phone] * Culture, Urine, Routine (03/01/2025 11:58 AM EDT) Urine Urine specimen obtained by clean catch procedure / Unknown 03/01/2025 11:58 AM EDT 03/01/2025 4:10 PM EDT Comment:UACC Narrative [facility] - 03/03/2025 7:45 AM EDT Escherichia coli Quant > 100,000 cfu/mL Escherichia coli: Ampicillin <=2(S) Escherichia coli: Cefazolin (Urine) <=1(S) Escherichia coli: Cefepime <=0.12(S) Escherichia coli: Ceftriaxone <=0.25(S) Escherichia coli: Ciprofloxacin <=0.06(S) Escherichia coli: Gentamicin <=1(S) Escherichia coli: Nitrofurantoin <=16(S) Escherichia coli: Trimethoprim/Sulfamethoxazole <=20(S) Specimen Source: Urine clean catch us Yeison Erwin MD LAB MICROBIOLOGY - GENERAL ORDER FEDERICO Final Result Performing Organization Address [facility] Co de Phone Number [facility] [address] [place] [phone] * BI Mammogram Diagnostic Tomosynthesis Right (12/26/2023 1:15 PM EST) Anatomical Region Laterality Modality Breast Right Mammography 12/26/2023 1:15 PM EST Narrative 12/26/2023 1:52 PM EST [facility] [address] [place], [place] [address] Mammography Report Signed with Glenn Patient: Minal Rodriguez MR#: [id number] 32 : 1985 Acct:[id number] Age/Sex: 38 / F ADM Date: 12/26/23 Loc: HO.MAMMO Attending Dr: Jazmín Quevedo MD Ordering Physician: Jazmín Quevedo MD Results: 3.12MProbably Benign Finding - 12 month F/U Suggested Date of Service: 12/26/23 Follow Up: 12 month diagnos tic follow up Procedure(s): MM tomosynthesis diagnostic RT Accession Number(s): [id number] cc: Jazmín Quevedo MD ADDENDUM ADDENDUM: Typographical [...] in OV> 12/26/23 1348 DD/ 1315 TD/TT: Guide Delegate: Procedure Note Donotuseinterpreter, Image - 12/29/2023 [facility] [address] [place] [address] [place] [address] Mammography Report Signed with Glenn Patient: Perri RodriguezMIR#: [id number] 32 : 1985Acct:[id number] Age/Sex: 38 / FADM Date: 12/26/23 Loc: HO.MAMMO Attending Dr: Jazmín Quevedo MD Ordering Physician: Jazmín Quevedo MD Results: 3.12MProbably Benign Finding - 12 month F/U Suggested Date of Service: 12/26/23Follow Up: 12 month diagnos tic follow up Procedure(s): MM tomosynthesis diagnostic RT Accession Number(s): [id number] cc: Jazmín Quevedo MD ADDENDUM ADDENDUM: Typographical [...] in OV> 12/26/23 1348 DD/ 1315 TD/TT: Guide Delegate: Jazmín Quevedo MD IM BI PROCEDURES Edited R esult - Final * Thinprep PAP, HPV mRNA E6/E7 RFX HPV 16,18/45, Chlamydia/N. Gonorrhoeae (12/23/2022 9:47 AM EST) Clinical Information: NO HX ABNORMAL PAPS [employer] Pait LMP: NONE GIVEN [employer] P[employer] Prev. PAP: NONE GIVEN [employer] Prev. BX: NO [employer]ig[employer] Diagnost SOURCE: None given Lucky Pait Statement Of Adequacy: [employer] Comment: Satisfactory for evaluation. Endocervical/transformation zone component present. Interpretation/Re sult: Negative for intraepithelial lesion or malignancy. [facility] [place] [facility] [employer] Repairer: Ivana est [employer] Comment: RXB, CT(ASCP) CT screening location: [place] [address] (Always Message) Que Press-senset Comment: EXPLANATORY NOTE: The Pap is a [...] HPV nRNA E6/E7 Not Detected Not Detected [employer] Comment: Methodology: Salvage Winder And Inspector-Mediated Amplification This assay detects E6/E7 viral messenger RNA (mRNA) from 14 high-risk HPV types (16,18,31,33,35,39,45,51,52,56,58,59,66,68). Cervical sources are required for HPV testing. If a vaginal source from a patient who has had a total hysterectomy with removal of cervix was submitted, please contact the testing laboratory for alternative testing options. For additional information, please refer to http://[employer] Gang/faq/KVS160z0 (This link if provided for information/ educational purposes only.) Chlamydia trachomatis RNA, TMA, Urogenital NOT DETECTED NOT DETECTED [employer] Neisseria gonorrhoeae RNA, TMA, Urogenital NOT DETECTED NOT DETECTED [employer] (Always Message) Que Synapse Comment: The analytical performance characteristics of this assay, when used to test SurePath(TM) specimens have been determined by [facility]. The modifications have not been cleared or approved by the FDA. This assay has been validated pursuant to the CLIA regulations and is used for clinical purposes. For additional information, please refer to https://[employer]/faq/EAT535 (This link is being provided for information/ educational purposes only.) Cytology specimen container (physical object) 12/23/2022 9:47 AM EST 12/24/2022 10:14 AM EST Jazmín Quevedo MD LAB PATHOLOGY ORDERABLES F inal Result [facility] [address], [place] [address] [facility] [place] [employer] [address] [facility], ([address]) [place] [address] from Last 3 Months or Most Recently Relevant to Health Maintenance [facility] Advance Directives Documents on File Type Date Recorded Patient Core Setter Expl anation Advance Directives and Living Will 04/27/2025 1:38 PM Health Care Proxy Care Teams Sales Representative Trainee Relationship Specialty Start Date End Date Jazmín Quevedo MD [address] [place] [address] PCP - General Family Medicine 10/20/[address] [place] [address] Neurosurgery 03/29/25
== END 2025-05-23 09:52 | disposition home or self-care (01) ==
LOC: HO.HNS 09:36
PROVIDERS: PCP Family Medicine; Visit Provider Physician Assistant
DX: Z98.890 Other specified postprocedural states (principal)
CPT/HCPCS: 99024

== ENCOUNTER → 2025-05-23 09:35 | Outpatient (BNVA) | payer MEDICAID, SELFPAY | PROVIDERS: PCP Family Medicine; Visit Provider Physician Assistant | DX: Z98.890 Other specified postprocedural states (principal) | CPT/HCPCS: 99212 ==

== ENCOUNTER 2025-07-04 08:59 | Outpatient (AMB) | payer MEDICAID, SELFPAY ==
--- NOTE | 2025-07-04 09:03 | A.SPINEOV_ITS ---
Intake Visit Reasons: 2nd post op Intake Note: Ms. Rodriguez is here today for her 2nd post op. Realtime Captioner Required: No Allergies No Known Allergies Allergy (Mild, Verified 07/04/25 09:04) UNKNOWN Assessment & Plan Assessment & Plan (1) S/P lumbar microdiscectomy: Code(s): Z98.890 - Other specified postprocedural states Category: Surgical Plan Minal comes in today for her 2nd postop visit after having Right L4-5 lumbar microdiskectomy completed by Dr. Adams a few weeks ago. To recap during her last visit she reported that her shooting radicular pain had resolved since her surgery. She was overall doing very well. Unfortunately about a week after her last visit the patient reports that she began experiencing fairly significant low back pain from the incision site down to her tailbone. She states that the pain is well localized to her low back, and worsens with positional changes such as rising from a seated position. It also worsens with standing. She rates it at about a 6/10 constant, with flare-ups leading to much worse pain. She denies any shooting radicular pain down her right lower extremity. No new neurological deficits. The patient ambulates well and rises from a seated position without difficulty. Her posterior incision site is closed and well healed. I would like to send Minal for a set of flexion/extension x-rays to rule out instability secondary to microdiskectomy. We will review these before she leaves today. Assuming they are unremarkable, I will attempt to send her for a course of physical therapy and then follow up with her in clinic thereafter. Kyle Adams MD,PhD [facility] Coding Orders: Orders XR lumbar spine 4V min Today Z98.890 - Other specified postprocedural states PT Evaluation and Treatment Today M54.50 - Low back pain, unspecified Coding Level of Care Code Global (83634) Diagnoses S/P lumbar microdiscectomy Z98.890
--- OUTSIDE RECORDS SUMMARY | 2025-07-04 10:29 | XMS_ITS | Encounter Summary ---
Author Organization [employer] Address [address] [facility] [address] [place] [address] Care Team Providers Care Quality Assurance Analyst Name Role Phone Jazmín Quevedo MD Primary Care Provider [phone] Ar Adams Unavailable [phone] Encounter Details Date Type Department Care Team ([facility] st Contact Info) Description 07/04/2025 Orders Only [facility] External Provider, [facility] Social History Tobacco Use Types Packs/Day Years Used Date Smoking Tobacco: Every Day Cigarettes Passive Smoke Exposure: Current Smokeless Tobacco: Never Alcohol Answer Date Recorded How often do [...] Q2 Not on file 04/19/2025 Comments Unknown Sex and Gender Information Value Date Recorded Sex Assigned at Female 08/19/2022 10:19 AM EDT Legal Sex Female 10:19 AM EDT Gender Identity Female 08/19/2022 10:19 AM EDT Sexual Orientation Choose not to disclose 2022 8:18 AM EST Sexual Orientation Straight 12/23/2022 8: 18 AM EST documented as of this encounter Plan of Treatment Upcoming Encounters Date Type Department Care Team (Late st Contact Info) Description 07/18/2025 11:00 AM EDT Immunization [facility] [address] [place] [phone] documented as of this encounter Procedures Procedure Name Priority Date/Time Associated Diagnosis Comments XR LUMBAR SPINE COMPLETE 4+ VIEWS Routine 07/04/2025 9:22 AM EDT documented in this encounter Results * XR Lumbar Spine Complete 4+ Views (07/04/2025 9:22 AM EDT) Anatomical Region Laterality Modality Spine, L-spine Radiographic Heather ging 07/04/2025 9:22 AM EDT Narrative 07/04/2025 9:37 AM EDT [facility] [address] [place] [address] XRay Report Signed Patient: Minal Rodriguez MR#: [id number] 32 : 1985 Acct:[id number] Age/Sex: 40 / F ADM Date: 07/04/25 Loc: HO.HOSX Attending Dr: Kyle LEVIN Ordering Physician: Kyle Diaz Date of Service: 07/04/25 Procedure(s): XR lumbar spine 4V min Accession Number(s): [id number] cc: Jazmín Quevedo MD; Kyle Diaz Reason for Exam: Z98.890 - Other specified postprocedural states EXAMINATION: XR LUMBOSACRAL SPINE CLINICAL INFORMATION: Z98.890 - Other specified postprocedural states COMPARISON: 12/09/2024. TECHNIQUE: 4 views of the lumbar spine, inclusive of flexion and extension views, were obtained. FINDINGS: There is a mild right convex lumbar scoliosis is a mild rotatory component, apex at L3. There is a normal lordosis. No fracture, compression deformity, or suspicious bone lesion. Moderate disc degeneration is evident at L4-5 and L5-S1. Normal facet alignment. Mild degenerative facet changes present. Neutral view demonstrates a 2 mm retrolisthesis of L4 on L5, likely degenerative. No additional subluxation. No instability on flexion and extension views. No soft tissue abnormalities. XR/XR lumbar spine 4V min IMPRESSION: 1. No acute bony abnormalities of the lumbar spine. 2. Mild right convex scoliosis and mild to moderate degenerative spondylosis most notable at L3-S1. 3. There is no evidence of instability on flexion and extension views. Electronically signed by: Torrey Rios MD 07/04/2025 09:35 AM EDT RP Dictated By: Torrey Rios MD Signed By: <Electronically signed by Torrey Rios MD in OV> 07/04/2535 DD/ 09 TD/TT: 07/04/25 09 Knitter Operator: Procedure Note Donotuseinterpreter, Image - 07/04/2025 [facility] [address] [place] [address] Drive [address] [place] [address] XRay Report Signed Patient: Perri RodriguezORR#: [id number] 32 : 1985Acct:[id number] Age/Sex: 40 / FADM Date: 07/04/25 Loc: HO.HOSX Attending Dr: Kyle LEVIN Ordering Physician: Kyle Diaz Date of Service: 07/04/25 Procedure(s): XR lumbar spine 4V min Accession Number(s): [id number] cc: Jazmín Quevedo MD; Kyle Diaz Reason for Exam: Z98.890 - Other specified postprocedural states EXAMINATION: XR LUMBOSACRAL SPINE CLINICAL INFORMATION: Z98.890 - Other specified postprocedural states COMPARISON: 12/09/2024. TECHNIQUE: 4 views of the lumbar spine, inclusive of flexion and extension views, were obtained. FINDINGS: There is a mild right convex lumbar scoliosis is a mild rotatory component, apex at L3. There is a normal lordosis. No fracture, compression deformity, or suspicious bone lesion. Moderate disc degeneration is evident at L4-5 and L5-S1. Normal facet alignment. Mild degenerative facet changes present. Neutral view demonstrates a 2 mm retrolisthesis of L4 on L5, likely degenerative. No additional subluxation. No instability on flexion and extension views. No soft tissue abnormalities. XR/XR lumbar spine 4V min IMPRESSION: 1. No acute bony abnormalities of the lumbar spine. 2. Mild right convex scoliosis and mild to moderate degenerative spondylosis most notable at L3-S1. 3. There is no evidence of instability on flexion and extension views. Electronically signed by: Torrey Rios MD 07/04/2025 09:35 AM EDT Dictated By: Torrey Rios MD Signed By: <Electronically signed by Torrey Rios MD in OV> 07/04/25934 DD/ 1 TD/TT: 07/04/25925 Knitter Operator: [facility] External Provider IMG XR PROCEDURES Edited Result - Final documented in this encounter Visit Diagnoses Not on filedocumented in this encounter Additional Health Concerns Assessment Noted Time PHQ-9 Depression Total Score: 3 04/27/20 25 10:02 AM EDT documented as of this encounter Care Teams Quality Assurance Analyst Relationship Specialty Start Date End Date Jazmín Quevedo MD [address] [place] [address] PCP - General Family Medicine 10/20/18 Ar Adams [address] [place] [address] [place] [address] Neurosurgery 03/29/25 documented as of this encounter
--- OUTSIDE RECORDS SUMMARY | 2025-07-04 10:29 | XMS_ITS | Clinical Summary ---
Author Organization [employer] Address [address] [facility] [place] [address] [place] [address] Care Team Providers Care Nipple Threader Name Role Phone Jazmín Quevedo MD Primary Care Provider [phone] Ar Adams Unavailable [phone] Allergies No known active allergies Medications cholecalciferol (Vitamin D-3) 50 MCG (1999 UT) capsuleIndicati ons:Vitamin D deficiency Take 1 capsule (50 mcg) by mouth Once per day. 90 capsule 3 04/27/2025 Active Active Problems Problem Noted Date Diagnosed Date Tobacco dependence 03/01/2025 Overview (04/27/2025): -Cigg/day: 3-5 cigarettes/day -Age started: 13 -Total years smokin -Pack year history: Encouraged smoking cessation resources such as pharmacomtherapy, [facility] smoking cessation group, and [facility] pharmacy smoking cessation clinic Discussed USPSTF [...] as pharmacomtherapy, [facility] smoking cessation group, and [facility] pharmacy smoking cessation clinic Discussed USPSTF [...] care facilitated by Demetrio -dental home is [facility] -health care proxy given and filed 04/27/25 Assessment & Plan (04/27/2025 10:29 AM EDT): -next comprehensive annual evaluation due after 04/27/26 -eye care facilitated by Demetrio -dental home is [facility] -health care proxy given and filed 04/27/25 [...] 10/02/2022 Overview (10/02/2022): -Dx on exam 10/02/2022 -Eminence of elbow brace Assessment & Plan (10/02/2022 12:50 PM EST): -Dx on exam 10/02/2022 -Eminence of elbow brace Vitamin D deficiency 09/30/2022 Overview (05/12/2025): Lab Results Component Value Date [id number] 12.5 (L) 04/27/2025 -ordered Vit D level [...] Encounters Date Type Department Care Team Description 07/04/2025 Orders Only [facility] External Provider, [facility] 05/12/2025 11:15 AM EDT Office Visit [address] [address] Jazmín Quevedo MD Acute midline low back pain without sciatica (Primary Dx); Class 2 obesity due to excess calories without serious comorbidity with body mass index (BMI) of 36.0 to 36.9 in adult; Dietary counseling; Exercise counseling; Breast screening; Encounter for immunization 05/12/2025 Travel 05/11/2025 Telephone [facility] [address] [address] Peggy Lopez [place] 05/10/2025 Travel 05/09/[address] [address] Jazmín Quevedo MD Immunizations 05/02/[address] [address] Jazmín Quevedo MD Appointment Request 04/28/2025 Orders Only [facility] External Provider, [facility] 04/27/2025 9:45 AM EDT Office Visit [address] [address] Jazmín Quevedo MD Acute midline low back pain without sciatica (Primary Dx); Vitamin D deficiency; Tobacco dependence; Class 1 obesity due to excess calories without serious comorbidity with body mass index (BMI) of 33.0 to 33.9 in adult; Dietary counseling; Exercise counseling; Screening cholesterol level; Routine screening for STI (sexually transmitted infection); Other specified health status 04/27/2025 Results Follow-Up [facility] [address] [place] [address] Jazmín Quevedo MD Hepatic Function Panel, Lipid Panel, Standard, Basic Metabolic Panel, Additional followed-up results: 5 04/27/2025 Travel 04/26/2025 Telephone [facility] [address] [place] [address] Jazmín Quevedo MD CHART PREP 04/20/2025 Travel 04/19/2025 Patient Outreach [facility] [address] [place] [address] Jazmín Quevedo MD Pre-visit Planning (SDOH negative, Tobacco screening positive. ) from Last 3 Months Immunizations Immunization Administration Dates Next Due DTaP 08/31/2013 HPV 9-Valent 05/16/2025 HepB-CpG 05/12/2025 Influenza injectable quadriv alent IIV4 with preservative 10/02/2022,07/13/2018,07/07/2017 Influenza injectable quadriv alent preservative free 09/26/2020,09/09/2019 Influenza, Split (incl. asha fied surface antigen) 08/02/2013,11/10/2012 Influenza, seasonal, injecta ble, preservative free 09/12/2014 MMR 10/17/2017 Pfizer Covid-19 Vaccine 12+ 03/02/2021, 1 Pneumococcal Conjugate PCV 20 05/12/2025 TD (adult), [...] Info) Description 07/18/2025 11:00 AM EDT Immunization [facility] [address] [place] [address] Health Maintenance Due Date Last Done Comments Diagnostic Breast Imaging 12/25/2024 12/26/2023, Mammogram 01/17/2025 12/26/2023, 06/20, 06/11/2023 Hepatitis B Vaccines (2 of 2 - CpG 2-dose series) 06/09/2025 05/12/2025 HPV Vaccines (2 - 3-dose series) 06/13/2025 05/16/2025 COVID-19 Vaccine ( - season) 2025 03/02/2021, 02/09/2021 Influenza Vaccine (#1) 2025 , 09/26/2020, 09/09/2019, [...] 4+ VIEWS Routine 07/04/2025 9:22 AM EDT FL GUIDANCE IN OR Routine 04/28/2025 12: [...] Routine 10:15 AM EDT Screening cholesterol level BI MAMMOGRAM DIAGNOSTIC TOMOSYNTHESIS RIGHT Routine 12/26/2023 1:15 PM EST THINPREP PAP, HPV MRNA E6/E7 RFX HPV 16,18/45, CHLAMYDIA/N.GONORRHOEA E Routine 12/23/2022 9:47 AM EST Pap smear for cervical cancer screening from Last 3 Months or Most Recently Relevant to Health Maintenance Results * XR Lumbar Spine Complete 4+ Views (07/04/2025 9:22 AM EDT) Anatomical Region Laterality Modality Spine, L-spine Radiographic Heather ging 07/04/2025 9:22 AM EDT Narrative 07/04/2025 9:37 AM EDT [facility] [address] [place] [address] [place] [address] XRay Report Signed Patient: Minal Rodriguez MR#: [id number] 34 : 1985 Acct:[id number] Age/Sex: 40 / F ADM Date: 07/04/25 Loc: HO.HOSX Attending Dr: Kyle LEVIN Ordering Physician: Kyle Diaz Date of Service: 07/04/25 Procedure(s): XR lumbar spine 4V min Accession Number(s): [id number] cc: Jazmín Quevedo MD; Kyle Diaz Reason [...] Torrey Rios MD in OV> 07/04/2535 DD/ 1 TD/TT: 07/04/25925 Chip Tuner: Procedure Note Donotuseinterpreter, Image - 07/04/2025 [facility] [address] [place] [address] [place] [address] XRay Report Signed Patient: Trinidad Rodriguez#: [id number] 34 : 1985Acct:[id number] Age/Sex: 40 / FADM Date: 07/04/25 Loc: HO.HOSX Attending Dr: Kyle LEVIN Ordering Physician: Kyle Diaz Date of Service: 07/04/25 Procedure(s): XR lumbar spine 4V min Accession Number(s): [id number] cc: Jazmín Quevedo MD; Kyle Diaz Reason [...] Torrey Rios MD in OV> 07/04/2535 DD/ 1 TD/TT: 07/04/25925 Chip Tuner: [facility] External Provider IMG XR PROCEDURES Edited Result - Final * FL Guidance in OR (04/28/2025 12:40 PM EDT) Anatomical Region Laterality Modality X-Ray Angiograph y 04/28/2025 12:4 0 PM EDT Narrative 04/28/2025 1:33 PM EDT [place] [address] Fluoroscopy Report Signed Patient: Minal Rodriguez MR#: [id number] 34 : 1985 Acct:[id number] Age/Sex: 40 / F ADM Date: 04/28/25 Loc: HO.SSS Attending Dr: Ar Adams MD, PhD Ordering Physician: Ar Adams MD, PhD Date of Service: 04/28/25 Procedure(s): FL guidance in OR Accession Number(s): [id number] cc: Jazmín Quevedo MD; Ar Adams MD, [...] Caleb Huang MD 04/28/2025 01:30 PM EDT RP Dictated By: Caleb Huang MD Signed By: <Electronically signed by Caleb Huang MD in OV> 04/28/25 1330 DD/ 1240 TD/TT: 04/28/25 1311 Chip Tuner: Procedure Note Donotuseinterpreter, Image - 04/28/2025 [place] [address] Fluoroscopy Report Signed Patient: Trinidad Rodriguez#: [id number] 34 : 1985Acct:[id number] Age/Sex: 40 / FADM Date: 04/28/25 Loc: HO.SSS Attending Dr: Ar Adams MD, PhD Ordering Physician: Ar Adams MD, PhD Date of Service: 04/28/25 Procedure(s): FL guidance in OR Accession Number(s): [id number] cc: Jazmín Quevedo MD; Ar Adams MD, [...] Caleb Huang MD 04/28/2025 01:30 PM EDT RP Dictated By: Caleb Huang MD Signed By: <Electronically signed by Caleb Huang MD in OV> 04/28/25 1330 DD/ 1240 TD/TT: 04/28/25 1311 Chip Tuner: [facility] External Provider IMG IR PROCEDURES Edited Result - Final * Syphilis Screen (04/27/2025 10:15 AM EDT) Syphilis Screen Nonreactive Nonreactive [facility] Blood Venous blood specimen / Unknown 04/27/2025 10:15 AM EDT 04/27/2025 12:00 PM EDT Jazmín Quevedo MD LAB BLOOD ORDERABLES Final Result [facility] [address] [place] [phone] * (ABNORMAL) Vitamin D, 25-Hydroxy, Total, Immunoassay (04/27/2025 10:15 AM EDT) Vitamin D 25-OH Total 12.5(L) >30 ng/mL [facility] Comment: Health Based Reference Values*< 20 ng/mL Nnxtyypzg20-16 ng/mL Insufficient> 30 ng/mL Sufficient*Brock LACY. N [...] Quevedo MD LAB BLOOD ORDERABLES Final Result [facility] [address] [place] [address] [phone] * CBC auto differential (04/27/2025 10:15 AM EDT) White Blood Count 8.0 4.8 - 10.8 X10*3/uL [facility] Red Blood Count 4.74 4.20 - 5.50 X10*6/uL [facility] Hemoglobin 14.0 12.0 - 16.0 g/dl [facility] Hematocrit 43.1 37.0 - 47.0 % [facility] Mean Corpuscular Volume 90.9 80.0 - 98.0 fL [facility] Mean Corpuscular Hemoglobin 29.5 27.0 - 33.0 pg [facility] Mean Corpuscular HGB Conc 32.5 31.0 - 35.0 g/dl [facility] Red Cell Distribution Width 13.1 11.0 - 16.0 % [facility] Platelet Count 217 160 - 400 X10*3/uL [facility] Mean Platelet Volume 9.4 9.4 - 12.3 fL [facility] Neutrophils Percent Auto 70.1 45 - 73 % [facility] Imm Gran Pct Auto 0.3 0.0 - 0.4 % [facility] Lymphocytes Percent Auto 22.0 20 - 40 % [facility] Monocytes Percent Auto 6.2 2 - 11 % [facility] Eosinophils Percent Auto 1.0 0 - 4 % [facility] Basophils Percent Auto 0.4 0 - 2 % [facility] NRBC Pct Auto 0.0 0.0 - 0.2 /100WBC [facility] Neutrophils Absolute Auto 5.6 2.0 - 8.3 x10*3/uL [facility] Imm Gran Abs Auto 0.02 0.00 - 0.03 X10*3/uL [facility] Lymphocytes Absolute Auto 1.8 1.2 - 4.9 X10*3/uL [facility] Monocytes Absolute Auto 0.5 0.1 - 1.2 X10*3/uL [facility] Eosinophils Absolute Auto 0.1 0.0 - 0.4 X10*3/uL [facility] Basophils Absolute Auto 0.0 0.0 - 0.2 X10*3/uL [facility] NRBC Abs Auto 0.000 0.0 - 0.012 X10*3/uL [facility] Blood Venous blood specimen / Unknown 04/27/2025 10:15 AM EDT 04/27/2025 11:53 AM EDT Jazmín Quevedo MD LAB BLOOD ORDERABLES Final Result Performing Organization Address City/[facility]/ZIP Co de Phone Number [facility] [address] [place] [phone] * Hepatitis C Antibody with Reflex to HCV, RNA, Quantitative, Real-Time PCR (04/27/2025 10:15 AM EDT) Hepatitis C Antibody Nonreactive Nonreactive [facility] Comment:Antibodies to HCV no t detected; does not exclude early acuteHCV infection. Blood Venous blood specimen / Unknown 04/27/2025 10:15 AM EDT 04/27/2025 12:00 PM EDT Jazmín Quevedo MD LAB BLOOD ORDERABLES Final Result Performing Organization Address [facility]/ZIP Co de Phone Number [facility] [address] [place] [phone] * HIV-1/2 Antigen and Antibodies, Fourth Generation, with Reflexes (04/27/2025 10:15 AM EDT) HIV AB/AG Nonreactive Nonreactive [facility] Comment:HIV-1 p24 Ag and/or HIV-1/HIV-2 Ab not detected.A test result that is nonreactive does not exclude thepossibility of exposure to or infection with HIV-1 and/orHIV-2. Nonreactive results in this assay for individualswith prior exposure to HIV-1 and/or HIV-2 may be due toantigen and antibody levels that are below the limit ofdetection of this assay.The Apokalyyis HIV Ag/Ab Combo assay result andsupplemental assay results should be interpreted inconjunction with the patient's clinical presentation,history and other laboratory results. If the results areinconsistent with clinical evidence, additional testing issuggested to confirm the result. Blood Venous blood specimen / Unknown 04/27/2025 10:15 AM EDT 04/27/2025 12:00 PM EDT us Jazmín Quevedo MD LAB BLOOD ORDERABLES Final Result [facility] [address] [place] [phone] * (ABNORMAL) Hepatic Function Panel (04/27/2025 10:15 AM EDT) Bilirubin, Total 0.4 0.0 - 1.0 mg/dL [facility] Bilirubin, Direct 0.1 0.0 - 0.5 mg/dL [facility] Aspartate Amino Transferase 17 5 - 31 U/L [facility] Alanine Aminotransferase 10 0 - 31 U/L [facility] Total Protein 6.3(L) 6.5 - 8.0 g/dL [facility] Albumin Level 4.2 3.5 - 5.0 g/dL [facility] Alkaline Phosphatase 64 39 - 117 U/L [facility] Blood Venous blood specimen / Unknown 04/27/2025 10:15 AM EDT 04/27/2025 12:00 PM EDT Jazmín Quevedo MD LAB BLOOD ORDERABLES Final Result Performing Organization Address [facility]/ZIP Co de Phone Number [facility] [address] [place] [phone] * (ABNORMAL) Lipid Panel, Standard (04/27/2025 10:15 AM EDT) Triglycerides 141 <150 mg/dL [facility] Comment:Desirable Triglyceri de: less than 150 mg/dLBorderline High Triglyceride 150-199 mg/dLHigh Triglyceride: 200-499 mg/dLVery High Triglyceride: greater than or equal to 5OO mg/dL Cholesterol 193 <200 mg/dL [facility] Comment:Desirable Cholestero l: less than 200 mg/dLBorderline High Cholesterol: 200-239 mg/dLHigh Cholesterol: greater than 239 mg/dL LDL Cholesterol Calculated 121(H) <100 mg/dL [facility] Comment:Desirable LDL: less than 100 mg/dLNear Optimal/Above Optimal LDL: 110- 129 mg/dLBorderline High LDL: 130-159 mg/dLHigh LDL: 160-189 mg/dLVery High LDL: greater than or equal to 190 mg/dL HDL Cholesterol 44 >40 mg/dL [facility] Comment:Desirable HDL: great er than 40 mg/dL Note: This HDL assay may give artificially low results in patients with liver disease. Blood Venous blood specimen / Unknown 04/27/2025 10:15 AM EDT 04/27/2025 12:00 PM EDT Jazmín Quevedo MD LAB BLOOD ORDERABLES Final Result Performing Organization Address City/[facility]/ZIP Co de Phone Number [facility] [address] [place] [address] [phone] * (ABNORMAL) Basic Metabolic Panel (04/27/2025 10:15 AM EDT) Sodium 139 135 - 145 mmol/L [facility] Potassium 4.1 3.3 - 5.1 mmol/L [facility] Chloride 106 96 - 108 mmol/L [facility] Carbon Dioxide 28 22 - 29 mmol/L [facility] Anion Gap 9(L) 12 - 20 [facility] Urea Nitrogen (BUN) 12 9 - 16 mg/dL [facility] Creatinine, Serum 0.70 0.5 - 1.4 mg/dL [facility] Estimated Glomerular Filt Rate >60 [facility] Comment:Chronic Kidney Disea se: Estimated GFR < 60 mL/min/1.37c1Jyzlxi Kidney Disease: Estimated GFR < 15 mL/min/1.73m2 Glucose 98 60 - 115 mg/dL [facility] Calcium 8.6 8.4 - 10.2 mg/dL [facility] Blood Venous blood specimen / Unknown 04/27/2025 10:15 AM EDT 04/27/2025 12:00 PM EDT Jazmín Quevedo MD LAB BLOOD ORDERABLES Final Result [facility] [address] [place] [address] [phone] * BI Mammogram Diagnostic Tomosynthesis Right (12/26/2023 1:15 PM EST) Anatomical Region Laterality Modality Breast Right Mammography 12/26/2023 1:1 5 PM EST Narrative 12/26/2023 1:52 PM EST [facility] [address] [place] [address] [place] [address] Mammography Report Signed with Glenn Patient: Minal Rodriguez MR#: [id number] 34 : 1985 Acct:[id number] Age/Sex: 38 / F ADM Date: 12/26/23 Loc: HO.MAMMO Attending Dr: Jazmín Quevedo MD Ordering Physician: Jazmín Quevedo MD Results: 3.12MProbably Benign Finding - 12 month F/U Suggested Date of Service: 12/26/23 Follow Up: 12 month diagnos tic follow up Procedure(s): MM tomosynthesis diagnostic RT Accession Number(s): [id number] cc: Jazmín Quevedo MD ADDENDUM ADDENDUM: Typographical [...] in OV> 12/26/23 1348 DD/ 1315 TD/TT: Chip Tuner: Procedure Note Donotuseinterpreter, Image - 12/29/2023 [facility] [address] [place] [address] Mammography Report Signed with Addenda Patient: Perri RodriguezSC[place]#: [id number] 34 : 1985Acct:[id number] Age/Sex: 38 / FADM Date: 12/26/23 Loc: HO.MAMMO Attending Dr: Jazmín Quevedo MD Ordering Physician: Jazmín Quevedo MD Results: 3.12MProbably Benign Finding - 12 month F/U Suggested Date of Service: 12/26/23Follow Up: 12 month diagnos tic follow up Procedure(s): MM tomosynthesis diagnostic RT Accession Number(s): [id number] cc: Jazmín Quevedo MD ADDENDUM ADDENDUM: Typographical [...] in OV> 12/26/23 1348 DD/ 1315 TD/TT: Chip Tuner: us Jazmín Quevedo MD [facility] BI PROCEDURES Edited R esult - Final * Thinprep PAP, HPV mRNA E6/E7 RFX HPV 16,18/45, Chlamydia/N. Gonorrhoeae (12/23/2022 9:47 AM EST) Clinical Information: NO HX ABNORMAL PAPS [facility] LMP: NONE GIVEN [facility] Villaget Prev. PAP: NONE GIVEN [facility] [place] [employer] Prev. BX: NO [facility] [place] [facility] SOURCE: None given Kijamii Villaget Statement Of Adequacy: [facility] [place] [facility] [facility] Comment: Satisfactory for evaluation. Endocervical/transformation zone component present. Interpretation/Re sult: Negative for intraepithelial lesion or malignancy. [facility] [place] [facility] Auto Damage Trainee: Ivana Kliqed Comment: RXB, CT(ASCP) CT screening location: [place] [address] (Always Message) [facility] Comment: EXPLANATORY NOTE: The Pap is a [...] HPV nRNA E6/E7 Not Detected Not Detected [facility] Comment: Methodology: Backup Engineer-Mediated Amplification This assay detects E6/E7 viral messenger RNA (mRNA) from 14 high-risk HPV types (16,18,31,33,35,39,45,51,52,56,58,59,66,68). Cervical sources are required for HPV testing. If a vaginal source from a patient who has had a total hysterectomy with removal of cervix was submitted, please contact the testing laboratory for alternative testing options. For additional information, please refer to http://education.LinguaLeo/faq/ (This link if provided for information/ educational purposes only.) Chlamydia trachomatis RNA, TMA, Urogenital NOT DETECTED NOT DETECTED [facility] Neisseria gonorrhoeae RNA, TMA, Urogenital NOT DETECTED NOT DETECTED [facility] (Always Message) [facility] [employer] [place] [facility] Comment: The analytical performance characteristics of this assay, when used to test SurePath(TM) specimens have been determined by [facility]. The modifications have not been cleared or approved by the FDA. This assay has been validated pursuant to the CLIA regulations and is used for clinical purposes. For additional information, please refer to https://education.LinguaLeo/faq/GPX671 (This link is being provided for information/ educational purposes only.) Cytology specimen container (physical object) 12/23/2022 9:47 AM EST 12/24/2022 10:14 AM EST Jazmín Quevedo MD LAB PATHOLOGY ORDERABLES F inal Result [facility] [address] [facility], [facility], [place] [address] [facility] [place] [facility] [address] [facility], ([address]) [place] [address] from Last 3 Months or Most Recently Relevant to Health Maintenance Insurance [facility] C3 Advance Directives Documents on File Type Date Recorded 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
--- OUTSIDE RECORDS SUMMARY | 2025-07-04 10:29 | XMS_ITS | Encounter Summary ---
Author Organization [employer] Address [address] [place] [address] Care Team Providers Care Baby Doctor Name Role Phone Jazmín Quevedo MD Primary Care Provider [phone] Ar Adams Unavailable [phone] Reason for Visit * Reason Comments Med Refill Encounter Details Date Type Department Care Team ([facility] Contact Info) Description 03/10/2025 Refill [facility] [address] [place] [address] Yeison Erwin MD [address] [place] [address] Social History Tobacco Use Types Packs/Day Years [...] Info) Description 07/18/2025 11:00 AM EDT Immunization [facility] [address] [place] [address] documented as of this encounter Visit Diagnoses Not on filedocumented in this encounter Additional Health Concerns Assessment Noted Time PHQ-9 Depression Total Score: 0 12/24/19 23 9:04 AM EST documented as of this encounter Care Teams Baby Doctor Relationship Specialty Start Date End Date Jazmín Quevedo MD [address] [place] [address] PCP - General Family Medicine 10/20/18 Ar Adams [address] [place] [address] Neurosurgery 03/29/25 documented as of this encounter
--- OUTSIDE RECORDS SUMMARY | 2025-07-04 10:29 | XMS_ITS | Encounter Summary ---
Author Organization [employer] Address [address] [place] [address] 7t [place] [address] Care Team Providers Care County Historian Name Role Phone Jazmín Quevedo MD Primary Care Provider [phone] Ar Adams Unavailable [phone] Reason for Visit * Reason Comments Med Refill Encounter Details Date Type Department Care Team (Late st Contact Info) Description 04/15/[address] [facility] [address] [place], [place] [phone] Jazmín Quevedo MD [address] [place] [phone] Social History Tobacco Use Types Packs/Day Years [...] Info) Description 07/18/2025 11:00 AM EDT Immunization [facility] [address] [place], [place] [phone] documented as of this encounter Visit Diagnoses Not on filedocumented in this encounter Additional Health Concerns Assessment Noted Time PHQ-9 Depression Total Score: 0 12/24/19 23 9:04 AM EST documented as of this encounter Care Teams County Historian Relationship Specialty Start Date End Date Jazmín Quevedo MD [address] [place] [address] PCP - General Family Medicine 10/20/18 Ar Adams [address] [place] [address] [address] [place] [address] Neurosurgery 03/29/25 documented as of this encounter
== END 2025-07-04 09:45 | disposition home or self-care (01) ==
LOC: HO.HNS 08:59
PROVIDERS: PCP Family Medicine; Visit Provider Physician Assistant
DX: Z98.890 Other specified postprocedural states (principal)
CPT/HCPCS: 99024

== ENCOUNTER 2025-07-04 08:59 | Outpatient (REF) | payer MEDICAID, SELFPAY ==
--- NOTE | ~2025-07-04 | XR_ITS ---
EXAMINATION: XR LUMBOSACRAL SPINE CLINICAL INFORMATION: Z98.890 - Other specified postprocedural states COMPARISON: 12/09/2024. TECHNIQUE: 4 views of the lumbar spine, inclusive of flexion and extension views, were obtained. FINDINGS: There is a mild right convex lumbar scoliosis is a mild rotatory component, apex at L3. There is a normal lordosis. No fracture, compression deformity, or suspicious bone lesion. Moderate disc degeneration is evident at L4-5 and L5-S1. Normal facet alignment. Mild degenerative facet changes present. Neutral view demonstrates a 2 mm retrolisthesis of L4 on L5, likely degenerative. No additional subluxation. No instability on flexion and extension views. No soft tissue abnormalities. XR/XR lumbar spine 4V min IMPRESSION: 1. No acute bony abnormalities of the lumbar spine. 2. Mild right convex scoliosis and mild to moderate degenerative spondylosis most notable at L3-S1. 3. There is no evidence of instability on flexion and extension views. Electronically signed by: Torrey Rios MD 07/04/2025 09:35 AM EDT
== END 2025-07-04 09:00 | disposition home or self-care (01) ==
LOC: HO.HOSX 08:59
PROVIDERS: PCP Family Medicine; Visit Provider Physician Assistant
DX: M54.50 Low back pain, unspecified (principal); Z98.890 Other specified postprocedural states
CPT/HCPCS: 72110; 99212

== ENCOUNTER → 2025-07-04 09:22 | Outpatient (BNV) | payer MEDICAID, SELFPAY | PROVIDERS: PCP Family Medicine; Visit Provider Radiology Diagnostic Radiology | DX: M47.817 Spondylosis without myelopathy or radiculopathy, lumbosacral region (principal) | CPT/HCPCS: 72110 ==

== ENCOUNTER 2025-08-03 07:56 | Outpatient (RCR) | payer MEDICAID, SELFPAY ==
--- NOTE | 2025-08-03 09:12 | MHC.PT.EP ---
[facility] [place] Office [place] Office [place] Office [address] Moises Vail [address] [phone] F: [phone] F: [phone] F: [phone] F: [phone] Physical Therapy Plan of Care Date of Evaluation: 08/03/25 Date of Surgery: Diagnosis: Low Back Pain, unspecified Lumbago. Patient has new low back pain starting about a month after Right L4-L5 lumbar microdiskectomy on 04/28/25 Assessment: Pt is a pleasant and motivated 40yo F who presents to PT s/p Right L4-L5 lumbar microdiskectomy with Dr. Adams on 04/28/25. She presents to PT with current impairments in pain, decreased ROM, decreased core stabilization, decreased hip/glute strength, soft tissue restrictions, and impaired posture/body mechanics. LE sensation and strength are equal and intact. She is limited functionally by prolonged standing, prolonged standing, prolonged walking, bending, and sleeping. She is an excellent candidate for skilled PT in order to address current impairments to facilitate return to PLOF. She is recommended to be seen 2x/week for 4 weeks and will be reassessed Frequency and Duration: The patient will be seen 2x/week for 4 weeks Short Term Goals: Pt will be I with HEP to promote self management of symptoms Pt will demonstrate improvements in postural awareness and body mechanics throughout the day Mcc Goals: Pt will tolerate prolonged standing and walking > 20 min without pain Pt will demonstrate ability to squat and picker object from the floor with proper mechanics and without pain Pt will demonstrate improvements in function as evidenced by statistically significant improvement in Modified Oswestry Low Back Pain Disability Index Questionnaire Treatment Plan: Modalities to reduce pain, spasms and effusion. Manual therapy to restore motion and function. Therapeutic exercise to improve strength and flexibility. Neuromuscular re-education for posture and balance. Therapeutic activities to return to functional activities of daily living. Electronically signed by: Josselyn Mchugh, PT, DPT Please sign and return to therapist. Thank you for your referral.
--- NOTE | 2025-08-25 08:13 | MHC.PT.DC ---
[facility] [place] Office [place] Office [place] Office [address] Moises Vail [address] [phone] F: [phone] F: [phone] F: [phone] F: [phone] Physical Therapy Discharge Report Diagnosis: Low Back Pain, unspecified Lumbago. Patient has new low back pain starting about a month after Right L4-L5 lumbar microdiskectomy on 04/28/25 Date of Surgery: Date of Evaluation: 08/03/25 Date of Discharge: 08/25/25 Treatments to Date: 1 Cancellations to Date: 5 No Shows to Date: 1 Discharge Status: Visit Non-compliance Discharge Summary: Pt was evaluated for PT on 08/03/25. She has had 5 cancellations and 1 no show appointment since SOC. She is being D/C from skilled PT per [facility] attendance policy and visit non compliance. Pt current level of function unknown at this time Electronically signed by: Josselyn Mchugh, PT, DPT Please sign and return to therapist. Thank you for your referral.
== END 2025-08-25 08:11 | disposition home or self-care (01) ==
LOC: HO.PT 07:56
PROVIDERS: PCP Family Medicine; Visit Provider Physician Assistant
DX: M54.50 Low back pain, unspecified (principal); Z98.890 Other specified postprocedural states
CPT/HCPCS: 97110; 97162

== ENCOUNTER 2025-10-12 15:46 | Emergency (ER) | payer MEDICAID, SELFPAY ==
[2025-10-12 15:54] VITALS: BP 113/56; PULSE 100; RESP 16; TEMP 36.3; O2SAT 99; BMI 35.8
--- NOTE | 2025-10-12 15:55 | ED.GENADULT ---
HPI - General Adult General Chief complaint: Upper Respiratory Symptoms Stated complaint: Flu like symptoms Time Seen by Provider: 10/12/25 17:36 Source: patient, RN notes reviewed and old records reviewed Mode of arrival: ambulatory Limitations: no limitations History of Present Illness ED Provider: David [facility] narrative: Patient is a 40 year old female presenting to the emergency department with complaint of sore throat, cough, chills, and back pain since yesterday. States everyone in her household has been positive for flu since . MD complaint: sore throat, cough Related Data Home Medications ?Medication ?Instructions ?Recorded ?Confirmed meloxicam 15 mg tablet 15 mg PO DAILY PRN pain 04/15/25 04/15/25 Previous Rx's ?Medication ?Instructions ?Recorded acetaminophen 500 mg tablet 1,000 mg (2 x 500 mg) PO Q8H PRN 12/09/24 (Tylenol Extra Strength) pain #30 tabs oxycodone 5 mg tablet 5 mg PO Q6H PRN pain #20 tabs 04/28/25 Allergies Allergy/AdvReac Type Severity Reaction Status Date / Time No Known Allergies Allergy Mild UNKNOWN Verified 10/12/25 15:56 Review of Systems Review of Systems: as per hpi Yes all other systems are reviewed and are negative Constitutional: Constitutional: Reports as per HPI PMFSH Past Medical History Medical History (Updated 10/12/25 @ 17:37 by Kadi Hernandez NP) History of blood transfusion Anemia Seizures Tobacco dependence with current use Bilateral hand numbness Midline low back pain Vitamin D deficiency Cobalamin deficiency Chronic low back pain with right-sided sciatica Heart palpitations Surgical History (Updated 05/23/25 @ 09:51 by POONAM Lou) Hx of tubal ligation History of Family History Family History Mother No problems noted. 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 Blood pressure normal. Heart rate normal. Respiratory rate normal. Temperature normal. Oxygen saturation normal. Const General: cooperative, healthy appearing and no acute distress Orientation/consciousness: oriented to person, oriented to place, oriented to time and patient oriented x3 Limitations: no limitations HENMT Head: Yes normocephalic and Yes atraumatic Ears: external ears normal General nose exam: Normal external nose present Face and sinus: Yes face symmetric Mouth: oropharynx normal and moist mucous membranes Throat: Yes uvula midline Eyes Pupils: Equal, round and reactive pupils present Neck Neck: Yes normal visual inspection and Yes supple Resp Effort & Inspection: normal respiratory effort and able to speak in complete sentences Auscultation: clear to auscultation bilaterally Cardio Rate: regular rate Rhythm: regular rhythm Heart sounds: S1 normal heart sound present and S2 normal heart sound present GI Palpation (GI): Soft to palpation and nontender Auscultation: normoactive bowel sounds General: Yes no CVA tenderness Back/Spine/Pelvis Back: no CVA tenderness Skin General skin exam: elasticity normal and turgor normal Neuro General: oriented to person, oriented to place, oriented to time, patient oriented x3, moves all extremities, no focal motor deficits and CN's II-XI intact bilaterally Cranial nerves: Yes Equal, round and reactive pupils present Cognition (Neuro): normal cognition Extrem General: Yes full ROM, Yes no pedal edema and Yes no calf tenderness Psych Mental Status: mental status grossly normal Affect: normal affect Thought process: Normal thought process present Course Course Course Narrative: This is a rapid medical exam performed by Ignacia Hernandez NP: Additional HPI, ROS, PE not included below will be deferred to primary provider. Patient is a 40y/o F presenting to the ED with complaint of sore throat, cough, chills, back pain since yesterday. Everyone in her home positive for flu since . Plan: viral serology Medical Decision Making Medical Decision Making MDM Narrative: Patient is a 40 year old female presenting to the emergency department with complaint of sore throat, cough, chills, and back pain since yesterday. On exam patient is awake, A+Ox3, VS WNL, afebrile, normal neurological exam without focal deficits, physical exam findings as above. Given reported symptoms and physical exam findings, initial differential includes but is not limited to flu, COVID, other viral illness. Viral panel negative. Discussed with patient that given multiple other family members at home sick with influenza, it is still possible that she has influenza and is testing negative due to her symptoms being present for less than 24 hours. Discussed with patient it is also possible that she is having symptoms from a different viral upper respiratory infection. Recommended alternating Tylenol and ibuprofen, ensuring adequate fluid intake and rest. Advised patient to wear a mask while symptomatic. Follow up with PCP as needed. Return precautions discussed. Patient verbalized understanding of and agreement with plan. Differential Diagnosis Differential Diagnoses: The differential diagnosis associated with the presentation includes As per [facility] Admission/Observation Consideration of admission/observation: Escalation of care including admission/observation considered Patient would have been admitted to the hospital and transferred to appropriate facility had their clinical presentation warranted hospital admission. Lab Data [facility] Lab Attestation statement: I reviewed the patient's lab results. as per [facility] Labs: Lab Results 10/12/25 Range/Units 16:12 Influenza Type A (PCR) NEGATIVE (Negative) Influenza Type B (PCR) NEGATIVE (Negative) RSV RNA Qual (PCR) NEGATIVE (Negative) SARS-CoV-2 RNA (RT-PCR) NEGATIVE (Negative) External Record Review External record reviewed: Inpatient record, Office record and Outpatient record Discharge Plan Discharge Clinical Impression: Viral infection Patient Disposition: Home, Self-Care Instructions: Viral Syndrome (ED) Additional Instructions: You were evaluated in the emergency department today for cough. Your Covid, flu, and RSV tests were all negative. Your symptoms are likely related to a viral illness which will resolve on its own with time and rest. You should ensure adequate fluid intake, and can use Tylenol 650 mg or ibuprofen 600 mg every 6 hours as needed for fever or discomfort. We also recommend using over the counter nasal saline spray to thin your mucous. Please follow-up with your primary care provider this week. Return to the emergency department if you develop chest pain, worsening shortness of breath, difficulty swallowing, fever 100.4? F or greater or any other concerning symptoms. Prescriptions: No Action acetaminophen [Tylenol Extra Strength] 500 mg tablet 1,000 mg PO Q8H PRN (Reason: pain) Qty: 30 0RF meloxicam 15 mg tablet 15 mg PO DAILY PRN (Reason: pain) Rx Instructions: Take it with food and full glass of water. oxycodone 5 mg tablet 5 mg PO Q6H PRN (Reason: pain ) Qty: 20 0RF Rx Instructions: Partial Fill upon patient request. Print Language: Mauritanian
[2025-10-12 17:02] LABS: Resp Syncy Virus RNA Qual PCR NEGATIVE (Negative); SARS COV2 PCR INHOUSE NEGATIVE (Negative)
--- OUTSIDE RECORDS SUMMARY | 2025-10-12 17:44 | XMS_ITS | Encounter Summary ---
Author Organization [employer] Address [address] [facility] [address] [place] [address] Care Team Providers Care Jira Administrator Name Role Phone Jazmín Quevedo MD Primary Care Provider [phone] Ar Adams Unavailable [phone] Encounter Details Date Type Department Care Team ([facility] st Contact Info) Description 10/12/2025 Orders Only GENERIC EXTERNAL DATA DEPARTMENT Provider, Generic External Data Social History Tobacco Use Types Packs/Day Years [...] Care Team (Late st Contact Info) Description 01/24/2026 10:30 AM EDT Immunization [facility] [address] [place] [id number] documented as of this encounter Procedures Procedure Name Priority Date/Time Associated Diagnosis Comments SARS COV2/INFLUENZA A/B AND RSV RNA QL NAAT Routine 10/12/2025 4:12 PM EST documented in this encounter Results * SARS-CoV-2 RNA, Influenza A/B, and RSV RNA, Ql NAAT (10/12/2025 4:12 PM EST) Influenza A PCR NEGATIVE Negative [facility] Influenza B PCR NEGATIVE Negative [facility] Resp Syncy Virus RNA Qual PCR NEGATIVE Negative [facility] SARS COV2 PCR NEGATIVE Negative [facility] Comment:All test results mus t be correlated with clinical findings.Negative results do not preclude SARS-CoV2, influenza Avirus, influenza B virus and/or RSV infectionand should not be used as the sole basis for treatment orother patient management decisions. Negative results must becombined with clinical observations, patient history, andepidemiological information.This test has not been evaluated for monitoring treatment ofinfection.This test has been authorized by the FDA under an EmergencyUse Authorization (EUA) for use by authorized laboratories.Testing performed on the [employer] GeneXpert utilizingreal-time RT-PCR.All SARS CoV2 and positive influenza A/B results arereported to [facility]. 10/12/2025 4:12 PM EST 10/12/2025 4:15 PM EST us Generic External Data Provider LAB MICROBIOLOGY - GENERAL ORDERABLES Final Result [facility] [address] [place] [address] [phone] documented in this encounter Visit Diagnoses Not on filedocumented in this encounter Additional Health Concerns Assessment Noted Time PHQ-9 Depression Total Score: 3 04/27/20 25 10:02 AM EDT documented as of this encounter Care Teams Jira Administrator Relationship Specialty Start Date End Date Jazmín Quevedo MD [address] [place] [phone] PCP - General Family Medicine 10/20/18 Ar Adams [address] [place] [address] Neurosurgery 03/29/25 documented as of this encounter
--- OUTSIDE RECORDS SUMMARY | 2025-10-12 17:44 | XMS_ITS | Encounter Summary ---
Author Organization [employer] Address [address] [place] [address] Care Team Providers Care Advertising Coordinator Name Role Phone Jazmín Quevedo MD Primary Care Provider [phone] Ar Adams Unavailable Reason for Visit * Reason Comments Med Refill Encounter Details Date Type Department Care Team ([facility] Contact Info) Description 03/10/2025 Refill [facility] [address] [place] [address] Yeison Erwin MD [address] [place] [address] Social History Tobacco Use Types Packs/Day Years [...] Info) Description 01/24/2026 10:30 AM EDT Immunization [facility] [address] [place] [address] documented as of this encounter Visit Diagnoses Not on filedocumented in this encounter Additional Health Concerns Assessment Noted Time PHQ-9 Depression Total Score: 0 12/24/19 23 9:04 AM EST documented as of this encounter Care Teams Advertising Coordinator Relationship Specialty Start Date End Date Jazmín Quevedo MD [address] [place] [phone] PCP - General Family Medicine 10/20/18 Ar Adams [address] [place] [address] Neurosurgery 03/29/25 documented as of this encounter
--- OUTSIDE RECORDS SUMMARY | 2025-10-12 17:44 | XMS_ITS | Encounter Summary ---
Author Organization [employer] Address [address] [place] [address] 7[address] [place] [address] Care Team Providers Care Clinic Supervisor Name Role Phone Jazmín Quevedo MD Primary Care Provider [phone] Ar Adams Unavailable [phone] Reason for Visit * Reason Comments Med Refill Encounter Details Date Type Department Care Team (Late st Contact Info) Description 04/15/[address] [facility] [address] [place], [place] [phone] Jazmín Quevedo MD [address] [place] [address] [phone] Social History Tobacco Use Types Packs/Day Years [...] Info) Description 01/24/2026 10:30 AM EDT Immunization [facility] [address] [place], [place] [phone] documented as of this encounter Visit Diagnoses Not on filedocumented in this encounter Additional Health Concerns Assessment Noted Time PHQ-9 Depression Total Score: 0 12/24/19 23 9:04 AM EST documented as of this encounter Care Teams Clinic Supervisor Relationship Specialty Start Date End Date Jazmín Quevedo MD [address] [place] [id number] PCP - General Family Medicine 10/20/18 Ar Adams [address] [place] [address] Drive [address] [place] [address] Neurosurgery 03/29/25 documented as of this encounter
--- OUTSIDE RECORDS SUMMARY | 2025-10-12 17:44 | XMS_ITS | Clinical Summary ---
Author Organization [employer] Address [address] [facility] [address] [place] [address] Care Team Providers Care Mutuel Clerk Name Role Phone Jazmín Quevedo MD Primary Care Provider [phone] Ar Adams Unavailable [phone] Allergies No known active allergies Medications cholecalciferol [...] as pharmacomtherapy, [facility], and [facility] pharmacy smoking cessation clinic Discussed [...] as pharmacomtherapy, [facility] smoking [facility], and [facility] pharmacy smoking cessation clinic Discussed USPSTF recommends annual lung cancer screening with low dose CT in people who meet the following criteria: -ages 50 to 80 years. -have a 20 pack-year smoking history. -currently smoke cigarettes or quit within the past 15 years. -LDCT: Posterior chest pain 03/01/2025 Acute midline low back pain without sciatica Overview (07/04/2025): -seen in ER 12/09/24 X ray There [...] 04/28/25 -recommended and referred for PT 05/12/25 -XR 07/04/25 XR/XR lumbar spine 4V min IMPRESSION: No acute bony abnormalities of the lumbar spine. Mild right convex scoliosis and mild to moderate degenerative spondylosis most notable at L3-S1. There is no evidence of instability on flexion and extension views. Assessment & Plan (05/12/2025 12:40 PM EDT): [...] care facilitated by Demetrio -dental home is [facility] -health care proxy given and filed 04/27/25 Assessment & Plan (04/27/2025 10:29 AM EDT): -next comprehensive annual evaluation due after 04/27/26 -eye care facilitated by Demetrio -dental home is [facility] -health care proxy given and filed 04/27/25 [...] -Seen once by me and twice by UC for migraine type headache. -Seen 08/2022 in [...] -Seen once by me and twice by UC for migraine type headache. -Seen 08/2022 in [...] 10/02/2022 Overview (10/02/2022): -Dx on exam 10/02/2022 -Saltese of elbow brace Assessment & Plan (10/02/2022 12:50 PM EST): -Dx on exam 10/02/2022 -Saltese of elbow brace Vitamin D deficiency 09/30/2022 Overview (05/12/2025): Lab Results Component Value Date [id number] 12.5 (L) 04/27/2025 -ordered Vit D level [...] Encounters Date Type Department Care Team Description 10/12/2025 Orders Only GENERIC EXTERNAL DATA DEPARTMENT Provider, Generic External Data 07/20/2025 Travel from Last 3 Months Immunizations Immunization Administration Dates Next Due DTaP 08/31/2013 HPV 9-Valent 07/25/2025,05/16/2025 HepB-CpG 05/12/2025 Influenza injectable quadriv alent IIV4 [...] Info) Description 01/24/2026 10:30 AM EDT Immunization [facility] MEDICINE [address] [place] [address] Health Maintenance Due Date Last Done Comments Diagnostic Breast Imaging 12/25/2024 12/26/2023, Mammogram 01/17/2025 12/26/2023, 05/2024, 07/02/2023, Additional history exists Hepatitis B Vaccines (2 of 2 - CpG 2-dose series) 06/09/2025 05/12/2025 COVID-19 Vaccine (3 - season) 2025 03/02/2021, 02/09/2021 Influenza Vaccine (#1) 2025 , 09/26/2020, 09/09/2019, Additional history exists HPV Vaccines (3 - 3-dose series) 11/16/2025 07/25/2025, 05/16/2025 SDOH Screening 04/19/2026 04/19/2025 Alcohol/Substance Use Screening [...] QL NAAT Routine 10/12/2025 4:12 PM EST HEPATITIS C AB W/REFL TO HCV RNA, QN, PCR Routine 04/27/2025 10:15 AM EDT Routine screening for STI (sexually transmitted infection) HIV 1/2 ANTIGEN/ANTIBODY, FOURTH GENERATION W/RFL Routine 04/27/2025 10:15 AM EDT Routine screening for STI (sexually transmitted infection) LIPID PANEL, STANDARD Routine 04/27/2025 10:15 AM EDT Screening cholesterol level BI MAMMOGRAM DIAGNOSTIC TOMOSYNTHESIS RIGHT Routine 12/26/2023 1:15 PM EST THINPREP PAP, HPV MRNA E6/E7 RFX HPV 16,18/45, CHLAMYDIA/N.GONORRHOEA E Routine 12/23/2022 9:47 AM EST Pap smear for cervical cancer screening from Last 3 Months or Most Recently Relevant to Health Maintenance Results * SARS-CoV-2 RNA, Influenza A/B, and RSV RNA, Ql NAAT (10/12/2025 4:12 PM EST) Influenza A PCR NEGATIVE Negative [facility] Influenza B PCR NEGATIVE Negative [facility] Resp Syncy Virus RNA Qual PCR NEGATIVE Negative [facility] SARS COV2 PCR NEGATIVE Negative [facility] Comment:All test results mus t be [...] use by authorized laboratories.Testing performed on the [employer] GeneXpert utilizingreal-time RT-PCR.All SARS CoV2 and positive influenza A/B results arereported to [facility]. 10/12/2025 4:12 PM EST 10/12/2025 4:15 PM EST us Generic External Data Provider LAB MICROBIOLOGY - GENERAL ORDERABLES Final Result [facility] [address] [place] [address] [phone] * Hepatitis C Antibody with Reflex to HCV, RNA, Quantitative, Real-Time PCR (04/27/2025 10:15 AM EDT) Hepatitis C Antibody Nonreactive Nonreactive [facility] Comment:Antibodies to HCV no t detected; does not exclude early acuteHCV infection. Blood Venous blood specimen / Unknown 04/27/2025 10:15 AM EDT 04/27/2025 12:00 PM EDT Jazmín Quevedo MD LAB BLOOD ORDERABLES Final Result Performing Organization Address [facility] Co de Phone Number [facility] [address] [place] [address] [phone] * HIV-1/2 Antigen and Antibodies, Fourth Generation, with Reflexes (04/27/2025 10:15 AM EDT) HIV AB/AG Nonreactive Nonreactive [facility] Comment:HIV-1 p24 Ag and/or HIV-1/HIV-2 Ab not detected.A test result that is nonreactive does not exclude thepossibility of exposure to or infection with HIV-1 and/orHIV-2. Nonreactive results in this assay for individualswith prior exposure to HIV-1 and/or HIV-2 may be due toantigen and antibody levels that are below the limit ofdetection of this assay.[employer] HIV Ag/Ab Combo assay result andsupplemental assay results should be interpreted inconjunction with the patient's clinical presentation,history and other laboratory results. If the results areinconsistent with clinical evidence, additional testing issuggested to confirm the result. Blood Venous blood specimen / Unknown 04/27/2025 10:15 AM EDT 04/27/2025 12:00 PM EDT Jazmín Quevedo MD LAB BLOOD ORDERABLES Final Result Performing Organization Address [facility]/ZIP Co de Phone Number [facility] [address] [place] [address] [phone] * (ABNORMAL) Lipid Panel, Standard (04/27/2025 10:15 AM EDT) Triglycerides 141 <150 mg/dL [facility] Comment:Desirable Triglyceri de: less than 150 mg/dLBorderline High Triglyceride 150-199 mg/dLHigh Triglyceride: 200-499 mg/dLVery High Triglyceride: greater than or equal to 5OO mg/dL Cholesterol 193 <200 mg/dL [facility] Comment:Desirable Cholestero l: less than 200 mg/dLBorderline High Cholesterol: 200-239 mg/dLHigh Cholesterol: greater than 239 mg/dL LDL Cholesterol Calculated 121(H) <100 mg/dL [facility] Comment:Desirable LDL: less than 100 mg/dLNear Optimal/Above Optimal LDL: 110- 129 mg/dLBorderline High LDL: 130-159 mg/dLHigh LDL: 160-189 mg/dLVery High LDL: greater than or equal to 190 mg/dL HDL Cholesterol 44 >40 mg/dL [facility] Comment:Desirable HDL: great er than 40 mg/dL Note: This HDL assay may give artificially low results in patients with liver disease. Blood Venous blood specimen / Unknown 04/27/2025 10:15 AM EDT 04/27/2025 12:00 PM EDT Jazmín Quevedo MD LAB BLOOD ORDERABLES Final Result Performing Organization Address City/State/[facility] Co de Phone Number [facility] [address] [place] [phone] * BI Mammogram Diagnostic Tomosynthesis Right (12/26/2023 1:15 PM EST) Anatomical Region Laterality Modality Breast Right Mammography 12/26/2023 1:15 PM EST Narrative 12/26/2023 1:52 PM EST [facility] [address] [place] [address] Mammography Report Signed with Glenn Patient: Minal Rodriguez MR#: [id number] 32 : 1985 Acct:[id number] Age/Sex: 38 / F ADM Date: 12/26/23 Loc: HO.MAMMO Attending Dr: Jazmín Quevedo MD Ordering Physician: Jazmín Quevedo MD Results: 3.12MProbably Benign Finding - 12 month F/U Suggested Date of Service: 12/26/23 Follow Up: 12 month diagnos tic follow up Procedure(s): MM tomosynthesis diagnostic RT Accession Number(s): [id number] cc: Jazmín Quevedo MD ADDENDUM ADDENDUM: Typographical [...] in OV> 12/26/23 1348 DD/ 1315 TD/TT: Blindstitch Lining Feller: Procedure Note Donotuseinterpreter, Image - 12/29/2023 [facility] [address] [place], [place] [address] Mammography Report Signed with Addenda Patient: Perri RodriguezNVWashington#: [id number] 32 : 1985Acct:[id number] Age/Sex: 38 / FADM Date: 12/26/23 Loc: HO.MAMMO Attending Dr: Jazmín Quevedo MD Ordering Physician: Jazmín Quevedo MD Results: 3.12MProbably Benign Finding - 12 month F/U Suggested Date of Service: 12/26/23Follow Up: 12 month diagnos tic follow up Procedure(s): MM tomosynthesis diagnostic RT Accession Number(s): [id number] cc: Jazmín Quevedo MD ADDENDUM ADDENDUM: Typographical [...] in OV> 12/26/23 1348 DD/ 1315 TD/TT: Blindstitch Lining Feller: us Jazmín Quevedo MD IMG BI PROCEDURES Edited R esult - Final * Thinprep PAP, HPV mRNA E6/E7 RFX HPV 16,18/45, Chlamydia/N. Gonorrhoeae (12/23/2022 9:47 AM EST) Clinical Information: NO HX ABNORMAL PAPS Guided Therapeuticst LMP: NONE GIVEN Guided Therapeuticst Prev. PAP: NONE GIVEN Guided Therapeuticst Prev. BX: NO [facility] [employer] SOURCE: None given [facility] Statement Of Adequacy: [employer] Comment: Satisfactory for evaluation. Endocervical/transformation zone component present. Interpretation/Re sult: Negative for intraepithelial lesion or malignancy. 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 Cervical sources are required for HPV testing. If a vaginal source from a patient who has had a total hysterectomy with removal of cervix was submitted, please contact the testing laboratory for alternative testing options. For additional information, please refer to http://education.[employer]/faq/WDH939z7 (This link if provided for information/ educational purposes only.) Chlamydia trachomatis RNA, TMA, Urogenital NOT DETECTED NOT DETECTED [facility] Neisseria gonorrhoeae RNA, TMA, Urogenital NOT DETECTED NOT DETECTED [facility] Comment [employer] Comment: The analytical performance characteristics of this assay, when used to test SurePath(TM) specimens have been determined by [employer]. The modifications have not been cleared or approved by the FDA. This assay has been validated pursuant to the CLIA regulations and is used for clinical purposes. For additional information, please refer to https://Spontacts.[employer]/faq/JKF483 (This link is being provided for information/ educational purposes only.) Cytology specimen container (physical object) 12/23/2022 9:47 AM EST 12/24/2022 10:14 AM EST Jazmín Quevedo MD LAB PATHOLOGY ORDERABLES F inal Result [facility] [address], [place] [address] [facility] [address] [facility], ([address]) [place] [address] from Last 3 Months or Most Recently Relevant to Health Maintenance Insurance [employer] Advance Directives Documents on File Type Date Recorded Patient Learning Support Aide Expl anation Advance Directives and Living Will 04/27/2025 1:38 PM Health Care Proxy Care Teams Mutuel Clerk Relationship Specialty Start Date End Date Letcher, MD Jazmín [address] [place] [phone] PCP - General Family Medicine 10/20/18 Ar Adams [address] [place] [phone] Neurosurgery 03/29/25
[2025-10-12 18:02] VITALS: BP 113/56; PULSE 100; RESP 16; TEMP 36.3; O2SAT 99
== END 2025-10-12 18:02 | disposition home or self-care (01) ==
PROVIDERS: Registered Nurse Emergency; Emergency Provider Emergency Medicine; PCP Family Medicine
DX: B34.9 Viral infection, unspecified (principal); R05.9 Cough, unspecified; J02.9 Acute pharyngitis, unspecified; Z03.818 Encounter for observation for suspected exposure to other biological agents ruled out; F17.210 Nicotine dependence, cigarettes, uncomplicated
CPT/HCPCS: 87637; 99282; 99283